=== PATIENT | male | born 1965 | race Caucasian/White ===

== ENCOUNTER → 2017-11-20 | Outpatient (CLI) | payer OTHER ==
[2017-11-20 15:54] LABS: BASO # 0.1 10^3/uL (0.0-0.2); BASO % 1.2 % (0.0-1.0); EOS # 0.5 10^3/uL (0.0-0.50); EOS % 7.2 % (0.0-3.0); HEMATOCRIT 43.3 % (42.0-52.0); HEMOGLOBIN 14.6 g/dl (14.0-18.0); IMMATURE GRANULOCYTE % 0.1 % (0-0); LYMPH # 1.9 10^3/uL (1.5-4.5); LYMPH % 25.4 % (24.0-44.0); MEAN CORPUSCULAR HEMOGLOBIN 30.8 pg (27.0-33.0); MEAN CORPUSCULAR HGB CONC 33.7 g/dl (32.0-36.5); MEAN CORPUSCULAR VOLUME 91.4 fl (80.0-96.0); MONO # 0.5 10^3/uL (0.0-0.8); MONO % 7.1 % (0.0-5.0); NEUTROPHILS # 4.3 10^3/uL (1.8-7.7); PLATELET COUNT, AUTOMATED 329 10^3/uL (150-450); RED BLOOD COUNT 4.74 10^6/uL (4.30-6.10); RED CELL DISTRIBUTION WIDTH 12.7 % (11.5-14.5); WHITE BLOOD COUNT 7.4 10^3/uL (4.0-10.0)
[2017-11-20 17:20] LABS: ANION GAP 5 MEQ/L (8-16); BLOOD UREA NITROGEN 13 MG/DL (7-18); CARBON DIOXIDE LEVEL 31 MEQ/L (21-32); CHLORIDE LEVEL 104 MEQ/L (98-107); CREATININE FOR GFR 0.97 MG/DL (0.70-1.30); GLOMERULAR FILTRATION RATE > 60.0 (>56); GLUCOSE, FASTING 82 MG/DL (70-105); POTASSIUM SERUM 4.8 MEQ/L (3.5-5.1); SODIUM LEVEL 140 MEQ/L (136-145)
== END ==
LOC: M LAB 15:07
DX: I70.213 Atherosclerosis of native arteries of extremities with intermittent claudication, bilateral legs (principal)
CPT/HCPCS: 80048

== ENCOUNTER → 2017-12-06 | Outpatient (CLI) | payer OTHER ==
[~2017-12-06] MED LIST: HEPARIN 1,000 UNITS/ML 10ML VIAL (FOR RADIOLOGY& DIALYSIS ONLY) As Ordered; ISOVUE-300 61% 50ML VIAL (Q9967) As Ordered; MIDAZOLAM INJ 2 MG/2 ML VIAL (J2250) As Ordered; fentaNYL 100 MCG/2 ML INJECTION (J3010) As Ordered
== END | disposition home or self-care (01) ==
LOC: M IRPRO 06:54
DX: I70.213 Atherosclerosis of native arteries of extremities with intermittent claudication, bilateral legs (principal)
CPT/HCPCS: 36246

== ENCOUNTER → 2018-02-07 | Outpatient (CLI) | payer OTHER | LOC: M RAD 10:46 | DX: I70.213 Atherosclerosis of native arteries of extremities with intermittent claudication, bilateral legs (principal); I87.393 Chronic venous hypertension (idiopathic) with other complications of bilateral lower extremity; F17.218 Nicotine dependence, cigarettes, with other nicotine-induced disorders | CPT/HCPCS: 93923 ==

== ENCOUNTER → 2021-01-18 | Outpatient (CLI) | payer OTHER, MEDICAID ==
[~2021-01-18] MED LIST changes: +ASPI-255 PO; +ATOR1TAB21 PO; -HEPARIN 1,000 UNITS/ML 10ML VIAL (FOR RADIOLOGY& DIALYSIS ONLY) As Ordered; -ISOVUE-300 61% 50ML VIAL (Q9967) As Ordered; -MIDAZOLAM INJ 2 MG/2 ML VIAL (J2250) As Ordered; -fentaNYL 100 MCG/2 ML INJECTION (J3010) As Ordered
[2021-01-18 13:53] LABS: CALCIUM LEVEL 10.4 MG/DL (8.5-10.1); CREATININE FOR GFR 1.37 MG/DL (0.70-1.30); MAGNESIUM LEVEL 2.3 MG/DL (1.8-2.4); POTASSIUM SERUM 4.1 MEQ/L (3.5-5.1)
== END ==
LOC: M WUC 11:00
PROVIDERS: ATTEND Student in an Organized Health Care Education/Training Program
DX: E83.52 Hypercalcemia (principal)

== ENCOUNTER → 2021-01-25 | Outpatient (CLI) | payer MEDICAID ==
[~2021-01-25] MED LIST changes: +ALBU83IN INH; +AMLO1TAB24 PO; +ASPI81TA26 PO; +BUDE10.7 INH; +FURO40TA2 PO; +GNP8.6TA PO; +MUCI600T31 PO; +PRED20TA PO; +VENTAER INH
--- NOTE | 2021-01-25 16:29 | RADONC.CN ---
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 He is referred urgently by Dr. Sinha for this telehealth consultation for RT in anticipation of EBUS biopsy on 01/30/21. Diagnosis/Treatment History Oncologic History December 2020: Patient notes onset of facial swelling plethora, hoarseness and orthopnea, generalized body ache He presented to [facility] where labs showed hypercalcemia, and imaging revealed extensive mediastinal adenopathy encasing the SVC as well as infradiaphragmatic shivani disease, and heterogenous appearing kidney parenchyma BL, which may represent malignancy. No large peripheral lung lesions, 2 small peripheral nodules <1cm. CT head with concern for intracranial lesions. He was discharged home for workup. He saw Dr. Sinha on 01/24/21 with plan to proceed with EBUS on 01/30/21. Interval History Patient and are on the phone. He is audibly hoarse. She does most of the talking. She reports he cannot tolerate lying flat due to SOB and that he has SOB at rest. His symptoms started about 3 weeks ago prior to presentation to [facility]. They deny syncope/near syncope and dysphagia. He notes the swelling has gradually worsened such that he cannot button the top button on his shirts as before. He is a current smoker. He denies fevers, chills, night sweats and weight loss. He denies paresthesias and weakness. He denies PHAM and other sensory changes. Past Medical History: HTN PVD COPD Past Surgical History: Appendectomy Cholecystecomy Hernia repair Fem-pop bypass Family History: Non-contributory Social History: 50+ pack year current smoker Drinks alcohol Allergies / Meds Allergies: Coded Allergies: No Known Allergies (Verified , 12/19/17) Home Meds Reported Medications Aspirin (Aspirin EC) 325 Mg Tabec, 325 MG PO DAILY, TAB 12/19/17 Atorvastatin Calcium (Atorvastatin Calcium) 20 Mg Tab, 20 MG PO DAILY 12/19/17 Review of Systems Events since last encounter N/A telehealth Vital Signs N/A telehealth Other Physical Findings N/A telehealth Diagnostic and Laboratory Diagnostic Review Radiologic images, relevant labs and pathology reports were personally reviewed and discussed with Mr. Reeves. Assessment and Plan Impression Mr. 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 He is referred urgently by Dr. Sinha for this telehealth consultation for RT in anticipation of EBUS biopsy on 01/30/21. Stage Undetermined, biopsy pending Performance Status ECOG 3 Plan We had an extensive discussion with Mr. Reeves regarding the diagnosis at hand and available therapeutic options. I have reviewed his imaging to date. His CT scans show large confluent shivani aggregates in the mediastinum in the absence of significant hilar adenopathy or peripheral lung mass. The shivani masses are encasing the SVC and there is significant superficial collateralization noted. There is retroperitoneal adenopathy L>R as well as BL enlarged and heterogenously enhancing kidneys with a possible right lateral upper pole mass. His CT head has several small foci of enhancement in the cerebral hemispheres which are indeterminate. Clinically he has subacute SVC syndrome. He would benefit from prompt therapy which given the possibility that this is a high grade malignancy (either lymphoma or SCLC) should be initiated after tissue is obtained. I have discussed this with Dr. Sinha who is planning biopsy on 01/30/21. Ideally RT to the mediastinum will proceed the same day as biopsy. I would hold on high dose steroid for now as these can cloud diagnosis of l ymphoma. I recommend 30 Gy in 10 fractions with 3D planning and daily CBCT for localization We discussed the logistics of receiving radiation therapy in detail including the need for a 1-time planning session. This will occur 01/26/21. We reviewed the side effects of treatment including esophagitis, skin reaction and fatigue. After discussing the risks, benefits and alternatives to radiation therapy, Mr. Reeves was amenable to pursuing radiotherapy. All questions were answered to the patient's satisfaction. We instructed the patient that if there were any questions,concerns or changes in clinical status in the interim to contact us. We also counselled that if he develops near syncopal symptoms, dysphagia, or increasing SOB that he should present to the ED here to expedite therapy to relieve the obstruction. Once a tissue diagnosis is made he can initiate care with medical oncology here. He should have a MRI head and PET-CT to complete his imaging workup in any event. I or Dr. Sinha can order these. Recommendations Palliative RT 30 Gy in 10 fractions to the mediastinal mass for SVC syndrome Simulation 01/26/21 This will follow EBUS biopsy on 01/30/21 unless his condition worsens in the interim MRI head and PET-CT to complete radiographic staging Billing Statement This is a telehealth consultation. Total time of [20] minutes was spent preparing for the visit [2], obtaining HPI [3], examining the patient [0], reviewing diagnostic tests [4], discussing management options [5], coordinating care [1], and writing this note [5]. MARY GRACE SPENCE MD Jan 25, 2021 16:29
== END ==
LOC: M ONCR 14:39
PROVIDERS: ATTEND General Practice
DX: R91.8 Other nonspecific abnormal finding of lung field (principal); I87.1 Compression of vein; C77.1 Secondary and unspecified malignant neoplasm of intrathoracic lymph nodes; E83.52 Hypercalcemia; R49.9 Unspecified voice and resonance disorder; I10 Essential (primary) hypertension; J44.9 Chronic obstructive pulmonary disease, unspecified; F17.200 Nicotine dependence, unspecified, uncomplicated

== ENCOUNTER → 2021-01-25 | Outpatient (CLI) | payer OTHER, MEDICAID | LOC: M LABSMTC 13:16 | PROVIDERS: ATTEND Anesthesiology | DX: Z01.812 Encounter for preprocedural laboratory examination (principal); Z20.822 Contact with and (suspected) exposure to COVID-19 ==

== ENCOUNTER 2021-01-27 11:09 | Inpatient (IN) | payer MEDICAID ==
[~2021-01-27] VITALS: Ht 180.3 cm; Wt 72.9 kg
[~2021-01-27 11:09] MED LIST changes: -ALBU83IN INH; -GNP8.6TA PO
--- NOTE | 2021-01-27 11:43 | REP ---
INDICATION: DYSPNEA/COUGH COMPARISON: 01/09/2021 TECHNIQUE: Portable AP view of the chest FINDINGS: Right lower lobe opacity including moderate pleural effusion. Remainder of the lung diana are well aerated and clear. Cardiac silhouette is normal. Skeletal structures intact. IMPRESSION: Moderate right lower lobe effusion and underlying airspace disease. <Electronically signed by Neo Campbell > 01/27/21 [id number]
[2021-01-27 11:54] LABS: BASO % 0.2 % (0.0-1.0); EOS # 1.4 10^3/uL (0.0-0.5); EOS % 6.5 % (0.0-3.0); HEMATOCRIT 34.5 % (42.0-52.0); LYMPH # 0.4 10^3/uL (1.5-5.0); LYMPH % 1.9 % (24.0-44.0); MEAN CORPUSCULAR HEMOGLOBIN 28.5 pg (27.0-33.0); MEAN CORPUSCULAR HGB CONC 31.9 g/dl (32.0-36.5); MEAN CORPUSCULAR VOLUME 89.4 fl (80.0-96.0); MONO # 1.1 10^3/uL (0.0-0.8); MONO % 5.1 % (2.0-8.0); NEUTROPHILS # 17.8 10^3/uL (1.5-8.5); NEUTROPHILS % 85.6 % (36.0-66.0); PLATELET COUNT, AUTOMATED 598 10^3/uL (150-450); RED BLOOD COUNT 3.86 10^6/uL (4.30-6.10); WHITE BLOOD COUNT 20.8 10^3/uL (4.0-10.0)
[2021-01-27 12:05] LABS: INR 0.97; PROTHROMBIN TIME 13.1 SECONDS (12.5-14.3)
[2021-01-27] MEDS ORDERED: GNP8.6TA PO (12:09)
[2021-01-27] MEDS ORDERED: ALBU83IN INH (12:09)
[2021-01-27 12:34] LABS: ALBUMIN 3.3 GM/DL (3.2-5.2); ALT/SGPT 18 U/L (12-78); BILIRUBIN,DIRECT 0.1 MG/DL (0.0-0.2); BILIRUBIN,TOTAL 0.4 MG/DL (0.2-1.0); BLOOD UREA NITROGEN 32 MG/DL (7-18); CALCIUM LEVEL 12.6 MG/DL (8.5-10.1); CARBON DIOXIDE LEVEL 31 MEQ/L (21-32); CHLORIDE LEVEL 98 MEQ/L (98-107); CK-MB VALUE MASS 1.1 NG/ML (<3.6); CPK CREATINE PHOSPHOKINASE 25 U/L (39-308); GLOMERULAR FILTRATION RATE 41.6 (>56); GLUCOSE, FASTING 99 MG/DL (70-100); NT-PRO BNP 1663 PG/ML (<125); POTASSIUM SERUM 4.5 MEQ/L (3.5-5.1); SODIUM LEVEL 134 MEQ/L (136-145); TOTAL PROTEIN 6.5 GM/DL (6.4-8.2); TROPONIN I < 0.02 NG/ML (< 0.10)
[2021-01-27] MEDS ORDERED: cefTRIAXone SOD 2 GM in D5W MINI-BAG PLUS 50 ML IV ONE (12:40)
[2021-01-27 12:43] LABS: RSV AMPLIFICATION NEGATIVE (NEGATIVE)
[2021-01-27] MEDS ORDERED: NS 1,000 ML IV ONE (12:50)
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
[2021-01-27] MEDS ORDERED: ACETAMINOPHEN TAB 650MG DOSE (2X325MG) PO PRN (13:40)
[2021-01-27] MEDS ORDERED: propofoL 200 MG/20 ML VIAL As Ordered ONE (14:31)
[2021-01-27] MEDS ORDERED: MIDAZOLAM INJ 2MG/2ML VIAL (J2250 PER 1MG) As Ordered ONE (14:31)
[2021-01-27] MEDS ORDERED: LIDOCAINE 2% 100MG/5ML SDV (FOR ANES.) As Ordered ONE (14:31)
[2021-01-27] MEDS ORDERED: SUGAMMADEX SODIUM 500 MG/5 ML VIAL (BRIDION) As Ordered ONE (14:31)
[2021-01-27] MEDS ORDERED: dexameTHASONE 4 MG/ML 1ML VIAL (J1100 PER 1MG) As Ordered ONE (14:31)
[2021-01-27] MEDS ORDERED: KETOROLAC 60MG 2ML VIAL As Ordered ONE (14:31)
[2021-01-27] MEDS ORDERED: fentaNYL 100 MCG/2 ML INJECTION (J3010) As Ordered ONE (14:31)
[2021-01-27] MEDS ORDERED: ONDANSETRON 4MG/2ML VIAL As Ordered ONE (14:31)
[2021-01-27] MEDS ORDERED: ROCURONIUM BROMIDE 50 MG/5 ML VIAL As Ordered ONE (14:31)
[2021-01-27] MEDS ORDERED: EPINEPHrine 1MG/10ML SYRINGE 1.5IN As Ordered ONE (15:19)
[2021-01-27] MEDS ORDERED: MUPIROCIN 2% OINT 22 GM TUBE As Ordered ONE (15:19)
[2021-01-27] MEDS ORDERED: CETACAINE SPRAY 5GM As Ordered ONE (15:19)
[2021-01-27] MEDS ORDERED: KETAMINE HCL 200 MG/20 ML VIAL As Ordered ONE (15:19)
[2021-01-27] MEDS ORDERED: BUPIVACAINE HCL 0.5% 10ML VIAL As Ordered ONE (15:19)
[2021-01-27] MEDS ORDERED: GLYCOPYRROLATE INJ 0.2 MG/ML 2 ML VIAL As Ordered ONE (15:19)
[2021-01-27] MEDS ORDERED: THROMBIN SOLN 20,000 UNITS KIT As Ordered ONE (15:19)
[2021-01-27] MEDS ORDERED: BUPIVACAINE LIPOSOME/PF 1.3% 20ML VIAL (13.3MG/ML)(EXPAREL)(C9290 PER1MG) As Ordered ONE (15:20)
[2021-01-27] MEDS ORDERED: MUPIROCIN 2% OINT 22 GM TUBE TOP ONE (16:00)
[2021-01-27] MEDS ORDERED: ceFAZolin SOD 2 GM in IV 1 EA IV ONE (16:00)
[2021-01-27] MEDS ORDERED: VANCOMYCIN HCL 1,000 MG, VIAL MATE ADAPTER 1 EACH in NS 250 ML IV SCH (16:05)
[2021-01-27] MEDS ORDERED: ALBUTEROL SULFATE 2.5 MG/0.5 ML INH NEB SOLN INH PRN (16:45)
[2021-01-27 17:13] LABS: PTH INTACT 10.7 PG/ML (18.5-88.0)
--- NOTE | 2021-01-27 17:39 | REP ---
INDICATION: POST OP IN PACU COMPARISON: 01/27/2021 at 11:35 a.m. TECHNIQUE: Portable AP view of the chest FINDINGS: Patient is status post right chest tube and the previously noted moderate pleural effusion and right basilar atelectasis has improved. No obvious pneumothorax. Left hemithorax remains stable and clear. Mediastinum and cardiac silhouette are grossly normal. Skeletal structures are intact. IMPRESSION: Right chest tube in stable position. Decreased right pleural effusion and right basilar atelectasis. <Electronically signed by Neo Campbell > 01/27/21 [id number]
[2021-01-27] MEDS ORDERED: ONDANSETRON 4MG/2ML VIAL IV PRN ×2 (17:40→19:35)
[2021-01-27] MEDS ORDERED: BISACODYL 10 MG SUPP PR PRN (17:40)
[2021-01-27] MEDS ORDERED: NORCO, ANEXSIA 5/325MG TABLET (HYDROcodone/ACETAMINOPHEN) PO PRN (17:40)
[2021-01-27] MEDS ORDERED: LEVALBUTEROL 1.25 MG/0.5 ML CONCENTRATE NEB NEB PRN (17:40)
[2021-01-27] MEDS ORDERED: PERCOCET 5MG/325MG TAB PO PRN (17:40)
[2021-01-27] MEDS ORDERED: D5W/0.9% SODIUM CHLORIDE 1,000 ML IV SCH (18:00)
[2021-01-27 18:12] LABS: LDH LACTATE DEHYDROGENASE 329 U/L (87-241)
--- NOTE | 2021-01-27 18:16 | RADENCPD ---
Date/Time of Encounter Date of Encounter: Jan 27, 2021 Time of Encounter: 18:10 Encounter Patient underwent EBUS and biopsy with Dr. Baez today. The initial impression on the biopsy specimen was NSCLC. He came down for his first fraction of radiation thereafter. His breathing was notably better than when I met him on . He was breathing comfortably on room air. He was far less orthopneic laying flat for treatment than he was on the CT table for simulation. We administered a large fraction which should tide him over until we resume treatment on Saturday morning @ 11:00AM. Recommend keeping him on IV steroids for the weekend at the present dose. These can be converted to a PO taper as he approaches discharge readiness. I will visit with the patient in greater depth after treatment on Saturday. MARY GRACE SPENCE MD Jan 27, 2021 18:16
[2021-01-27 18:26] LABS: PH BODY FLUID 7.564 UNITS (NOT ESTABLISHED); SOURCE, BODY FLUID pH PLEURAL
[2021-01-27] MEDS: MOM 30ML SUSPENSION UDC PO SCH (18:35)
[2021-01-27] MEDS: PANTOPRAZOLE 40MG TAB (PROTONIX) PO SCH (18:36)
--- NOTE | 2021-01-27 18:49 | ECGEPIP ---
[facility] - ED Test Date: 2021-01-27 Pat Name: COLIN THOMSON Department: Room: - Gender: Male Insurance Special Agent: ALLISON : [id number] Requested By: Yohannes Sevilla Order Number: [id number] Reading MD: Krupa Aviles Measurements Intervals [place] Rate: 88 P: 40 NC: 128 QRS: 42 QRSD: 92 T: 43 QT: 328 QTc: 396 Interpretive Statements Normal sinus rhythm Cannot rule out Anterior infarct , age undetermined NSTTW abnormalities low voltage limb No prior Electronically Signed on 01-27-2021 18:49:23 EST by Krupa Aviles
[2021-01-27 19:02] VITALS: BP 122/96
[2021-01-27 19:14] LABS: AMYLASE, BODY FLUID 8 U/L (NOT ESTABLISHED); CHOLESTEROL, BODY FLUID < 50 MG/DL (NOT ESTABLISHED); LDH, BODY FLUID 118 U/L (NOT ESTABLISHED); SOURCE, BODY FLUID ALBUMIN PLEURAL; SOURCE, BODY FLUID AMYLASE PLEURAL; SOURCE, BODY FLUID CHOL PLEURAL; SOURCE, BODY FLUID GLUCOSE PLEURAL; SOURCE, BODY FLUID LDH PLEURAL; SOURCE, BODY FLUID TOT PROTEIN PLEURAL; SOURCE, BODY FLUID TRIG PLEURAL; TOTAL PROTEIN, BODY FLUID 2.9 G/DL (NOT ESTABLISHED); TRIGLYCERIDE, BODY FLUID 15 MG/DL (NOT ESTABLISHED)
[2021-01-27] MEDS: VANCOMYCIN HCL 1,000 MG, VIAL MATE ADAPTER 1 EACH in NS 250 ML IV SCH (19:16)
[2021-01-27 19:26] LABS: SOURCE, BODY FLUID PLEURAL
[2021-01-27 19:27] LABS: APPEARANCE, BODY FLUID HAZY (CLEAR); PLEURAL FL COLOR YELLOW (COLORLESS)
[2021-01-27] MEDS ORDERED: fentaNYL 100 MCG/2 ML INJECTION (J3010) IV PRN (19:35)
[2021-01-27] MEDS ORDERED: oxyCODONE 5MG TAB PO PRN (19:35)
[2021-01-27] MEDS ORDERED: LR 1,000 ML IV SCH (19:35)
[2021-01-27 20:00] VITALS: BP 131/85; O2SAT 95
[2021-01-27] MEDS ORDERED: LEVALBUTEROL 1.25 MG/0.5 ML CONCENTRATE NEB NEB SCH (20:00)
[2021-01-27] MEDS: ALBUTEROL SULFATE 2.5 MG/0.5 ML INH NEB SOLN INH SCH (20:00)
[2021-01-27] MEDS: ADVAIR HFA 230/21MCG INHALER INH SCH (20:10)
[2021-01-27] MEDS: DOCUSATE SODIUM 100MG CAPSULE PO SCH (20:38)
[2021-01-27] MEDS: CEFEPIME HCL 1 GM in D5W MINI-BAG PLUS 50 ML IV SCH (20:38)
[2021-01-27] MEDS: SENNA 8.6 MG TAB (SENOKOT) PO SCH (20:38)
[2021-01-27] MEDS: KETOROLAC 30 MG/ML 1ML VIAL IV SCH (20:38)
[2021-01-27] MEDS: guaiFENesin ER 600 MG TAB PO SCH (20:38)
[2021-01-27 20:58] LABS: OSMOLALITY URINE 406 MOSM/KG (50-1400)
[2021-01-27 21:00] VITALS: BP 104/73
[2021-01-27 21:19] LABS: CREATININE,RANDOM URINE 54.4 MG/DL; SODIUM,RANDOM URINE 71 MEQ/L; UREA NITROGEN RANDOM URINE 388 MG/DL
[2021-01-27] MEDS: HEPARIN SOD (PORCINE) 5000UNITS/ML 1ML VIAL/SYRINGE SQ SCH (21:29)
[2021-01-27] MEDS: methylPREDNISolone 40MG 1ML VIAL IV SCH (21:29)
[2021-01-27 22:00] VITALS: BP 102/75
[2021-01-28] VITALS (8 sets, daily range): BP systolic 111–141; BP diastolic 71–99
[2021-01-28] MEDS: KETOROLAC 30 MG/ML 1ML VIAL IV SCH ×2 (02:57→08:45)
[2021-01-28] MEDS: methylPREDNISolone 40MG 1ML VIAL IV SCH ×3 (05:07→22:20)
[2021-01-28] MEDS: CEFEPIME HCL 1 GM in D5W MINI-BAG PLUS 50 ML IV SCH ×3 (05:07→22:20)
[2021-01-28 05:08] LABS: HEMATOCRIT 35.2 % (42.0-52.0); HEMOGLOBIN 10.8 g/dl (13.5-17.5); MEAN CORPUSCULAR HGB CONC 30.7 g/dl (32.0-36.5); MEAN CORPUSCULAR VOLUME 91.2 fl (80.0-96.0); PLATELET COUNT, AUTOMATED 519 10^3/uL (150-450); RED BLOOD COUNT 3.86 10^6/uL (4.30-6.10); WHITE BLOOD COUNT 17.2 10^3/uL (4.0-10.0)
[2021-01-28] MEDS: HEPARIN SOD (PORCINE) 5000UNITS/ML 1ML VIAL/SYRINGE SQ SCH ×3 (05:08→22:21)
[2021-01-28 05:29] LABS: ALBUMIN 2.8 GM/DL (3.2-5.2); BILIRUBIN,TOTAL 0.2 MG/DL (0.2-1.0); CALCIUM LEVEL 10.9 MG/DL (8.5-10.1); CREATININE FOR GFR 1.87 MG/DL (0.70-1.30); GLOMERULAR FILTRATION RATE 39.8 (>56); MAGNESIUM LEVEL 2.7 MG/DL (1.8-2.4); POTASSIUM SERUM 4.8 MEQ/L (3.5-5.1); TOTAL PROTEIN 6.7 GM/DL (6.4-8.2)
[2021-01-28 06:09] LABS: ABG BASE EXCESS 0.5 (-2.0-2.0); ABG HCO3 25.3 MEQ/L (22.0-26.0); ABG O2 SATURATION 98.9 % (95.0-99.0); ABG PARTIAL PRESSURE CO2 41.3 mmHg (35.0-45.0); ABG TOTAL CO2 26.6 MEQ/L (22.0-29.0); ABG pH (ARTERIAL) 7.405 UNITS (7.350-7.450)
[2021-01-28] MEDS: ADVAIR HFA 230/21MCG INHALER INH SCH ×2 (07:35→19:39)
--- NOTE | 2021-01-28 07:57 | IPNPDOC ---
Subjective Date Seen The patient was seen on 01/28/21. Subjective Chief Complaint/HPI Subjective: Seen at bedside. No acute distress, eating his breakfast. Had one round of radiation yesterday afternoon. States he feels much better than yesterday. Denies any sob, CP, abdominal discomfort, fever, chills, n/v/d. PHYSICAL EXAMINATION: VITAL SIGNS: see below GENERAL APPEARANCE: Patient is a pleasant and agreeable male who is laying in bed, + accessory muscles for breathing HEENT: EOMI. facial redness and swelling still present. Hoarseness of voice. Uvula and tongue midline. No posterior oropharyngeal erythema. Unable to appreciate significant cervical, axillary lymphadenopathy CARDIOVASCULAR: Regular rate and rhythm. PMI non-displaced. Enlarged veins over anterior chest wall noted. No JVD. no m/g/r LUNGS: Wheezing throughout, dullness to percussion more prominent on the right lower lobe, decreased tactile fremitus with mild asymmetrical chest expansion ABDOMEN: Soft, mildly tender in palpation throughout. No guarding or rebound tenderness EXTREMITIES: BUE edema and erythema (R>L). Trace lower extremity edema NEUROLOGICAL: A&O x3. No focal neurological deficits LABORATORY DATA: See below. MICROBIOLOGY: Please see below. ASSESSMENT AND PLAN: Patient is a 56 year old Male with a PMHx significant for COPD and PVD s/p stent placement, tobacco use (60+ pack year smoking history), who presented to [facility] ER due to worsening SOB, development of facial and upper extremity (right greater than left) swelling, orthopnea, and hoarseness for the past 4 months. Patient states that he has noticed positional, sharp pain over his anterior chest about 4 months ago, which has occurred daily but intermittently depending on his positioning. There is no association with movement. He also reports progressive worsening of his shortness of breath over this time period and is unable to ambulate greater than 50 feet without feeling short of breath. Patient does not follow with the PCP and the last time he saw a physician was more than 5 years ago. He reports that he has been meaning to establish care with a PCP, but due to COVID, he was unable to do so in a timely manner. Of note, Pt initially presented to [place] ED three weeks ago due to acute on chronic shortness of breath, intermittent sharp chest pains, and generalized body aches. He was found to have hypercalcemia (13.4) and a CTA that showed extensive mediastinal lymphadenopathy, 2 mm nodule left upper lobe, and a 5 cm peritracheal shivani mass but no pulmonary embolism. He was subsequently transferred to [facility] for further workup of malignancy. Further workup included a CT head that showed enhancement in the right temporal, right parietal and left frontal lobe concerning for metastatic disease. His UPEP/SPEP were unremarkable. CT abdomen showed retroperitoneal nodes/renal masses which they recommended to be followed up as an outpatient IR procedure (CT-guided biopsy). Patient was given IV fluids and IV Lasix for hypercalcemia as well as albuterol/DuoNeb/Spiriva/Mucinex in addition to 5 day course of steroids (prednisone 40 mg) for his COPD symptoms. He was discharged from the hospital with short course of Lasix and prednisone and inhalers. Patient then presented to [facility] on 01/24/[address] Sinha for these persistent symptoms as mentioned above, who has scheduled him for a endobronchial ultrasound with biopsy on 01/30/21 for what sounds like a clinical superior vena cava syndrome presentation, which at this point may be 2/2 to small cell lung ca vs. lymphoma. He was discharged with prednisone and home oxygen (2 L). A referral was also made to Dr. Miller (radiation oncology) who recommends Palliative radiation therapy, status post EBUS with biopsy per Dr. Sinha on 01/30/21. Most recent imaging shows large, confluent shivani aggregates in the mediastinum and the absence of significant hilar adenopathy or peripheral lung mass. The shivani masses are encasing the SVC and there is significant superficial collateralization. There is also a retroperitoneal adenopathy, left greater than right, as well as bilateral enlarged and heterogeneous enhancing kidneys with possible right lateral upper pole mass. There's also a moderate R pleural effusion shown on the XR chest (01/27/21) and cardiothoracic surgeon (Dr. Baez) was called for a formal consultation and plans for a mediastinotomy with diagnostics. 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 Discussed with Dr. Brooke about radiation s/p mediastinotomy immediately after OR today. I will also consult nephrology and speak with Dr. Saenz directly and appreciate further management for hypercalcemia. # R Parapneumonic effusion - Bronch with bx results- NSCLC s/p 1st round of radiation yesterday pm - pending cytology and gram stain from bx - Patient has leukocytosis, - Blood cultures pending. UA and culture pending - Will order for sputum culture - Currently on normal saline under cc per hour will assess fluid status, status post procedure per cardiothoracic. - - c/w abx IV Vanco/cefepime #Leukocytosis possibly 2/2 HCAP, possibly 2/2 post-obstructive PNA - afebrile - c/w fluids @ 100cc/h - 2 sets of blood, UA, Ucx, sputum cx, pending - procal - pending - trending Lactic acid - Coverage with IV vanco/cefepime - c/w Mucinex - c/w incentive spirometry / acapella # Clinical SVC syndrome - Bronch with biopsy per Dr. Baez-NSCLC - Radiation oncology (Dr. Miller) consultation- 1st round yesterday; 2nd round saturday @11am - c/w Solumedrol - suspect that pt's symptoms will improve significantly s/p radiation- will continue to monitor closely #Hypercalcemia - likely due to underlying maligancy/paraneoplastic syndrome - will order PTH, pthrp and vitamin d - pending - continue NS @100cc/h - Holding lasix - Nephrology consulted (Dr. Graff)- appreciate further recommendations; will consider Denosumab #HAWK - likely prerenal - c/w fluids - Will hold nephrotoxic medications / diuretics (Furosemide) - will order for urine sodium, cr and calculate FENA - nephrology on consult #Lactic acidosis - repeat LA 3s - will restart on IVF @100cc/h - pending sepsis workup - Possibly 2/2 work of breathing, possibly 2/2 sepsis - Will c/w IV fluids for now - Vanco/cefepime for broad coverage #COPD - Not believed to be decompensated at this point - Continue home inhalers - We'll switch her prednisone to IV Solu-Medrol 40 mg IV every 8 hours #PVD - c/w ASA 81 #HTN - BP well controlled - c/w Amlodipine with hold parameters - Will hold Furosemide DVT ppx: Heparin GI prophylaxis: protonix Diet: regular Fluids: NS @100cc/h CODE STATUS: FULL Disposition: PFS consult, and oncology consult to establish with oncologist to follow onoutpt basis once discharged from hospital Assessment /Plan Plan/VTE VTE Prophylaxis Ordered?: Yes VS, I&O, 24H, Ubaldo Vital Signs/I&O Vital Signs Date Time Temp Pulse Resp B/P (MAP) Pulse Ox O2 Delivery O2 Flow Rate FiO2 01/28/21 06:00 75 20 132/86 (101) 99 Nasal Cannula 2.0 01/28/21 04:00 96.8 I&O- Last 24 Hours up to 6 AM 01/28/21 06:00 Intake Total 3385 ml Output Total 1615 ml Balance 1770 ml Laboratory Data 24H LABS Laboratory Tests 2 01/27/21 11:18: Immature Granulocyte % (Auto) 0.7, Neutrophils (%) (Auto) 85.6H, Lymphocytes (%) (Auto) 1.9L, Monocytes (%) (Auto) 5.1, Eosinophils (%) (Auto) 6.5H, Basophils (%) (Auto) 0.2, Neutrophils # (Auto) 17.8H, Lymphocytes # (Auto) 0.4L, Monocytes # (Auto) 1.1H, Eosinophils # (Auto) 1.4H, Basophils # (Auto) 0.0, Nucleated Red Blood Cells % (auto) 0.0, Prothrombin Time 13.1, Prothromb Time International Ratio 0.97, Anion Gap 5L, Glomerular Filtration Rate 41.6L, Lactic Acid Level 2.7*H, Calcium Level 12.6H, Total Bilirubin 0.4, Direct Bilirubin 0.1, Aspartate Amino Transf (AST/SGOT) 6L, Alanine Aminotransferase (ALT/SGPT) 18, Alkaline Phosphatase 141H, Lactate Dehydrogenase 329H, Total Creatine Kinase 25L, Creatine Kinase MB 1.1, Creatine Kinase MB Relative Index 4.40H, Troponin I < 0.02, FJ-Vqm-Q-Type Natriuretic Peptide 1663H, Total Protein 6.5, Albumin 3.3, Albumin/Globulin Ratio 1.0, Thyroid Stimulating Hormone (TSH) 7.340H 01/27/21 11:24: Coronavirus (COVID-19)(PCR) NEGATIVE, Influenza Type A (RT-PCR) NEGATIVE, Influenza Type B (RT-PCR) NEGATIVE, Respiratory Syncytial Virus (PCR) NEGATIVE 01/27/21 12:32: POC pH (Misc Panel) 7.482H, POC Base Excess (Misc Panel) 5.0H, POC Saturated Percent O2 (Misc) 94L, POC pO2 (Misc Panel) 66.0L, POC pCO2 (Misc Panel) 38.4, POC HCO3 (Misc Panel) 28.7H, POC Total CO2 (Misc Panel) 30.0H 01/27/21 15:47: Osmolality 288, Whole Blood Ionized Calcium 6.2H, Gamma Glutamyl Transferase 55, 25-Hydroxy Vitamin D Total 21.0L, Parathyroid Hormone (Intact) 10.7L 01/27/21 16:06: Lactic Acid Followup at 4 Hours 2.0 01/27/21 17:37: Body Fluid pH 7.564, Body Fluid pH Source PLEURAL, Body Fluid WBC (Auto) 291H, Body Fluid RBC (Auto) < 2, Body Fluid Mononuclear Cells % Auto 89.0H, Fluid Polymorphonuclear Cell % Auto 11.0H, Body Fluid Glucose Source PLEURAL, Body Fluid Glucose 117, Body Fluid Protein Source PLEURAL, Body Fluid Total Protein 2.9, Body Fluid Albumin Source PLEURAL, Body Fluid Albumin 2.0, Body Fluid LDH Source PLEURAL, Body Fluid Lactate Dehydrogenase 118, Body Fluid Amylase Source PLEURAL, Body Fluid Amylase 8, Body Fluid Cholesterol < 50, Body Fluid Cholesterol Source PLEURAL, Body Fluid Triglyceride Source PLEURAL, Body Fluid Triglycerides 15, Pleural Fluid Source PLEURAL, Pleural Fluid Color YELLOW, Pleural Fluid Appearance HAZY 01/27/21 20:15: Urine Color YELLOW, Urine Appearance CLEAR, Urine pH 6.0, Urine Specific [place] 1.011, Urine Protein NEGATIVE, Urine Glucose (UA) NEGATIVE, Urine Ketones NEGATIVE, Urine Blood NEGATIVE, Urine Nitrite NEGATIVE, Urine Bilirubin NEGATIVE, Urine Urobilinogen 0.2, Urine Leukocyte Esterase NEGATIVE, Urine WBC (Auto) 6H, Urine RBC (Auto) 1, Urine Hyaline Casts (Auto) 0, Urine Bacteria (Auto) NEGATIVE, Urine Squamous Epithelial Cells 0, Urine Mucus (Auto) SMALL, Urine Sperm (Auto) , Urine Osmolality 406, Urine Random Creatinine 54.4, Urine Random Sodium 71, Urine Random Urea Nitrogen 388 01/28/21 04:50: Nucleated Red Blood Cells % (auto) 0.0, Anion Gap 6L, Glomerular Filtration Rate 39.8L, Lactic Acid Level 2.4*H, Calcium Level 10.9H, Magnesium Level 2.7H, Total Bilirubin 0.2, Gamma Glutamyl Transferase 42, Aspartate Amino Transf (AST/SGOT) 3L, Alanine Aminotransferase (ALT/SGPT) 16, Alkaline Phosphatase 137H, Total Protein 6.7, Albumin 2.8L, Albumin/Globulin Ratio 0.7 01/28/21 06:00: Blood Gas Bicarbonate Standard 25.0, Arterial Blood pH 7.405, Arterial Blood Partial Pressure CO2 41.3, Arterial Blood Partial Pressure O2 139.0H, Arterial Blood Total CO2 26.6, Arterial Blood HCO3 25.3, Arterial Blood Base Excess 0.5, Arterial Blood Oxygen Saturation 98.9 CBC/BMP Laboratory Tests 01/27/21 11:18 01/28/21 04:50 Microbiology Microbiology 01/27/21 Gram Stain - Final, Resulted 01/27/21 Sputum Culture, Resulted Pending 01/27/21 Acid Fast Stain, Received Pending 01/27/21 Mycobacterial Culture, Received Pending 01/27/21 Fungal Smear, Received Pending 01/27/21 Fungal Culture, Received Pending 01/27/21 Gram Stain - Final, Resulted 01/27/21 Body Fluid Culture, Resulted Pending 01/27/21 Anaerobic Culture, Resulted Pending 01/27/21 Blood Culture, Received Pending 01/27/21 Blood Culture, Received Pending GME ATTESTATION GME ATTESTATION My faculty preceptor for this patient encounter was physically present during the encounter and was fully available. All aspects of the patient interview, examination, medical decision making process, and medical care plan development were reviewed and approved by the faculty preceptor. The faculty preceptor is aware and concurs with the plan as stated in the body of this note and will attest to such by his/her cosignature. ATTENDING NOTE I, Rachele Bocanegra, have independently examined this patient and performed my own physical exam, as well as reviewed the documentation and edited where necessary. I have discussed in detail with the resident / student the findings and plan of treatment as documented by the resident / student and edited their note. I agree with their findings and treatment plan and have edited their documentation. I will continue to follow the patient during this hospital stay. Suzi Gauthier DO Jan 28, 2021 07:57 RACHELE BOACNEGRA MD Jan 28, 2021 14:12
[2021-01-28] MEDS: ALBUTEROL SULFATE 2.5 MG/0.5 ML INH NEB SOLN INH SCH ×4 (08:00→19:39)
--- NOTE | 2021-01-28 08:26 | REP ---
INDICATION: pleural effusion COMPARISON: 01/27/2021 TECHNIQUE: PA and lateral. FINDINGS: Right-sided chest tube in stable position. Right hemithorax demonstrates relatively stable pleuroparenchymal changes at the base including blunting to the diaphragmatic surface and costophrenic angle suggesting elements of atelectasis and small pleural reaction. The left hemithorax demonstrates new blunting of the diaphragmatic surface and costophrenic angle raising the possibility of small new left pleural effusion. Mediastinum and cardiac silhouette are within normal limits and stable. No obvious pneumothorax identified. Skeletal structures are intact. IMPRESSION: 1. No significant change to the right hemithorax. No obvious right pneumothorax. 2. New blunting of the left diaphragmatic surface and costophrenic angle raise the possibility of small pleural reaction. <Electronically signed by Neo Campbell > 01/28/21 0871
[2021-01-28] MEDS: VANCOMYCIN HCL 1,000 MG, VIAL MATE ADAPTER 1 EACH in NS 250 ML IV SCH ×2 (08:43→20:38)
[2021-01-28] MEDS: guaiFENesin ER 600 MG TAB PO SCH ×2 (08:43→20:39)
[2021-01-28] MEDS: MOM 30ML SUSPENSION UDC PO SCH (08:44)
[2021-01-28] MEDS: PANTOPRAZOLE 40MG TAB (PROTONIX) PO SCH (08:44)
[2021-01-28] MEDS: ASPIRIN 81MG ENTERIC TABLET PO SCH (08:44)
[2021-01-28] MEDS: DOCUSATE SODIUM 100MG CAPSULE PO SCH ×2 (08:44→20:39)
[2021-01-28] MEDS: amLODIPine 5 MG TAB PO SCH (08:44)
[2021-01-28] MEDS: PERCOCET 5MG/325MG TAB PO PRN (10:45)
[2021-01-28] MEDS: NS 1,000 ML IV SCH ×2 (10:45→20:38)
[2021-01-28] MEDS ORDERED: NS 1,000 ML IV ONE (15:30)
[2021-01-28] MEDS: SENNA 8.6 MG TAB (SENOKOT) PO SCH (20:38)
[2021-01-29] VITALS (8 sets, daily range): BP systolic 118–150; BP diastolic 64–98; O2SAT 95–98
[2021-01-29] MEDS: CEFEPIME HCL 1 GM in D5W MINI-BAG PLUS 50 ML IV SCH ×3 (04:17→21:42)
[2021-01-29] MEDS: NS 1,000 ML IV SCH ×3 (04:17→22:30)
[2021-01-29] MEDS: HEPARIN SOD (PORCINE) 5000UNITS/ML 1ML VIAL/SYRINGE SQ SCH ×3 (05:48→21:43)
[2021-01-29] MEDS: methylPREDNISolone 40MG 1ML VIAL IV SCH ×3 (05:48→21:43)
[2021-01-29] MEDS: PERCOCET 5MG/325MG TAB PO PRN (06:55)
[2021-01-29 07:21] LABS: HEMATOCRIT 33.4 % (42.0-52.0); HEMOGLOBIN 10.5 g/dl (13.5-17.5); MEAN CORPUSCULAR HEMOGLOBIN 28.2 pg (27.0-33.0); MEAN CORPUSCULAR HGB CONC 31.4 g/dl (32.0-36.5); MEAN CORPUSCULAR VOLUME 89.8 fl (80.0-96.0); PLATELET COUNT, AUTOMATED 520 10^3/uL (150-450); RED BLOOD COUNT 3.72 10^6/uL (4.30-6.10); WHITE BLOOD COUNT 23.3 10^3/uL (4.0-10.0)
[2021-01-29 07:39] LABS: ALBUMIN 2.7 GM/DL (3.2-5.2); BILIRUBIN,TOTAL 0.2 MG/DL (0.2-1.0); CALCIUM LEVEL 11.4 MG/DL (8.5-10.1); CREATININE FOR GFR 1.58 MG/DL (0.70-1.30); GLOMERULAR FILTRATION RATE 48.4 (>56); POTASSIUM SERUM 5.7 MEQ/L (3.5-5.1); TOTAL PROTEIN 5.8 GM/DL (6.4-8.2); VANCOMYCIN LEVEL TROUGH 18.5 UG/ML (10.0-20.0)
[2021-01-29] MEDS: ALBUTEROL SULFATE 2.5 MG/0.5 ML INH NEB SOLN INH SCH ×4 (08:00→20:00)
[2021-01-29] MEDS: ADVAIR HFA 230/21MCG INHALER INH SCH ×2 (08:32→20:22)
--- NOTE | 2021-01-29 08:36 | IPNPDOC ---
Text Note Date of Service The patient was seen on 01/29/21. NOTE Subjective: Patient is a 56 year old Male with a PMHx significant for COPD and PVD s/p stent placement, tobacco use (60+ pack year smoking history), who presented to [facility] ER due to worsening SOB, development of facial and upper extremity (right greater than left) swelling, orthopnea, and hoarseness for the past 4 months. Recently. Patient was found to have mediastinal lymphadenopathy and was transferred to [facility] for further workup. "Of note, Pt initially presented to [place] ED three weeks ago due to acute on chronic shortness of breath, intermittent sharp chest pains, and generalized body aches. He was found to have hypercalcemia (13.4) and a CTA that showed extensive mediastinal lymphadenopathy, 2 mm nodule left upper lobe, and a 5 cm peritracheal shivani mass but no pulmonary embolism. He was subsequently transferred to [facility] for further workup of malignancy. Further workup included a CT head that showed enhancement in the right temporal, right parietal and left frontal lobe concerning for metastatic disease. His UPEP/SPEP were unremarkable. CT abdomen showed retroperitoneal nodes/renal masses which they recommended to be followed up as an outpatient IR procedure (CT-guided biopsy). Patient was given IV fluids and IV Lasix for hypercalcemia as well as albuterol/DuoNeb/Spiriva/Mucinex in addition to 5 day course of steroids (prednisone 40 mg) for his COPD symptoms. He was discharged from the hospital with short course of Lasix and prednisone and inhalers. Patient then presented to [facility]ology on 01/24/[address] Sinha for these persistent symptoms as mentioned above, who has scheduled him for a endobronchial ultrasound with biopsy on 01/30/21 for what sounds like a clinical superior vena cava syndrome presentation, which at this point may be 2/2 to small cell lung ca vs. lymphoma. He was discharged with prednisone and home oxygen (2 L). A referral was also made to Dr. Miller (radiation oncology) who recommends Palliative radiation therapy, status post EBUS with biopsy per Dr. Sinha on 01/30/21." Patient was sent to the emergency room for a large sided effusion for drainage before radiation. Patient was urgently taken to the OR for drainage. A bronchoscopy was completed for tissue diagnosis and patient was subsequently taken for radiation on the same day. Patient was admitted to the hospital service for further evaluation, treatment. Patient was seen and examined at the bedside. Currently he reports that he feels weak, denies any CP, palpitations or SOB. Denies any N/V, abdominal pain, C/D. Reports his arm swelling is worse today. Objective: Vitals (See below) General: Lying in bed, AAOx3 HEENT: NC, AT CVS: +S1S2 Lungs: Fair air entry b/l, mild wheezing appreciated bilaterally. No rhonchi or crackles Abdomen: Soft, Non-distended, non-tender Extremities: Bilateral upper extremity edema, - Calf tenderness Assessment and plan: R pleural effusion - likely 2/2 malignancy - Reports improvement of breathing - Saturating well on nasal cannula - s/p Drainage and chest tube placement with Dr. Baez (01/27) - c/w Mucinex - c/w incentive spirometry / acapella - Dr. Baez on consult; appreciate their input Malignancy - 2/2 likely NSCLC - Bronchoscopy biopsy: Unofficial NSCLC - Has started Radiation therapy - Will consult Oncology on Saturday SVC syndrome - Received radiation on 01/27; Next scheduled for 01/30 - c/w Solumedrol - Radiation oncology (Dr. Miller) consultation Leukocytosis possibly 2/2 HCAP, possibly 2/2 post-obstructive PNA - Remains hemodynamically stable and afebrile - Blood cultures 01/27: Negative at 24 hours - Pleural fluid inconsistent with infection - c/w Vancomycin and Cefepime (Day #3) Hypercalcemia - likely 2/2 malignancy - PTH low - Will hold fluids (re: edema) - Nephrology on consultation; appreciate their input Acute renal failure - possibly 2/2 pre-renal etiology - Cr improving slightly - Will hold nephrotoxic medications / diuretics (Furosemide) - Nephrology on consultation; appreciate their input Lactic acidosis - Improving - possibly 2/2 malignancy, less likely 2/2 infectious etiology Thrombocytosis - likely 2/2 reactive etiology - Will continue to trend Normocytic anemia - Hg remains stable - No evidence of bleeding Acute COPD exacerbation - Mild wheezing appreciated - c/w Inhaled therapy as ordered - c/w Solumedrol PVD - c/w ASA 81 HTN - BP well controlled - c/w Amlodipine with hold parameters - Will hold Furosemide (re: HAWK) GERD - c/w Protonix DVT Prophylaxis - c/w Heparin Disposition: - Awaiting clinical improvement - Oncology input on Saturday VS,[place], I+O VS, Fishbone, I+O Laboratory Tests 01/29/21 07:03 Vital Signs Date Time Temp Pulse Resp B/P (MAP) Pulse Ox O2 Delivery O2 Flow Rate FiO2 01/29/21 08:00 97.2 76 20 142/91 (108) 95 Nasal Cannula 2.0 I&O- Last 24 Hours up to 6 AM 01/29/21 06:00 Intake Total 5090 ml Output Total 1940 ml Balance 3150 ml LILO CUENCA MD Jan 29, 2021 08:36
[2021-01-29] MEDS ORDERED: SOD POLYSTYRENE SULFONATE SUSP 15 GM/60 ML UD PO ONE (09:00)
[2021-01-29] MEDS: MOM 30ML SUSPENSION UDC PO SCH (09:00)
[2021-01-29] MEDS: guaiFENesin ER 600 MG TAB PO SCH ×2 (09:01→21:43)
[2021-01-29] MEDS: VANCOMYCIN HCL 1,000 MG, VIAL MATE ADAPTER 1 EACH in NS 250 ML IV SCH ×2 (09:01→19:46)
[2021-01-29] MEDS: amLODIPine 5 MG TAB PO SCH (09:01)
[2021-01-29] MEDS: ASPIRIN 81MG ENTERIC TABLET PO SCH (09:01)
[2021-01-29] MEDS: PANTOPRAZOLE 40MG TAB (PROTONIX) PO SCH (09:01)
[2021-01-29] MEDS: DOCUSATE SODIUM 100MG CAPSULE PO SCH ×2 (09:01→21:43)
--- NOTE | 2021-01-29 09:08 | REP ---
INDICATION: pleural effusion COMPARISON: 01/28/2021 TECHNIQUE: PA and lateral. FINDINGS: Right hemithorax is stable with chest tube and small pleural effusion with basilar atelectasis again noted. No obvious pneumothorax. Left hemithorax demonstrates slight increased to the small left pleural effusion with associated infrahilar and basilar atelectasis. Mediastinum and cardiac silhouette stable. Skeletal structures stable. IMPRESSION: 1. Right hemithorax is relatively stable with small pleural effusion and atelectasis. 2. Small left pleural effusion please slightly increased from prior examination with associated atelectasis. <Electronically signed by Neo Campbell > 01/29/21 0904
[2021-01-29 09:51] LABS: MAGNESIUM LEVEL 2.2 MG/DL (1.8-2.4); PHOSPHORUS LEVEL 4.2 MG/DL (2.5-4.9); URIC ACID 5.9 MG/DL (3.5-7.2)
[2021-01-29] MEDS: CALCITONIN SALMON (MIACALCIN) 400INTERNATIONAL UNITS/2ML INJ (J0630) SQ SCH ×2 (10:11→21:00)
[2021-01-29] MEDS ORDERED: FUROSEMIDE 20MG/2ML VIAL (J1940) IV ONE (11:55)
[2021-01-29] MEDS ORDERED: DENOSUMAB (XGEVA) 120MG/1.7ML VIAL (J0897 PER 1MG) (FOR ONCOLOGY) SC ONE (12:00)
--- NOTE | 2021-01-29 13:53 | RO ---
OPERATIVE NOTE DATE OF OPERATION: 01/27/2021 PREPROCEDURE DIAGNOSIS: Mediastinal mass and lymphadenopathy. 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 PROCEDURE: Bronchoscopy with biopsy and insertion of a right lateral chest tube for pleural effusion. SURGEON: Nasir Baez M.D. TABLE COVER FOLDER: None. ANESTHESIA: General. DESCRIPTION OF PROCEDURE: Under satisfactory general anesthesia, the patient's cords were inspected and it was found that the left cord was not moving and about only fdc to the midline. The right cord moved with inspiration. The bronchoscopy revealed tumor diffusely spread throughout the tracheobronchial tree in the trachea right and left mainstem bronchi extending all the way down to the bronchus intermedius on the right and to the end of the left mainstem bronchus on the left. There was tumor on both sides of the trachea just above the beka with the left-sided tumor looking quite ulcerated with an indentation into the mucosa of the trachea. The right side tracheal lesion was exophytic and this was copiously biopsied and sent for frozen section and touch prep, which showed poorly differentiated squamous cell carcinoma. As such, the planned mediastinoscopy was not done as the diagnosis could be obtained by bronchoscopy. Chest tube drained 1500 mL of serous fluid. Under satisfactory general anesthesia and after inspected the cords, the bronchoscope was placed in the tracheobronchial tree with the above results. The right-sided tracheal exophytic tumor was copiously biopsied and sent for pathological examination. Noted was the tumor was not very vascular and did not bleed very much. What bleeding there was, was controlled with saline epinephrine solution. After receiving the diagnosis from pathology, the patient's right chest was prepped and draped in the usual sterile fashion and infiltrated with Exparel in the approximate sixth intercostal space. An incision was made and a tunnel created in the chest without difficulty. A #24 chest tube was placed with the above results. This was secured to the chest wall with 2-0 silk suture. This was connected to the Pleur-Evac. The patient tolerated the procedure well and left the operating room in satisfactory condition to the recovery room to be taken directly to radiation therapy for superior vena cava syndrome.
--- NOTE | 2021-01-29 14:47 | CR ---
CONSULTATION DATE: 01/27/2021 REASON FOR CONSULTATION: The patient is seen at the request of the emergency room for a pleural effusion and superior vena cava syndrome. HISTORY OF PRESENT ILLNESS: The patient is a 56-year-old white male whose story starts about three to four months ago, when he started to notice his voice becoming hoarse, as well as sharp chest pain in his upper chest, which then migrated to his lower chest and his abdomen. In the last two to three months, he has become more progressively short of breath such that he even has a hard time moving around his house. His shortness of breath has progressed to the point where he can no longer lie flat and has to have his back supported by pillows. He has also noticed that his face has been swelling and that he has new distended veins on his skin on his upper chest. He has also had an increase in his cough with production of white to clear sputum. There has been no hemoptysis. Due to lack of insurance, he has not seen a primary care physician in the last five to seven years. Approximately three weeks ago, he went to the [facility] for his shortness of breath and chest pain. A CT angiogram was undertaken on 01/08/[address] [facility] [address] angio protocol. It did not show a pulmonary embolism; however, he had a massively replaced mediastinum with what looks to be lymphadenopathy. The study was done with contrast and showed extreme narrowing of the superior vena cava such that it was only a slit. Please see my description below. He was then sent to [facility] and a CT of his head by report showed brain metastasis and retroperitoneal shivani metastasis. He was also found to be hypercalcemic. For some reason, he was discharged from the hospital even with the clinical SVC syndrome and then, he was seen by Dr. Sinha of pulmonology this afternoon. She recognized that this was a serious problem and sent him to the emergency room for further evaluation. At the same time, she scheduled him for a bronchoscopy on Saturday. PAST MEDICAL HISTORY: 1. Chronic obstructive pulmonary disease. 2. Peripheral vascular disease with a stent in the left leg. 3. Tobacco abuse. 4. 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 5. Deep vein thrombosis in the remote past. PAST SURGICAL HISTORY: 1. Cholecystectomy. 2. Appendectomy. 3. Inguinal hernia x2. 4. 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 5. Status post left stent in the lower left extremity. HOME MEDICATIONS: 1. Amlodipine 5 mg q. day. 2. Aspirin 81 mg q. day. 3. Breztri inhaler. 160/9/4.8 mg two puffs b.i.d. 4. Lasix 40 mg q. day. 5. Prednisone 40 mEq q. day. 6. Senna 17.2 mg q. h.s. ALLERGIES: None. HABITS: Now smokes a half-pack per day, but only recently smoked up to two to three packs per day of reservation cigarettes. Alcohol presently denies. Illicit drug occasional marijuana, but not for the last few years. EXPOSURES: He has one pug dog at home along with a cat. No birds. No exposure to tuberculosis. 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 He states that his license was taken away by the government. REVIEW OF SYSTEMS: Constitutional: Without fever, chills, sweats, or night sweats. Eyes: He is blind in his right eye secondary to a suicide attempt where he shot himself in the right zoroastrianism; this was many years ago. Nose: Without epistaxis. Mouth: Edentulous, has dentures. Respiratory: See HPI. Cardiac: See HPI. GI: Without nausea, vomiting, or diarrhea, but does have constipation. No melena or hematochezia. He has not had any dysphagia. : Complains of blood clots in his urine about three weeks ago, which have only occurred once without dysuria. Neurologic: Without paresthesias, paralysis, or prior seizures. Psychiatric: Denies pathological anxieties, depressions, or psychosis. PHYSICAL EXAMINATION: GENERAL APPEARANCE: Well-developed, undernourished white male in mild respiratory distress with shortness of breath. VITAL SIGNS: Temperature is 97.3 with a heart rate of 88 in a sinus rhythm. Respiratory rate of 30 without the use of accessory muscles who is 100% saturated on 2 liters nasal cannula and whose blood pressure is 117/82. EYES: He has disconjugate gaze. 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 Left eye shows a round reactive pupil. HEAD: Normocephalic. NOSE: Without deformity. MOUTH: Shows his mucous membranes to be pink and moist. Lips and commisures without lesions and no thrush. He is edentulous. NECK: Supple, but neck and head are swollen. I see jugular venous distention. He has 2+ carotid upstrokes. No bruits. No thyromegaly. I do not appreciate cervical lymphadenopathy. LUNGS: Show markedly decreased breath sounds in the right lower hemithorax with a dull percussion note in the right hemithorax. He has some expiratory wheezing on both sides. Percussion note is full to the diaphragm on the left. He has engorged veins over his upper chest and lower neck. CARDIAC: Without murmurs, clicks, gallops, or rubs. I cannot feel his PMI. S1 and S2 are normal. He is cachectic. ABDOMEN: Soft and nontender. Bowel sounds are positive. There is no hepatomegaly. No CVA tenderness. He does have tenderness in his hernia incision on the left side. There is no CVA tenderness and no hepatomegaly. EXTREMITIES: Show no pretibial edema. No calf tenderness. No differential swelling of the upper extremities. SKIN: Warm, dry, and perfuse without cyanosis or mottling including that of the nail beds and knees. PSYCHIATRIC: Shows him to be awake, alert, and oriented x3 with appropriate mood and affect and conversational. LABORATORY DATA: His white count today is 20.8 with hemoglobin and hematocrit of 11.0 and 34.5 respectively with a platelet count of 598,000. Differential shows 85% neutrophils, 2% lymphocytes, and 5% monocytes. There are no immature forms and no toxic granulations. His chemistries today show nearly normal electrolytes with BUN and creatinine of 32 and 1.80, which is elevated from his last encounter on 01/03/2018, where he had a normal creatinine of 0.94. His calcium is 12.6 with a corresponding albumin of 3.3 making him hypercalcemic. AST and ALT are 6 and 18 respectively. TSH is 7.34, which is above the upper limits of normal. He is COVID negative. IMAGING DATA: His chest CT done at [facility] on 01/08/2021, shows extended collaterals over the chest wall and neck. His SVC is severely narrowed with a minimum right-left dimension of 3 mm at best. He has massive mediastinal lymphadenopathy. He has indentations on both sides of his trachea just above the beka both left and right. It looks like invading tumor. His esophagus is patent throughout the mediastinum. Trachea is also patent as are both right and left bronchi. The mass from the mediastinum is extending all around his right and left mainstem bronchi. He has severe emphysematous changes throughout, but particularly noticeable in the upper lobes. He has a very small right pleural effusion on the 01/[address] done on 01/26 yesterday by radiation therapy shows a large pleural effusion with the same mediastinal mass effect. There is no pericardial effusion. This was done without contrast. I cannot make out the adrenals on the localization CT. On the CT angio of 01/08 he looks to have hypertrophy of the left adrenal with a possible mass extending into the retroperitoneum and I cannot make out the right adrenal accurately. I do not see any liver lesions. PLAN AND DISCUSSION: He has severe superior vena cava (SVC) syndrome. I am surprised it was not treated at [facility] as it was quite clear in the middle of December it was present. I am also surprised that diagnosis was not attempted. Nevertheless, I think this is serious enough I will undertake a diagnosis either by bronchoscopy or mediastinoscopy. There is a better than even chance of being able to get this by bronchoscopy as I see two indentations in the trachea. If not, I will under take a mediastinoscopy. Mediastinoscopy is somewhat problematic in that he has SVC syndrome and there will be increased venous bleeding. After establishing a diagnosis, Dr. Brooke of radiation oncology has consented to treat him immediately. There is also the possibility this is lymphoma; I have my doubts given his smoking history. 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 I will also drain his chest and send the fluid off for the requisite studies. He should be anticoagulated with prophylactic heparin or Lovenox.
--- NOTE | 2021-01-29 16:54 | IPN ---
PROGRESS NOTE DATE: 01/28/2021 SUBJECTIVE: This is the first postoperative day after his bronchoscopy and extensive biopsy of a tracheal lesion, which now turns out to be poorly differentiated squamous cell carcinoma with mechanical reduction of the tumor mass within the trachea and a chest tube for pleural effusion, which is presumed to be malignant; although pathology is pending. His pain is being fairly well controlled at the chest tube insertion site. He is hesitant to take narcotic analgesics. His creatinine is still up and NSAIDs are not appropriate at this point in time. OBJECTIVE: VITAL SIGNS: Show a T-max of 98.0 with a heart rate that ranges between 83 and 75 in sinus rhythm. Respiratory rate of 16 to 24 without the use of accessory muscles who is 95% to 99% saturated on 2 liters nasal cannula and whose blood pressure is ranging between 141/99 to 111/71. INTAKE AND OUTPUT: Over the past 24 hours has been recorded as 2400 in and 1080 out for a positivity of 1325 mL. In the last 10 hours, he has put out 255 mL from the chest tube. There is no air leak. RESPIRATORY: His lungs show bilateral coarse rhonchi in mid to late expiration. These do not clear with coughing. Percussion notes are full to the diaphragm. CARDIAC: Without murmurs, clicks, gallops, or rubs. I cannot feel his PMI. S1 and S2 are normal. ABDOMEN: Soft and nontender. Bowel sounds are positive. There is no hepatomegaly. No CVA tenderness. EXTREMITIES: Show no pretibial edema, but 2 to 3+ arm edema with the right greater than the left. He still has distended veins over his chest and base of his neck. SKIN: Warm, dry, and perfused without cyanosis or mottling, including that of the nail beds and knees. His upper extremities and head have a bluish tint to them. NECK: Supple. I cannot detect jugular venous distention. He is swollen, however. Trachea is midline. There is no subcutaneous emphysema. MOUTH: Shows the mucous membranes to be pink and moist. Lips and commisures are without lesions and no thrush. EYES: Show his pupils equal and reactive. Extraocular movements are intact. Sclerae nonicteric. NEUROLOGIC: Shows II through XII intact. Normal gross motor, gross sensation intact. Gait is not tested. PSYCHIATRIC: Shows his to be awake, alert, and oriented x3 with appropriate mood and affect and conversational. LABORATORY DATA: His white count today is 17.2 with hemoglobin and hematocrit of 10.8 and 35.2 and a platelet count of 519,000 stable. Chemistries today show a BUN and creatinine of 40 and 1.87 with essentially normal electrolytes. Calcium is 8.9 with a corresponding albumin of 2.8. He is definitely hypercalcemic. His pleural fluid has been returned with a pH of 7.5 with a glucose of 117, LDH of 118 with a corresponding serum LDH of 329. He has 291 white cells, 89% are mononuclear lymphocytes, and 11% are neutrophils. This actually looks like a transudative effusion maybe secondary to his SVC syndrome. It is normoglycemic. It is, however, predominantly lymphocytic and monocytic. Pathology is pending. IMAGING DATA: His chest x-ray shows his lungs fully expand to the chest wall. There is ever so slight blunting of the right costophrenic angle. I do not have a preoperative x-ray to compare other than a portable chest x-ray. I cannot really tell if the mediastinal mass is smaller. IMPRESSION: 1. 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 2. Massive mediastinal lymphadenopathy. 3. Superior vena cava (SVC) syndrome. 4. Tobacco abuse. 5. Underlying chronic obstructive pulmonary disease (COPD). 6. Renal insufficiency acute. 7. History of peripheral vascular disease. PLAN AND DISCUSSION: I will continue his chest tube on suction. He underwent radiation therapy last night and is going to continue on Saturday. He does have a lactic acidosis for which I cannot explain, other than chronically low cardiac output secondary to poor venous return from his SVC syndrome. I do not think that he is infected. He remains on Rocephin as an antibiotic, although I do not know if that is really necessary. He is on prednisone, which can explain his leukocytosis. I did obtain copious amounts of samples with some very large samples, which should be sufficient for molecular testing.
--- NOTE | 2021-01-29 17:32 | IPN ---
PROGRESS NOTE DATE: 01/29/2021 SUBJECTIVE: Mr. Reeves has had a fairly uneventful 24 hours. His extremities and head are still swollen. OBJECTIVE: VITAL SIGNS: Show a T-max of 97.3 with a heart rate that ranges between 76 and 80 in sinus rhythm. Respiratory rate of 19 to 22 without the use of accessory muscles who is 95% to 100% saturated on 2 liters nasal cannula and whose blood pressure is ranging between 150/84 to 141/91. INTAKE AND OUTPUT: Over the past 24 hours has been recorded as 4670 in and 1505 out for a positivity of 3100 mL. He has taken in 1200 mL in p.o. intake and 3470 mL in IV. He has put 470 mL out the chest tube and 170 mL in the last 10 hours. There is no air leak. His weight today is 69.7 kg compared to 68.1 kg yesterday. RESPIRATORY: His lungs show equal breath sounds on either side with some scattered rhonchi, which clear with coughing. Percussion notes are full to the diaphragm. CARDIAC: Without murmurs, clicks, gallops, or rubs. I cannot feel his PMI. S1 and S2 are normal. ABDOMEN: Soft and nontender. Bowel sounds are positive. There is no hepatomegaly. No CVA tenderness. EXTREMITIES: Show no pretibial edema, but he has 3+ edema in his hands and head. He has a bluish ting to his head. SKIN: Warm, dry, and perfused without cyanosis or mottling, including that of the nail beds and knees. NECK: Supple. There is no jugular venous distention that I can detect. The trachea is midline. There is no subcutaneous emphysema. Trachea is midline. MOUTH: Shows the mucous membranes to be pink and moist. Lips and commisures are without lesions and no thrush. EYES: Show his pupils equal and reactive. Extraocular movements are intact. Sclerae nonicteric. NEUROLOGIC: Shows II through XII intact. Normal gross motor, gross sensation intact. Gait is not tested. PSYCHIATRIC: Shows him to be awake, alert, and oriented x3 with appropriate mood and affect and conversational. LABORATORY DATA: His white count is 23.3 with a hemoglobin and hematocrit of 10.5 and 33.4 respectively. Platelet count is 520,000. Electrolytes show a potassium of 5.7 with a BUN and creatinine of 39 and 1.58. Calcium is 11.4 with an albumin of 2.7. Pleural fluid shows no organisms on gram stain and no growth aerobically or anaerobically. Blood cultures were all negative. His sputum only shows a few gram positives, positive rods, positive cocci, and negative rods. IMAGING DATA: Chest x-ray shows his lungs fully expand to the chest wall. Costophrenic angle show some slight blunting. He has flat diaphragms. There is no change in the mediastinum from yesterday. Trachea is midline. There is no subcutaneous emphysema. IMPRESSION: 1. Poorly differentiated squamous cell carcinoma affecting the trachea and both mainstem bronchi and upper lobes. 2. Superior vena cava syndrome. 3. Massive mediastinal lymphadenopathy. 4. Hypercalcemia. 5. Renal failure. 6. Underlying chronic obstructive pulmonary disease. PLAN AND DISCUSSION: I really do not think he is infected even though is lactic acid is slightly up. I would recommend turning back his IV. I will continue his chest tubes as he has put out too much to pull them. He is going for radiation therapy again tomorrow with medical oncology consult. The difficulty with squamous cell carcinoma is that it is not as radiosensitive as small cell and it may be more difficult to get his SVC syndrome under control.
[2021-01-29] MEDS: SENNA 8.6 MG TAB (SENOKOT) PO SCH (21:43)
--- NOTE | 2021-01-29 23:01 | IPN ---
PROGRESS NOTE DATE: 01/29/2021 SUBJECTIVE: Patient was seen and examined at the bedside today morning. He has persistent hyperkalemia. He also reported worsening upper extremity edema because of the IV fluid hydration. Tumor lysis syndrome labs that were ordered today morning are within the normal range. Patient had worsening hyperkalemia today morning. OBJECTIVE: Vital signs: Temperature is 97.4 degrees Fahrenheit, blood pressure 118/64, pulse is 84, respiratory rate of 20, saturating 97% on nasal cannula at 2 liters. Intake and output: Urine output recorded is 1 liter yesterday, 800 mL by the time I saw him in the morning. Weight in the bed scale is 69.7 kg. PHYSICAL EXAMINATION: General: Patient is awake, alert, oriented times three, laying in bed, no apparent distress. Head and neck exam: Extraocular muscles intact. Pupils equally round and reactive to light. Neck veins are engorged. Cardiovascular: S1, S2, regular rate. 2+ edema of the bilateral upper extremities and no edema of the bilateral lower extremities. Respiratory: Mildly decreased breath sounds at the bases, otherwise no active rales or rhonchi. Patient has clinical signs and symptoms of superior vena cava (SVC) syndrome. Abdomen: Soft, positive bowel sounds, nontender. Musculoskeletal: No clubbing or cyanosis. Edema of the bilateral upper extremities as mentioned above. Central nervous system (BUSINESS PROCESS EXPERT): No focal deficits. Power is 5/5 in all extremities. LABORATORY REVIEW: CBC showed WBC 23.3, hemoglobin is 10.5, platelets are 520. BMP showed sodium 135, potassium 5.7, chloride 103, bicarbonate 26, BUN 39, creatinine is 1.5, uric acid is 5.9, calcium is 11.4, albumin 2.7. CURRENT INPATIENT MEDICATIONS: Patient's medications were all reviewed by myself. He was given a dose of Lasix 20 mg IV times one dose. He continues to be on normal saline at 100 mL/hour. He continues to be on IV cefepime and vancomycin. Patient was started on calcitonin 300 units subcutaneous every 12 hours and he was also given a dose of Xgeva 120 mg subcutaneous times one dose. He continues to be on IV Solu-Medrol and a dose of Kayexalate 30 grams by mouth times one dose was given today morning. ASSESSMENT AND PLAN: 1. Acute renal failure. Patient is responding to the IV fluid hydration. Creatinine is slightly better at 1.5 today. Continue saline. 2. Worsening upper extremity edema. It is secondary to a combination of superior vena cava (SVC) syndrome and IV fluid hydration. Patient was given a dose of IV Lasix and he is diuresing well with that. 3. Hyperkalemia. It is secondary to acute renal failure. He was given a dose of Kayexalate and diuresis would also help improve his potassium levels. 4. Hypercalcemia of malignancy. Continue IV fluid hydration. Calcitonin was started as mentioned above and he was also given a dose Xgeva. 5. Right-sided pleural effusion with malignancy. Patient is being seen by cardiothoracic (CT) surgery. He has a right-sided chest tube. 6. Non-small cell lung cancer with superior vena cava (SVC) syndrome. Patient has been started on radiation therapy. Oncology will see the patient on Saturday. 7. Leukocytosis and healthcare-associated pneumonia. Patient is on vancomycin and cefepime.
[2021-01-30] VITALS (10 sets, daily range): BP systolic 119–156; BP diastolic 84–97; O2SAT 96–100
[2021-01-30] MEDS: CEFEPIME HCL 1 GM in D5W MINI-BAG PLUS 50 ML IV SCH ×3 (05:00→21:03)
[2021-01-30 05:37] LABS: BASO % 0.1 % (0.0-1.0); EOS # 0.1 10^3/uL (0.0-0.5); EOS % 0.2 % (0.0-3.0); HEMATOCRIT 33.8 % (42.0-52.0); HEMOGLOBIN 10.7 g/dl (13.5-17.5); LYMPH # 0.2 10^3/uL (1.5-5.0); LYMPH % 1.1 % (24.0-44.0); MEAN CORPUSCULAR HEMOGLOBIN 28.1 pg (27.0-33.0); MEAN CORPUSCULAR HGB CONC 31.7 g/dl (32.0-36.5); MEAN CORPUSCULAR VOLUME 88.7 fl (80.0-96.0); MONO # 0.6 10^3/uL (0.0-0.8); MONO % 2.9 % (2.0-8.0); NEUTROPHILS # 19.6 10^3/uL (1.5-8.5); NEUTROPHILS % 94.7 % (36.0-66.0); PLATELET COUNT, AUTOMATED 503 10^3/uL (150-450); RED BLOOD COUNT 3.81 10^6/uL (4.30-6.10); WHITE BLOOD COUNT 20.7 10^3/uL (4.0-10.0)
[2021-01-30 05:58] LABS: CALCIUM LEVEL 8.7 MG/DL (8.5-10.1); CREATININE FOR GFR 1.39 MG/DL (0.70-1.30); GLOMERULAR FILTRATION RATE 56.1 (>56); MAGNESIUM LEVEL 2.2 MG/DL (1.8-2.4); POTASSIUM SERUM 4.9 MEQ/L (3.5-5.1)
[2021-01-30] MEDS: HEPARIN SOD (PORCINE) 5000UNITS/ML 1ML VIAL/SYRINGE SQ SCH ×3 (06:34→21:02)
[2021-01-30] MEDS: methylPREDNISolone 40MG 1ML VIAL IV SCH ×3 (06:34→21:02)
[2021-01-30] MEDS: ADVAIR HFA 230/21MCG INHALER INH SCH ×2 (07:18→20:10)
[2021-01-30] MEDS: ALBUTEROL SULFATE 2.5 MG/0.5 ML INH NEB SOLN INH SCH ×4 (07:18→20:00)
[2021-01-30 07:43] LABS: URIC ACID 5.5 MG/DL (3.5-7.2)
--- NOTE | 2021-01-30 08:18 | REP ---
INDICATION: pleural effusion COMPARISON: 01/29/2021 TECHNIQUE: PA and lateral. FINDINGS: Right chest tube in stable position. Bilateral pleural based opacities including blunting of the costophrenic angles remains essentially unchanged and suggests small residual pleural effusions and associated passive atelectasis. No obvious pneumothorax. Mediastinum and cardiac silhouette stable and within normal limits. Skeletal structures intact. IMPRESSION: No significant change from prior examination. Small residual pleural effusions and basilar atelectasis again suspected. <Electronically signed by Neo Campbell > 01/30/21 [id number]
--- NOTE | 2021-01-30 08:29 | IPNPDOC ---
Text Note Date of Service The patient was seen on 01/30/21. NOTE Subjective: Patient is a 56 year old Male with a PMHx significant for COPD and PVD s/p stent placement, tobacco use (60+ pack year smoking history), who presented to [facility] ER due to worsening SOB, development of facial and upper extremity (right greater than left) swelling, orthopnea, and hoarseness for the past 4 months. Recently. Patient was found to have mediastinal lymphadenopathy and was transferred to [facility] for further workup. "Of note, Pt initially presented to [place] ED three weeks ago due to acute on chronic shortness of breath, intermittent sharp chest pains, and generalized body aches. He was found to have hypercalcemia (13.4) and a CTA that showed extensive mediastinal lymphadenopathy, 2 mm nodule left upper lobe, and a 5 cm peritracheal shivani mass but no pulmonary embolism. He was subsequently transferred to [facility] for further workup of malignancy. Further workup included a CT head that showed enhancement in the right temporal, right parietal and left frontal lobe concerning for metastatic disease. His UPEP/SPEP were unremarkable. CT abdomen showed retroperitoneal nodes/renal masses which they recommended to be followed up as an outpatient IR procedure (CT-guided biopsy). Patient was given IV fluids and IV Lasix for hypercalcemia as well as albuterol/DuoNeb/Spiriva/Mucinex in addition to 5 day course of steroids (prednisone 40 mg) for his COPD symptoms. He was discharged from the hospital with short course of Lasix and prednisone and inhalers. Patient then presented to [facility] on 01/24/[address] Sinha for these persistent symptoms as mentioned above, who has scheduled him for a endobronchial ultrasound with biopsy on 01/30/21 for what sounds like a clinical superior vena cava syndrome presentation, which at this point may be 2/2 to small cell lung ca vs. lymphoma. He was discharged with prednisone and home oxygen (2 L). A referral was also made to Dr. Miller (radiation oncology) who recommends Palliative radiation therapy, status post EBUS with biopsy per Dr. Sinha on 01/30/21." Patient was sent to the emergency room for a large sided effusion for drainage before radiation. Patient was urgently taken to the OR for drainage. A bronchoscopy was completed for tissue diagnosis and patient was subsequently taken for radiation on the same day. Patient was admitted to the hospital service for further evaluation, treatment. Patient was seen and examined at the bedside. Patient appears to be very frustrated and didn't want to talk much. Reported that he felt frustrated about being in the hospital and that he just wanted to leave. Patient reports that he has not experience any nausea, vomiting, chest pain, denies any abdominal pain or leg swelling. Objective: Vitals (See below) General: Patient is lying in bed, appears frustrated is awake, alert and oriented 3 HEENT: NC, AT, facial and neck swelling noted CVS: +S1S2 Lungs: There is fair air entry bilaterally, diffuse wheezing appreciated bilaterally. No rhonchi, crackles Abdomen: Remains soft without distention or tenderness Extremities: Lower extremities are without edema but bilateral upper extremities still reveal significant edema Assessment and plan: R pleural effusion - likely 2/2 malignancy - Patient had initially reported improvement of his breathing is saturating well on nasal cannula 2 L - s/p Drainage and chest tube placement with Dr. Baez (01/27) - c/w Mucinex - c/w incentive spirometry / acapella - Dr. aBez on consult; will continue to follow and manage chest tube Malignancy - 2/2 likely NSCLC - Bronchoscopy biopsy: Unofficial NSCLC - Radiation therapy on 01/27; next session today - Dr. Brooke, Radiation oncology on consultation; appreciate their input - Will consult Oncology today SVC syndrome - Received radiation on 01/27; Next scheduled for 01/30 - c/w Solumedrol - Radiation oncology (Dr. Miller) consultation - May have to consider IR stent placement if patient remains symptomatic Leukocytosis possibly 2/2 HCAP, possibly 2/2 post-obstructive PNA - Hemodynamically stable and afebrile - Blood cultures 01/27: Negative at 48 hours - Pleural fluid inconsistent with infection - c/w Vancomycin and Cefepime (Day #4) Hypercalcemia - likely 2/2 malignancy - Improving - PTH low - Will hold fluids (re: edema) - c/w Calcitonin - s/p Denosumab - Nephrology on consultation; appreciate their input s/p Hyperkalemia - s/p Kayexalate Acute renal failure - possibly 2/2 pre-renal etiology - Cr continues to improve - Will hold nephrotoxic medications / diuretics (Furosemide) - c/w IV fluids - Nephrology on consultation; appreciate their input s/p Lactic acidosis - possibly 2/2 malignancy, less likely 2/2 infectious etiology Thrombocytosis - likely 2/2 reactive etiology - Will continue to trend Normocytic anemia - Hg remains stable - No evidence of bleeding Acute COPD exacerbation - Mild wheezing appreciated - c/w Inhaled therapy as ordered - c/w Solumedrol PVD - c/w ASA 81 HTN - BP well controlled - c/w Amlodipine with hold parameters - Will hold Furosemide (re: HAWK) GERD - c/w Protonix DVT Prophylaxis - c/w Heparin Disposition: - Awaiting clinical improvement VS,[place], I+O VS, [place], I+O Laboratory Tests 01/30/21 05:23 Vital Signs Date Time Temp Pulse Resp B/P (MAP) Pulse Ox O2 Delivery O2 Flow Rate FiO2 01/30/21 07:17 96.8 76 19 119/88 (98) 97 Nasal Cannula 2.0 I&O- Last 24 Hours up to 6 AM 01/30/21 05:59 Intake Total 2760 ml Output Total 3905 ml Balance -1145 ml LILO CUENCA MD Jan 30, 2021 08:29
[2021-01-30] MEDS: amLODIPine 5 MG TAB PO SCH (08:57)
[2021-01-30] MEDS: ASPIRIN 81MG ENTERIC TABLET PO SCH (08:57)
[2021-01-30] MEDS: DOCUSATE SODIUM 100MG CAPSULE PO SCH ×2 (08:58→21:02)
[2021-01-30] MEDS: PANTOPRAZOLE 40MG TAB (PROTONIX) PO SCH (08:58)
[2021-01-30] MEDS: MOM 30ML SUSPENSION UDC PO SCH (08:58)
[2021-01-30] MEDS: guaiFENesin ER 600 MG TAB PO SCH ×2 (08:58→21:02)
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
[2021-01-30] MEDS: VANCOMYCIN HCL 750 MG, VIAL MATE ADAPTER 1 EACH in NS 250 ML IV SCH ×2 (10:41→22:45)
[2021-01-30] MEDS: PERCOCET 5MG/325MG TAB PO PRN ×2 (14:10→18:49)
--- NOTE | 2021-01-30 17:15 | IPN ---
PROGRESS NOTE DATE: 01/30/2021 SUBJECTIVE: Mr. Reeves is going to radiation therapy today. He is breathing well. Pain is being well-controlled with oral pain medications. OBJECTIVE: VITAL SIGNS: Show a T-max of 97.6 with a heart rate that ranges between 76 and 82 in sinus rhythm. Respiratory rate of 17 to 19 without the use of accessory muscles who is 96% to 99% saturated on 2 liters nasal cannula and whose blood pressure is ranging between 128/84 to 119/88. INTAKE AND OUTPUT: Over the past 24 hours has been recorded as 4440 in and 3945 out for a positivity of 95 mL. He has put 570 mL out the chest tube. He weighs 72.1 kg today compared to 69.7 kg yesterday. He has had 2200 in p.o. intake and 1800 in IV intake. RESPIRATORY: He has end-expiratory wheezing throughout both lungs. He also has coarse inspiratory rales and rhonchi, which do not clear with coughing. Percussion notes are full to the diaphragm. CARDIAC: Without murmurs, clicks, gallops, or rubs. I cannot feel his PMI. S1 and S2 are normal. ABDOMEN: Soft and nontender. Bowel sounds are positive. There is no hepatomegaly. No CVA tenderness. EXTREMITIES: Show no pretibial edema, but 2 to 3+ right and left arm edema and neck and head edema. SKIN: Warm, dry, and perfused without cyanosis or mottling, including that of the nail beds and knees. He does have a bluish tint to his head compared to his lower extremities. MOUTH: Shows the mucous membranes to be pink and moist. Lips and commisures are without lesions and no thrush. EYES: Show his pupils equal and reactive. Extraocular movements are intact. Sclerae nonicteric. NECK: Supple. I did not detect jugular venous distention. He has dilated vein over his chest. Trachea is midline and there is no subcutaneous emphysema. NEUROLOGIC: Shows II through XII intact. Normal gross motor, gross sensation intact. Gait is not tested. PSYCHIATRIC: Shows him to be awake, alert, and oriented x3 with appropriate mood and affect and conversational. LABORATORY DATA: White count today is 20.7 slightly down from 23.3 yesterday. Hemoglobin and hematocrit 10.7 and 33.8 essentially unchanged from yesterday with a platelet count of 503,000. Differential shows 94% neutrophils, 1% lymphocytes, and 2% monocytes. There are no immature forms and no toxic granulations. His electrolytes are essentially normal with a BUN and creatinine of 35 and 1.29, which is improved from 39 and 1.59 yesterday. Glucose is 113 with a calcium of 8.7. IMAGING DATA: His chest x-ray shows the lungs fully expand to the chest wall. There is some blunting of both costophrenic angles. Chest tube is in good place posteriorly. I do not see any changes in mediastinal lymphadenopathy. IMPRESSION: 1. 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 2. Massive mediastinal lymphadenopathy. 3. Superior vena cava syndrome. 4. Tobacco abuse. 5. Underlying chronic obstructive pulmonary disease (COPD). 6. Renal insufficiency, improving. 7. History of peripheral vascular disease. PLAN AND DISCUSSION: He is still putting out too much out the chest tube. I would recommend that we cut back on his fluids. He is going for radiation therapy today and for medical oncology also today. He does understand the seriousness of his disease.
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
[2021-01-30] MEDS: SENNA 8.6 MG TAB (SENOKOT) PO SCH (21:02)
--- NOTE | 2021-01-30 23:40 | IPN ---
PROGRESS NOTE DATE: 01/30/2021 SUBJECTIVE: The patient's labs and images in the last 24 hours events were noted. When I went to see the patient in the room, he had already gone for radiation therapy for his lung cancer and SVC syndrome. OBJECTIVE: Vital signs: Temperature is 97.3 degrees Fahrenheit, blood pressure 156/97, pulse is 83, respiratory rate of 17, saturating 98% on nasal canula at 2 liters. Intake and output: Urine output recorded as 3.3 liters yesterday, 2.6 liters so far today. Since overnight, chest tube drainage is 595 ml. Weight in the bed scale is 71.2 kg. PHYSICAL EXAMINATION: Physical examination was not done because the patient was gone to radiation therapy. LABORATORY REVIEW: Complete blood count (CBC) showed a WBC 20.7, hemoglobin 10.7, platelets are 503. Basic metabolic panel (BMP) showed sodium 135, potassium 4.9, chloride 102, bicarbonate 28, BUN 35, creatinine is 1.3, it was 1.5 yesterday. Lactic acid is 1.6. Calcium has improved to 8.7. Ionized calcium is 4.8. Mag is 2.2. Vancomycin level is 21. CURRENT INPATIENT MEDICATIONS: The patient's medications are all reviewed by myself. He was getting IV fluid hydration, which has been stopped. He continues to be on IV cefepime. Vancomycin dose has been decreased to 750 mg IV q 12 hours. Calcitonin was stopped by myself. ASSESSMENT AND PLAN: 1. Acute renal failure. Renal function continues to improve. IV fluid hydration has been stopped. Continue to monitor renal function. 2. Upper extremity edema and superior vena cava (SVC) syndrome. The patient was given a dose of IV Lasix. He made a significant amount of urine. I was unable to evaluate his upper extremity edema today. 3. Hyperkalemia. It has improved with diuresis and the use of Kayexalate. 4. Hypercalcemic of malignancy. Calcitonin has been stopped. The patient was given a dose of Xgeva. Calcium level is within normal range now. 5. Right-sided pleural effusion with malignancy. Management of chest tube is as per CT surgery. Small dose of diuretic was used yesterday. 6. Non-small cell lung cancer with superior vena cava syndrome. The patient has gone for radiation therapy. The rest of the management is as per oncology service. 7. Leukocytosis, healthcare associated pneumonia with non-small cell lung cancer. Continue vancomycin and cefepime.
[2021-01-31] VITALS (15 sets, daily range): BP systolic 113–180; BP diastolic 76–120; O2SAT 96–99
[2021-01-31] MEDS: **hydrALAZINE HCL** 25 MG TAB PO SCH ×3 (01:11→16:45)
[2021-01-31] MEDS: HEPARIN SOD (PORCINE) 5000UNITS/ML 1ML VIAL/SYRINGE SQ SCH ×2 (05:42→16:29)
[2021-01-31] MEDS: methylPREDNISolone 40MG 1ML VIAL IV SCH ×3 (05:42→20:57)
[2021-01-31] MEDS: CEFEPIME HCL 1 GM in D5W MINI-BAG PLUS 50 ML IV SCH ×2 (05:42→16:28)
[2021-01-31 05:56] LABS: BASO % 0.1 % (0.0-1.0); EOS % 0.1 % (0.0-3.0); HEMATOCRIT 34.6 % (42.0-52.0); HEMOGLOBIN 10.7 g/dl (13.5-17.5); LYMPH # 0.2 10^3/uL (1.5-5.0); LYMPH % 0.9 % (24.0-44.0); MEAN CORPUSCULAR HEMOGLOBIN 27.7 pg (27.0-33.0); MEAN CORPUSCULAR HGB CONC 30.9 g/dl (32.0-36.5); MEAN CORPUSCULAR VOLUME 89.6 fl (80.0-96.0); MONO # 0.7 10^3/uL (0.0-0.8); MONO % 3.4 % (2.0-8.0); NEUTROPHILS # 19.9 10^3/uL (1.5-8.5); NEUTROPHILS % 93.9 % (36.0-66.0); PLATELET COUNT, AUTOMATED 480 10^3/uL (150-450); RED BLOOD COUNT 3.86 10^6/uL (4.30-6.10); WHITE BLOOD COUNT 21.2 10^3/uL (4.0-10.0)
[2021-01-31 06:09] LABS: BLOOD UREA NITROGEN 33 MG/DL (7-18); CALCIUM LEVEL 8.2 MG/DL (8.5-10.1); CARBON DIOXIDE LEVEL 26 MEQ/L (21-32); CHLORIDE LEVEL 101 MEQ/L (98-107); CREATININE FOR GFR 1.24 MG/DL (0.70-1.30); GLOMERULAR FILTRATION RATE > 60.0 (>56); GLUCOSE, FASTING 112 MG/DL (70-100); MAGNESIUM LEVEL 2.4 MG/DL (1.8-2.4); POTASSIUM SERUM 4.5 MEQ/L (3.5-5.1); SODIUM LEVEL 133 MEQ/L (136-145)
[2021-01-31] MEDS: ADVAIR HFA 230/21MCG INHALER INH SCH ×2 (07:10→19:42)
[2021-01-31] MEDS: ALBUTEROL SULFATE 2.5 MG/0.5 ML INH NEB SOLN INH SCH ×4 (07:10→19:44)
--- NOTE | 2021-01-31 08:51 | REP ---
INDICATION: pleural effusion. COMPARISON: Comparison chest x-ray January 30, 2021. January 29, 2021 film is also reviewed. TECHNIQUE: Two views.. FINDINGS: There is blunting of the pleural angles Bilaterally indicating small quantities of pleural fluid. An air-fluid level is seen in the right base adjacent to the right pleural chest tube indicating small hydropneumothorax on the right. There is a little more air visible today than yesterday. No new infiltrate is seen. Heart is not enlarged. There is a pleural line overlying the spine on the lateral film unchanged correlating with the right base hydropneumothorax. No new infiltrate. IMPRESSION: Small bilateral pleural effusions. Small hydropneumothorax on the right with right chest tube in place.. <Electronically signed by Franki Torres > 01/31/21 [id number]
[2021-01-31] MEDS: MOM 30ML SUSPENSION UDC PO SCH (09:09)
[2021-01-31] MEDS: ASPIRIN 81MG ENTERIC TABLET PO SCH (09:09)
[2021-01-31] MEDS: guaiFENesin ER 600 MG TAB PO SCH ×2 (09:11→20:42)
[2021-01-31] MEDS: PANTOPRAZOLE 40MG TAB (PROTONIX) PO SCH (09:11)
[2021-01-31] MEDS: DOCUSATE SODIUM 100MG CAPSULE PO SCH ×2 (09:11→20:42)
[2021-01-31] MEDS: amLODIPine 5 MG TAB PO SCH (09:11)
[2021-01-31] MEDS ORDERED: FUROSEMIDE 20MG/2ML VIAL (J1940) IV ONE (11:50)
[2021-01-31] MEDS: VANCOMYCIN HCL 750 MG, VIAL MATE ADAPTER 1 EACH in NS 250 ML IV SCH (11:52)
[2021-01-31] MEDS ORDERED: LIDOCAINE 1% MDV 20ML VIAL As Ordered ONE (13:56)
--- NOTE | 2021-01-31 15:09 | IPNPDOC ---
Date Seen The patient was seen on 01/31/21. Progress Note SUBJECTIVE: Patient is a 56 year old Male with a PMHx significant for COPD and PVD s/p stent placement, tobacco use (60+ pack year smoking history), who presented to [facility] ER due to worsening SOB, development of facial and upper extremity (right greater than left) swelling, orthopnea, and hoarseness for the past 4 months. Recently. Patient was found to have mediastinal lymphadenopathy and was transferred to [facility] for further workup. "Of note, Pt initially presented to [place] ED three weeks ago due to acute on chronic shortness of breath, intermittent sharp chest pains, and generalized body aches. He was found to have hypercalcemia (13.4) and a CTA that showed extensive mediastinal lymphadenopathy, 2 mm nodule left upper lobe, and a 5 cm peritracheal shivani mass but no pulmonary embolism. He was subsequently transferred to [facility] for further workup of malignancy. Further workup included a CT head that showed enhancement in the right temporal, right parietal and left frontal lobe concerning for metastatic disease. His UPEP/SPEP were unremarkable. CT abdomen showed retroperitoneal nodes/renal masses which they recommended to be followed up as an outpatient IR procedure (CT-guided biopsy). Patient was given IV fluids and IV Lasix for hypercalcemia as well as al buterol/DuoNeb/Spiriva/Mucinex in addition to 5 day course of steroids (prednisone 40 mg) for his COPD symptoms. He was discharged from the hospital with short course of Lasix and prednisone and inhalers. Patient then presented to [facility]monology on 01/24/[address] Sinha for these persistent symptoms as mentioned above, who has scheduled him for a endobronchial ultrasound with biopsy on 01/30/21 for what sounds like a clinical superior vena cava syndrome presentation, which at this point may be 2/2 to small cell lung ca vs. lymphoma. He was discharged with prednisone and home oxygen (2 L). A referral was also made to Dr. Miller (radiation oncology) who recommends Palliative radiation therapy, status post EBUS with biopsy per Dr. Sinha on 01/30/21." Patient was seen and examined at the bedside. He received radiation therapy this morning. Chest tube put out 500 cc overnight. Patient seems frustrated with his illness, but is tolerating his therapy well. Denies fevers, chills, n/v/d, chest pain, palpitations, SOB. C/o R arm swelling. OBJECTIVE PHYSICAL EXAMINATION: VITAL SIGNS: please see below General: lying in bed, alert and awake. Oriented x 3. HEENT: PERRLA, EOMI, sclerae clear Neck: distended neck veins, flushed Respiratory: fair air entry b/l. Moderate wheezing bilaterally. Chest tube in place. CVS: RRR, normal S1, S2, no murmurs Abdo: soft, no masses, no hepatosplenomegaly, BS+, no rebound tenderness Extremities: bilateral arm swelling R > L. Psych: calm, cooperative, AAO x 3 LABORATORY DATA, IMAGING STUDIES, MICROBIOLOGY: Please see below. DVT prophylaxis ordered?: heparin ASSESSMENT AND PLAN: R pleural effusion - likely 2/2 malignancy - Patient had initially reported improvement of his breathing is saturating well on nasal cannula 2 L - s/p Drainage and chest tube placement with Dr. Baez (01/27) - c/w Mucinex - c/w incentive spirometry / acapella - Dr. Baez on consult; will continue to follow and manage chest tube Malignancy - 2/2 likely NSCLC - Bronchoscopy biopsy: Unofficial NSCLC - Radiation therapy on 01/27; next session today - Dr. Brooke, Radiation oncology on consultation; appreciate their input - Oncology consulted, seen by Dr. 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 Miller) consultation - May have to consider IR stent placement if patient remains symptomatic - d/w Dr. Calero, c/w chest tube for now Leukocytosis possibly 2/2 HCAP, possibly 2/2 post-obstructive PNA - Hemodynamically stable and afebrile - Blood cultures 01/27: Negative at 48 hours - Pleural fluid inconsistent with infection - c/w Vancomycin and Cefepime (Day #5) Hypercalcemia - likely 2/2 malignancy - Improving - PTH low - Will hold fluids (re: edema) - c/w Calcitonin - s/p Denosumab - Nephrology on consultation; appreciate their input s/p Hyperkalemia - s/p Kayexalate Acute renal failure - possibly 2/2 pre-renal etiology - Cr continues to improve - Will hold nephrotoxic medications / diuretics (Furosemide) - c/w IV fluids - Nephrology on consultation; appreciate their input s/p Lactic acidosis - possibly 2/2 malignancy, less likely 2/2 infectious etiology Thrombocytosis - likely 2/2 reactive etiology - Will continue to trend Normocytic anemia - Hg remains stable - No evidence of bleeding Acute COPD exacerbation - Mild wheezing appreciated - c/w Inhaled therapy as ordered - c/w Solumedrol PVD - c/w ASA 81 HTN - BP well controlled - c/w Amlodipine with hold parameters - Will hold Furosemide (re: HAWK) GERD - c/w Protonix DVT Prophylaxis - c/w Heparin Disposition: - Awaiting clinical improvement VS, I&O, 24H, Fishbone Vital Signs/I&O Vital Signs Date Time Temp Pulse Resp B/P (MAP) Pulse Ox O2 Delivery O2 Flow Rate FiO2 01/31/21 12:00 96.8 80 18 139/82 (101) 98 Nasal Cannula 2.0 I&O- Last 24 Hours up to 6 AM 01/31/21 05:59 Intake Total 2750 ml Output Total 2995 ml Balance -245 ml Laboratory Data 24H LABS Laboratory Tests 2 01/31/21 05:03: Immature Granulocyte % (Auto) 1.6, Neutrophils (%) (Auto) 93.9H, Lymphocytes (%) (Auto) 0.9L, Monocytes (%) (Auto) 3.4, Eosinophils (%) (Auto) 0.1, Basophils (%) (Auto) 0.1, Neutrophils # (Auto) 19.9H, Lymphocytes # (Auto) 0.2L, Monocytes # (Auto) 0.7, Eosinophils # (Auto) 0.0, Basophils # (Auto) 0.0, Nucleated Red Blood Cells % (auto) 0.0, Anion Gap 6L, Glomerular Filtration Rate > 60.0, Calcium Level 8.2L, Magnesium Level 2.4 01/31/21 10:15: Vancomycin Level Trough 17.7 CBC/BMP Laboratory Tests 01/31/21 05:03 Microbiology Microbiology 01/27/21 Gram Stain - Final, Complete 01/27/21 Sputum Culture - Final, Complete Streptococcus Pneumoniae Staphylococcus Aureus 01/27/21 Acid Fast Stain, Received Pending 01/27/21 Mycobacterial Culture, Received Pending 01/27/21 Fungal Smear, Received Pending 01/27/21 Fungal Culture, Received Pending 01/27/21 Gram Stain - Final, Complete 01/27/21 Body Fluid Culture - Final, Complete 01/27/21 Anaerobic Culture - Final, Complete 01/27/21 Blood Culture - Preliminary, Resulted No Growth after 72 hours. All specime... 01/27/21 Blood Culture - Preliminary, Resulted No Growth after 72 hours. All specime... IVA YOUNGER MD Jan 31, 2021 15:09
--- NOTE | 2021-01-31 15:31 | IPN ---
PROGRESS NOTE DATE: 01/31/2021 Mr. Reeves is a bit sleepy today and worn out. He went for radiation therapy this morning. I do note that his right arm is much more swollen than his left arm, even more than it was yesterday. His vital signs show a maximum temperature of 97.4 with a heart rate that ranges between 75-83 in a sinus rhythm, respiratory rate of 18-24 without the use of accessory muscles, who is 96%-99% saturated on 2 liters nasal cannula and whose blood pressure is 113/76 to 180/120. His intake and output for the past 24 hours has been recorded as 2425 in and 3195 out, for a negativity of 770 mL. He has put 595 mL out of the chest tube. His weight today is 73 kg compared to 71.2 kg yesterday. PHYSICAL EXAMINATION: He has equal breath sounds on either side. He has diffuse rhonchi and expiratory wheezing. Percussion notes are full to the diaphragm. Cardiac exam is without murmurs, clicks, gallops, or rubs. I cannot feel his point of maximal impulse (PMI). S1 and S2 are normal. Abdomen is soft and nontender. Bowel sounds are positive. There is no hepatomegaly. No costovertebral angle (CVA) tenderness. Extremities show no pretibial edema but 4+ edema on the right upper extremity and 3+ on the left on the upper extremity. He has distended neck veins and chest veins. I cannot actually detect deep venous thrombosis, probably because of the swelling of his neck and head. His skin is warm, dry, and perfused without cyanosis or mottling, including that of the nailbeds and knees. History head, neck, upper extremities do have a blue tinge to them. Mouth shows his mucous membranes to be pink and moist. Lips and commissures without lesions. No thrush. Eyes show his pupils to be equal and reactive. Extraocular motion intact. Sclerae anicteric. Neurologic shows II-XII intact. Normal gross motor, gross sensation intact. Gait is not tested. Psychiatric shows him to be awake, alert, and oriented times three with appropriate mood and affect and conversational. His white count is up to 21.2 with a hemoglobin and hematocrit of 10.7 and 34.6. Platelet count is 480 and stable. Differential shows 93% neutrophils, 1% lymphocytes, and 3% monocytes. There are no immature forms or toxic granulations. His chemistries today show a sodium 133 with remainder of electrolytes normal with a BUN and creatinine of 33 and 1.24 with his creatinine normalizing. Glucose is 112 with a calcium of 8.2 and a magnesium of 2.4. His vancomycin trough is 17.7. Microbiology shows Streptococcus pneumoniae and Staphylococcus aureus in his sputum. Staphylococcus is sensitivity to everything except penicillin; however, the streptococcus is resistant to everything except Avalox, Zyvox, and vancomycin. He is now on vancomycin and cefepime as antibiotics. His chest x-ray shows the lung fully expanded to the chest wall. The air below the diaphragm is gone. He has blunting of both costophrenic angles but only slightly. I do not see a difference in the mediastinal mass yet. IMPRESSION: 1. Poorly differentiated squamous cell carcinoma, widely metastatic throughout the tracheobronchial tree, including the right and left. 2. Brain metastases from same. 3. Massive mediastina lymphadenopathy. 4. Superior vena cava syndrome. 5. Tobacco abuse. 6. Underlying chronic obstructive pulmonary disease (COPD). 7. Renal insufficiency, improving. 8. History of peripheral vascular disease. 9. Increased swelling of the left upper extremity. PLAN AND DISCUSSION: I am concerned that the left upper extremity is more swollen, and this may represent a thrombosis. That would not be surprising, considering that there is obstruction to flow from his mediastinal lymphadenopathy and that he has diffusely metastatic carcinoma, which makes him hypercoagulable. I therefore have asked for an upper extremity ultrasound of the right arm. He has lost four IVs, and I have also asked for a peripherally inserted central catheter (PICC) line to be placed. He is still putting too much out of the chest tube to remove it. Again, I think that the chest tube output is secondary to systemic venous hypertension on the chest wall from his superior vena caval syndrome. Molecular studies are pending on his tumor. [facility]
--- NOTE | 2021-01-31 15:51 | REP ---
INDICATION: Poor Access. COMPARISON: None. TECHNIQUE: The procedure was performed under the direct supervision of Dr. Torres. The risks and benefits of the procedure were explained to the patient and informed consent was obtained. The left basilic vein was localized using ultrasound guidance. The skin was prepped and draped in a sterile fashion. 2% lidocaine was used as a local anesthetic. Using ultrasound guidance the basilic vein was cannulated and a 0.018 guidewire was inserted and advanced to the SVC using fluoroscopic guidance. The needle was removed and a 5.5 Bulgarian dilator and peel-away sheath was inserted over the guide wire. A 5.5 Bulgarian dual lumen catheter was cut to length of 47 cm. The dilator was removed and the catheter was inserted over the guide wire with the tip ending at the junction of the brachiocephalic and superior vena cava.. The peel-away sheath was removed and the catheter was flushed with heparinized saline as per Hospital protocol. The catheter was affixed to the skin and a sterile dressing was applied. The patient tolerated the procedure well and there were no immediate complications. 2 minutes of fluoro time was utilized for this procedure. FINDINGS: None IMPRESSION: PICC line insertion with the tip of the catheter at the junction of the brachiocephalic and superior vena cava. <Electronically signed by Phillip Arias > 01/31/21 1548 <Electronically signed by Franki Torres > 01/31/21 1547
--- NOTE | 2021-01-31 16:06 | REP ---
INDICATION: SWELLING OF BOTH ARMS, R/O DVTs. COMPARISON: None. TECHNIQUE: Bilateral upper extremity duplex venous ultrasound. FINDINGS: Limited visualization of the left upper extremity veins below the axillary vein was achieved due to recently applied dressing for freshly installed PICC line. The left axillary subclavian and internal jugular vein are patent without evidence of thrombus on two-dimensional and color Doppler. On the right there is extensive nonocclusive thrombosis of right subclavian and proximal axillary vein and the proximal right internal jugular vein. The right cephalic vein could not be seen. Basilic and brachial veins on the right are clear. IMPRESSION: Study is positive for nonocclusive venous thrombosis involving the right internal jugular and right subclavian vein. <Electronically signed by Franki Torres > 01/31/21 1732
[2021-01-31] MEDS ORDERED: SODIUM CHLORIDE 0.9% INJ 10 ML SYR IV PRN (16:40)
[2021-01-31] MEDS: PERCOCET 5MG/325MG TAB PO PRN (17:19)
--- NOTE | 2021-01-31 17:59 | REP ---
INDICATION: chest pain, tachypnea. COMPARISON: Comparison chest x-ray is from 07/07 9 a.m. on this date, January 31, 2021. TECHNIQUE: Portable upright AP chest radiograph. 5:49 p.m. film. FINDINGS: Monitoring electrodes are seen. A right-sided chest tube remains in place. There is slight blunting of the left pleural angle. No infiltrate is seen. The patient is rotated somewhat to the left. A left-sided PICC line is noted in place. There is no visible pneumothorax on either side.. IMPRESSION: Left-sided PICC line. Slight blunting of the pleural angles persists. No new infiltrate. Right chest tube in place.. <Electronically signed by Franki Torres > 01/31/21 [id number]
[2021-01-31 18:18] LABS: BASO % 0.1 % (0.0-1.0); EOS # 0.4 10^3/uL (0.0-0.5); EOS % 1.8 % (0.0-3.0); HEMATOCRIT 33.6 % (42.0-52.0); HEMOGLOBIN 10.9 g/dl (13.5-17.5); LYMPH # 0.2 10^3/uL (1.5-5.0); MEAN CORPUSCULAR HEMOGLOBIN 28.7 pg (27.0-33.0); MEAN CORPUSCULAR HGB CONC 32.4 g/dl (32.0-36.5); MEAN CORPUSCULAR VOLUME 88.4 fl (80.0-96.0); MONO % 4.6 % (2.0-8.0); NEUTROPHILS # 18.9 10^3/uL (1.5-8.5); NEUTROPHILS % 91.3 % (36.0-66.0); PLATELET COUNT, AUTOMATED 446 10^3/uL (150-450); WHITE BLOOD COUNT 20.7 10^3/uL (4.0-10.0)
[2021-01-31] MEDS: SODIUM CHLORIDE 0.9% INJ 10 ML SYR IV SCH ×2 (18:46→18:49)
[2021-01-31 18:47] LABS: BLOOD UREA NITROGEN 31 MG/DL (7-18); CALCIUM LEVEL 8.2 MG/DL (8.5-10.1); CARBON DIOXIDE LEVEL 30 MEQ/L (21-32); CHLORIDE LEVEL 100 MEQ/L (98-107); CREATININE FOR GFR 1.13 MG/DL (0.70-1.30); GLOMERULAR FILTRATION RATE > 60.0 (>56); GLUCOSE, FASTING 106 MG/DL (70-100); MAGNESIUM LEVEL 2.5 MG/DL (1.8-2.4); POTASSIUM SERUM 4.9 MEQ/L (3.5-5.1); SODIUM LEVEL 134 MEQ/L (136-145); TROPONIN I < 0.02 NG/ML (< 0.10)
[2021-01-31] MEDS: SENNA 8.6 MG TAB (SENOKOT) PO SCH (20:42)
[2021-01-31] MEDS: ENOXAPARIN 80MG/0.8ML SYRINGE (J1650 PER 10MG) SC SCH (20:43)
--- NOTE | 2021-01-31 23:03 | IPN ---
NEPHROLOGY PROGRESS NOTE DATE: 01/31/2021 SUBJECTIVE: The patient was seen and examined at the bedside today morning. He was getting ready to go for his radiation therapy when I saw him. He still complains of persistent bilateral upper extremity edema and edema of the neck. Renal function is stable and continues to improve. Hypercalcemia has resolved and he is actually hypocalcemic on the labs today. OBJECTIVE: VITAL SIGNS: Temperature is 97.2 degrees Fahrenheit, blood pressure is 116/84, pulse is 80, respiratory rate of 34, saturating 100% on nasal cannula at 2 liters. INTAKE AND OUTPUT: Urine output recorded as 2.6 liters yesterday; 1,700 mL so far today since overnight. Chest tube discharged is 585 mL. Weight in the bed scale is 73 kg. PHYSICAL EXAMINATION: GENERAL APPEARANCE: The patient is awake, alert, oriented x3, sitting up in the wheelchair. HEAD AND NECK: Pupils are equal, round and reactive to light. Neck veins are engorged and distended. CARDIOVASCULAR: S1, S2, regular rate. EXTREMITIES: 3+ edema of the bilateral upper extremities and no edema of the bilateral lower extremities. RESPIRATORY: Mild end expiratory crackles and expiratory wheezing bilaterally in the lungs. ABDOMEN: Soft, obese, positive bowel sounds. MUSCULOSKELETAL: No clubbing, no cyanosis in the lower extremities. Significant edema in the bilateral lower extremities and SBC syndrome was noted. CHIEF PROCUREMENT OFFICER: No focal deficits. LAB REVIEW: CBC showed a WBC of 20.7, hemoglobin 10.9, platelet count 446. BMP showed sodium 134, potassium 4.9, chloride 100, bicarbonate is 30, BUN 31, creatinine is 1.1. Calcium 8.2, magnesium is 2.5. IMAGING: A chest x-ray was done which showed left sided PICC line, no infiltrates, a right sided chest tube in place. CURRENT INPATIENT MEDICATIONS: The patient's medications were all reviewed by myself. He continues to be on IV Cefepime and Vancomycin. He was given another dose of Lasix 20 mg IV times one dose by myself. He continues to be on IV Solu-Medrol 40 mg q. 8 hourly. I am going to decrease the Solu-Medrol dose to q. 12 hourly. ASSESSMENT AND PLAN: 1. Acute renal failure the patient's renal function continues to improve. Creatinine is trending down. He is not requiring any more fluid hydration. 2. 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 He is still symptomatic. Further management is as per CT Surgery recommendations. 3. Hypercalcemia of malignancy - it has resolved after administration of Xgeva. 4. Right sided pleural effusion with malignancy - The patient has a chest tube. 5. 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 He was also seen by Hematology and Oncology. Chemotherapy is as per Hematology recommendations. 6. Persistent leukocytosis and healthcare associated pneumonia The patient is on Cefepime and Vancomycin. IV steroids are being decreased.
[2021-02-01] VITALS (9 sets, daily range): BP systolic 130–152; BP diastolic 56–98; O2SAT 93–98
[2021-02-01] MEDS: VANCOMYCIN HCL 750 MG, VIAL MATE ADAPTER 1 EACH in NS 250 ML IV SCH ×3 (00:32→22:57)
[2021-02-01] MEDS: CEFEPIME HCL 1 GM in D5W MINI-BAG PLUS 50 ML IV SCH ×4 (00:32→22:08)
[2021-02-01] MEDS: **hydrALAZINE HCL** 25 MG TAB PO SCH ×4 (00:45→23:45)
[2021-02-01 06:07] LABS: BASO % 0.1 % (0.0-1.0); EOS # 0.1 10^3/uL (0.0-0.5); EOS % 0.4 % (0.0-3.0); HEMOGLOBIN 11.2 g/dl (13.5-17.5); LYMPH # 0.2 10^3/uL (1.5-5.0); LYMPH % 1.1 % (24.0-44.0); MEAN CORPUSCULAR HEMOGLOBIN 28.4 pg (27.0-33.0); MEAN CORPUSCULAR VOLUME 88.8 fl (80.0-96.0); MONO # 0.9 10^3/uL (0.0-0.8); MONO % 4.5 % (2.0-8.0); NEUTROPHILS % 92.4 % (36.0-66.0); PLATELET COUNT, AUTOMATED 455 10^3/uL (150-450); RED BLOOD COUNT 3.94 10^6/uL (4.30-6.10); WHITE BLOOD COUNT 20.6 10^3/uL (4.0-10.0)
[2021-02-01] MEDS: SODIUM CHLORIDE 0.9% INJ 10 ML SYR IV SCH ×3 (06:15→18:00)
[2021-02-01 06:26] LABS: BLOOD UREA NITROGEN 29 MG/DL (7-18); CALCIUM LEVEL 7.8 MG/DL (8.5-10.1); CARBON DIOXIDE LEVEL 26 MEQ/L (21-32); CHLORIDE LEVEL 100 MEQ/L (98-107); CREATININE FOR GFR 1.07 MG/DL (0.70-1.30); GLOMERULAR FILTRATION RATE > 60.0 (>56); GLUCOSE, FASTING 98 MG/DL (70-100); MAGNESIUM LEVEL 2.4 MG/DL (1.8-2.4); POTASSIUM SERUM 4.7 MEQ/L (3.5-5.1); SODIUM LEVEL 132 MEQ/L (136-145)
[2021-02-01] MEDS: ADVAIR HFA 230/21MCG INHALER INH SCH ×2 (07:15→20:00)
[2021-02-01] MEDS: ALBUTEROL SULFATE 2.5 MG/0.5 ML INH NEB SOLN INH SCH ×4 (07:16→20:00)
--- NOTE | 2021-02-01 08:23 | REP ---
INDICATION: pleural effusion COMPARISON: 01/31/2021 TECHNIQUE: PA and lateral. FINDINGS: Left PICC line with tip in the SVC unchanged. Right-sided chest tube in stable position. Small right pleural effusion and basilar atelectasis again noted which appears relatively stable. There is a new small/moderate left pleural effusion with associated basilar atelectasis. No pneumothorax. Mediastinum and cardiac silhouette stable. IMPRESSION: 1. Stable changes at the right lung base including small pleural effusion and atelectasis. 2. New small to moderate left pleural effusion and atelectasis. <Electronically signed by Neo Campbell > 02/01/21 0847
[2021-02-01] MEDS: MOM 30ML SUSPENSION UDC PO SCH (08:47)
[2021-02-01] MEDS: ENOXAPARIN 80MG/0.8ML SYRINGE (J1650 PER 10MG) SC SCH ×2 (08:47→20:49)
[2021-02-01] MEDS: amLODIPine 5 MG TAB PO SCH (08:47)
[2021-02-01] MEDS: DOCUSATE SODIUM 100MG CAPSULE PO SCH ×2 (08:47→20:48)
[2021-02-01] MEDS: guaiFENesin ER 600 MG TAB PO SCH ×2 (08:48→20:48)
[2021-02-01] MEDS: ASPIRIN 81MG ENTERIC TABLET PO SCH (08:48)
[2021-02-01] MEDS: PANTOPRAZOLE 40MG TAB (PROTONIX) PO SCH (08:48)
[2021-02-01] MEDS: methylPREDNISolone 40MG 1ML VIAL IV SCH ×2 (10:00→20:49)
--- NOTE | 2021-02-01 11:25 | IPNPDOC ---
Date Seen The patient was seen on 02/01/21. Progress Note Patient is a 56 year old Male with a PMHx significant for COPD and PVD s/p stent placement, tobacco use (60+ pack year smoking history), who presented to [facility] ER due to worsening SOB, development of facial and upper extremity (right greater than left) swelling, orthopnea, and hoarseness for the past 4 months. Recently. Patient was found to have mediastinal lymphadenopathy and was transferred to [facility] for further workup. "Of note, Pt initially presented to [place] ED three weeks ago due to acute on chronic shortness of breath, intermittent sharp chest pains, and generalized body aches. He was found to have hypercalcemia (13.4) and a CTA that showed extensive mediastinal lymphadenopathy, 2 mm nodule left upper lobe, and a 5 cm peritracheal shivani mass but no pulmonary embolism. He was subsequently transferred to [facility] for further workup of malignancy. Further workup i ncluded a CT head that showed enhancement in the right temporal, right parietal and left frontal lobe concerning for metastatic disease. His UPEP/SPEP were unremarkable. CT abdomen showed retroperitoneal nodes/renal masses which they recommended to be followed up as an outpatient IR procedure (CT-guided biopsy). Patient was given IV fluids and IV Lasix for hypercalcemia as well as albuterol/DuoNeb/Spiriva/Mucinex in addition to 5 day course of steroids (prednisone 40 mg) for his COPD symptoms. He was discharged from the hospital with short course of Lasix and prednisone and inhalers. Patient then presented to [facility] on 01/24/[address] Sinha for these persistent symptoms as mentioned above, who has scheduled him for a endobronchial ultrasound with biopsy on 01/30/21 for what sounds like a clinical superior vena cava syndrome presentation, which at this point may be 2/2 to small cell lung ca vs. lymphoma. He was discharged with prednisone and home oxygen (2 L). A re ferral was also made to Dr. Miller (radiation oncology) who recommends Palliative radiation therapy, status post EBUS with biopsy per Dr. Sinha on 01/30/21." Patient was seen and examined at the bedside. Chest and back discomfort improved. Afebrile. Denies chest pain, palpitations, SOB. Noted that L arm PICC line was dislodged, per RN, was caught on bedding. Chest tube putting out large quantities. OBJECTIVE PHYSICAL EXAMINATION: VITAL SIGNS: please see below General: lying in bed, alert and awake. Oriented x 3. HEENT: PERRLA, EOMI, sclerae clear Neck: distended neck veins, flushed Respiratory: fair air entry b/l. Moderate wheezing bilaterally. Chest tube in place. CVS: RRR, normal S1, S2, no murmurs Abdo: soft, no masses, no hepatosplenomegaly, BS+, no rebound tenderness Extremities: bilateral arm swelling R > L. Psych: calm, cooperative, AAO x 3 LABORATORY DATA, IMAGING STUDIES, MICROBIOLOGY: Please see below. CXR (02/01/21): IMPRESSION: 1. Stable changes at the right lung base including small pleural effusion and atelectasis. 2. New small to moderate left pleural effusion and atelectasis. Venous Duplex Bilateral Upper Extremities (01/31/21) Study is positive for nonocclusive venous thrombosis involving the right internal jugular and right subclavian vein DVT prophylaxis ordered?: heparin ASSESSMENT AND PLAN: R pleural effusion - likely 2/2 malignancy - Patient had initially reported improvement of his breathing is saturating well on nasal cannula 2 L - s/p Drainage and chest tube placement with Dr. Baez (01/27) - c/w Mucinex - c/w incentive spirometry / acapella - Dr. Baez on consult; will continue to follow and manage chest tube Malignancy - 2/2 likely NSCLC - Bronchoscopy biopsy: Unofficial NSCLC - Radiation therapy on 01/27; next session today - Dr. Brooke, Radiation oncology on consultation; appreciate their input - Oncology consulted, seen by Dr. 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 Miller) consultation - May have to consider IR stent placement if patient remains symptomatic - d/w Dr. Calero, c/w chest tube for now Leukocytosis possibly 2/2 HCAP, possibly 2/2 post-obstructive PNA - Hemodynamically stable and afebrile - Blood cultures 01/27: Negative at 48 hours - Pleural fluid inconsistent with infection - c/w Vancomycin and Cefepime (Day #6) RUE DVT - seen on duplex on 01/31/21 - right internal jugular and right subclavian vein - started on therapeutic lovenox 1 mg/kg q12h - highly prothrombotic due to active malignancy, SVC obstruction Hypercalcemia - likely 2/2 malignancy - Improving - PTH low - Will hold fluids (re: edema) - c/w Calcitonin - s/p Denosumab - Nephrology on consultation; appreciate their input s/p Hyperkalemia - s/p Kayexalate Acute renal failure - possibly 2/2 pre-renal etiology - Cr continues to improve - Will hold nephrotoxic medications / diuretics (Furosemide) - c/w IV fluids - Nephrology on consultation; appreciate their input s/p Lactic acidosis - possibly 2/2 malignancy, less likely 2/2 infectious etiology Thrombocytosis - likely 2/2 reactive etiology - Will continue to trend - improving slowly Normocytic anemia - Hg remains stable - No evidence of bleeding Acute COPD exacerbation - Mild wheezing appreciated - c/w Inhaled therapy as ordered - c/w Solumedrol PVD - c/w ASA 81 HTN - BP well controlled - c/w Amlodipine with hold parameters - Will hold Furosemide (re: HAWK) GERD - c/w Protonix DVT Prophylaxis - c/w Heparin Disposition: - Awaiting clinical improvement VS, I&O, 24H, Fishbone Vital Signs/I&O Vital Signs Date Time Temp Pulse Resp B/P (MAP) Pulse Ox O2 Delivery O2 Flow Rate FiO2 02/01/21 08:47 87 152/98 02/01/21 07:28 97.1 18 97 Nasal Cannula 2.0 I&O- Last 24 Hours up to 6 AM 02/01/21 06:00 Intake Total 1730 ml Output Total 2735 ml Balance -1005 ml Laboratory Data 24H LABS Laboratory Tests 2 01/31/21 18:05: Immature Granulocyte % (Auto) 1.2, Neutrophils (%) (Auto) 91.3H, Lymphocytes (%) (Auto) 1.0L, Monocytes (%) (Auto) 4.6, Eosinophils (%) (Auto) 1.8, Basophils (%) (Auto) 0.1, Neutrophils # (Auto) 18.9H, Lymphocytes # (Auto) 0.2L, Monocytes # (Auto) 1.0H, Eosinophils # (Auto) 0.4, Basophils # (Auto) 0.0, Nucleated Red Blood Cells % (auto) 0.0, Anion Gap 4L, Glomerular Filtration Rate > 60.0, Lactic Acid Level 1.6, Calcium Level 8.2L, Magnesium Level 2.5H, Troponin I < 0.02 02/01/21 05:41: Immature Granulocyte % (Auto) 1.5, Neutrophils (%) (Auto) 92.4H, Lymphocytes (%) (Auto) 1.1L, Monocytes (%) (Auto) 4.5, Eosinophils (%) (Auto) 0.4, Basophils (%) (Auto) 0.1, Neutrophils # (Auto) 19.0H, Lymphocytes # (Auto) 0.2L, Monocytes # (Auto) 0.9H, Eosinophils # (Auto) 0.1, Basophils # (Auto) 0.0, Nucleated Red Blood Cells % (auto) 0.0, Anion Gap 6L, Glomerular Filtration Rate > 60.0, Calcium Level 7.8L, Magnesium Level 2.4 02/01/21 10:24: CBC/BMP Laboratory Tests 01/31/21 18:05 02/01/21 05:41 Microbiology Microbiology 01/27/21 Gram Stain - Final, Complete 01/27/21 Sputum Culture - Final, Complete Streptococcus Pneumoniae Staphylococcus Aureus 01/27/21 Acid Fast Stain, Received Pending 01/27/21 Mycobacterial Culture, Received Pending 01/27/21 Fungal Smear, Received Pending 01/27/21 Fungal Culture, Received Pending 01/27/21 Gram Stain - Final, Complete 01/27/21 Body Fluid Culture - Final, Complete 01/27/21 Anaerobic Culture - Final, Complete 01/27/21 Blood Culture - Preliminary, Resulted No Growth after 72 hours. All specime... 01/27/21 Blood Culture - Preliminary, Resulted No Growth after 72 hours. All specime... IVA YOUNGER MD Feb 01, 2021 11:25
--- NOTE | 2021-02-01 12:28 | IPN ---
PROGRESS NOTE DATE: 02/01/2021 Mr. Reeves is utterly miserable today. He is all swollen up, and he is quite dejected. He had some chest pain or discomfort last night. I obtained an upper extremity ultrasound, and he indeed has a deep venous thrombosis (DVT) in his right upper extremity. He has been placed on Lovenox. In my discussion with the hospitalist yesterday, I did not object to putting him on a Xa inhibitor. I am not concerned about him bleeding at the chest tube site. His vital signs show a maximum temperature of 97.1 with a heart rate that ranges between 77-87 in a sinus rhythm, respiratory rate of 18-19 without the use of accessory muscles, who is 93%-100% saturated on 2 liters nasal cannula, and whose blood pressure is ranging between 152/98 to 148/94. His intake and output has been recorded as 1935 in and 2655 out, for a negativity of 720 mL. He has put out 735 mL from the chest tube. There is no air leak. His pathology is still pending. PHYSICAL EXAMINATION: He has equal breath sounds on either side. Percussion notes are full to the diaphragm. I hear end-expiratory wheezing. Cardiac exam is without murmurs, clicks, gallops, or rubs. I cannot feel his point of maximal impulse (PMI). S1 and S2 are normal. Abdomen is soft and nontender. Bowel sounds are positive. There is no hepatomegaly. No costovertebral angle (CVA) tenderness. Extremities show no pretibial edema, but he has significant and worsening upper extremity edema with the right greater than the left. He has a bluish tinge to his arms and his head. Skin is warm, dry, and perfused. He has, again, the blue cyanotic tinge to his upper extremities and head with his head being swollen. Neck is supple. There is no jugular venous distention that I can tell through the swelling of his neck. Trachea is midline. There is no subcutaneous emphysema. Mouth shows the mucous membranes to be pink and moist. Lips and commissures without lesions. No thrush. Eyes show his pupils to be equal and reactive. Extraocular motion intact. Sclerae anicteric. Neurologic shows II-XII intact. Normal gross motor, gross sensation intact. Gait is not tested. Psychiatric shows him to be awake, alert, and oriented times three with appropriate mood and affect and conversational. His white count today is 20.6 with a hemoglobin and hematocrit of 11.2 and 35.0 and a platelet count of 455 and stable. Differential shows 92% neutrophils, 1% lymphocytes, 4% monocytes. There are no immature forms or toxic granulations. His electrolytes show a sodium of 132 with a normal potassium of 4.7 and a BUN and creatinine of 29 and 1.07. Glucose is 98 with a calcium of 7.8 and a phosphorus of 2.4. His chest x-ray shows his lung fully expanded to the chest wall. There is some blunting of the costophrenic angles. Chest tube is in good place. I see no difference in the mediastinum. IMPRESSION: 1. Poorly differentiated squamous cell carcinoma, widely metastatic throughout the tracheobronchial tree, including right and left. 2. Brain metastases with the same. 3. Massive mediastinal lymphadenopathy. 4. Superior vena cava syndrome. 5. Tobacco abuse. 6. Chronic obstructive pulmonary disease (COPD). 7. Renal insufficiency, improved. 8. History of peripheral vascular disease. 9. Increased left upper extremity thrombosis. PLAN AND DISCUSSION: He is asking not to be transported with a mask, as it makes him uncomfortable, and he has difficulty breathing, and I consented to such. In order to relieve him of Lovenox injections, again, I have no objection to him being placed on oral anticoagulation. His chest tube is till pouring out, and I am just hoping that the radiation therapy will start shrinking this tumor. Hopefully the pain he had yesterday is an indication of that. It may very well be time for a hospice discussion, as this is widely metastatic, and everything we do is just going to be palliative in any case.
[2021-02-01] MEDS ORDERED: LIDOCAINE 1% MDV 20ML VIAL As Ordered ONE (14:31)
--- NOTE | 2021-02-01 17:35 | REP ---
PROCEDURE NAME: MIDLINE INSERTION W/ SITERITE CLINICAL INFORMATION: PICC fell out on 01/31/21. COMPARISON: None. PROCEDURE DESCRIPTION: The procedure was performed by JAREK Modoy, under the direct supervision of Dr. Torres. The risks and benefits of the procedure were explained to the patient and an informed consent was obtained both verbally and written. Directly prior to the start of the procedure a formal time-out was completed in the procedure room. The left lateral brachial vein was localized using ultrasound guidance. The skin was prepped and draped in sterile fashion. Three mL of 1% lidocaine 10 mg/mL was used as a local anesthetic. Using ultrasound guidance the left lateral brachial vein was cannulated, and a 0.018 guidewire was inserted. The needle was removed and a 5.5 Czech dilator and peel-away sheath was inserted over the guidewire. A 5.5 Czech dual lumen catheter was cut to a length of 8 cm. The dilator was removed and the catheter was inserted over the guidewire. The peel-away sheath was removed and the catheter was flushed with heparinized saline as per hospital protocol. The catheter was affixed to the skin and a sterile dressing was applied. The patient tolerated the procedure well and there were no immediate complications. CONCLUSION: Mid line insertion into the left lateral brachial vein. <Electronically signed by Meg Lara > 02/01/21 1602 <Electronically signed by Franki Torres > 02/01/21 0463
[2021-02-01] MEDS: CALCIUM/VITAMIN D 500 MG TAB PO SCH (19:35)
[2021-02-01] MEDS: SENNA 8.6 MG TAB (SENOKOT) PO SCH (20:48)
--- NOTE | 2021-02-01 21:57 | ECGEPIP ---
[facility] Test Date: 2021-01-31 Pat Name: COLIN THOMSON Department: Room: [place] [address] Gender: Male Telephone Diaphragm Assembler: YONI : 1965 Requested By: IVA YOUNGER Order Number: [id number] Reading MD: Ori Landa Measurements Intervals [place] Rate: 78 P: 65 DE: 154 QRS: 40 QRSD: 94 T: 59 QT: 366 QTc: 417 Interpretive Statements Normal sinus rhythm Low voltage QRS Nonspecific T wave abnormality Electronically Signed on 02-01-2021 21:56:49 EDT by Ori Landa
--- NOTE | 2021-02-01 23:25 | IPN ---
NEPHROLOGY PROGRESS NOTE DATE: 02/01/2021 SUBJECTIVE: Patient was seen and examined at the bedside today morning. He is afebrile, hemodynamically stable. Renal function is stable. He complains of persistent bilateral upper extremity edema. He is getting palliative radiation therapy for squamous cell lung cancer. OBJECTIVE: VITAL SIGNS: Temperature 97.1 degrees Fahrenheit, blood pressure 142/60, pulse 86, respiratory rate 19, sating 96% on nasal cannula at 3 liters. INTAKE AND OUTPUT: Urine output recorded as 1.9 liters yesterday and 1 liter so far today since overnight. Weight in the bed scale is 71.5 kg. PHYSICAL EXAMINATION: GENERAL: Patient is awake, alert, oriented x3, sitting up in bed in no apparent distress. HEAD AND NECK: Extraocular muscles intact. Pupils equally round and reactive to light. Mucous membranes are moist. Neck is supple. Significantly engorged neck veins. RESPIRATORY: Chest is clear to auscultation bilaterally. Bilateral equal air entry. Mild expiratory wheezing in the upper lobes. CARDIOVASCULAR: S1, S2, regular rate. 3+ edema of the bilateral upper extremities and no edema of the bilateral lower extremities. ABDOMEN: Soft, positive bowel sounds nontender. No organomegaly. MUSCULOSKELETAL: No clubbing or cyanosis. Pulses are 2+. MARKETING PRODUCTION SPECIALIST: No focal deficit. Power is 5/5 in all extremities. LABORATORY REVIEW: CBC showed WBC 20.6, hemoglobin 11.2, platelets 455,000. BMP showed sodium 132, potassium 4.7, chloride 100, bicarb 26, BUN 29, creatinine 1. Calcium 7.8, magnesium 2.4. IMAGING: Chest x-ray was done, which showed stable changes in the right lung base including small pleural effusion and atelectasis. New small to moderate left pleural effusion. CURRENT INPATIENT MEDICATIONS: Patient's medications were all reviewed by myself. The patient has been started on Calcium plus Vitamin D 500 mg p.o. daily. He continues to be on Cefepime and Vancomycin. ASSESSMENT AND PLAN: 1. Acute renal failure: Renal failure has resolved. Patient has a good urine output. 2. Superior vena cava syndrome: Patient is getting palliative radiation therapy. He still has upper extremity edema. He can get p.r.n. Lasix injections, however, it is not going to significantly improve his edema because it is obstructive in nature. 3. Hypocalcemia: Patient was initially given Xgeva for hypercalcemia of malignancy, however, the calcium levels are low now. He is being started on oral calcium tablets. 4. Right-sided pleural effusion and malignancy: Patient has a right-sided chest tube. He is on antibiotics. The rest of the management is as per CT surgery. 5. Squamous cell cancer of the lung: Patient has widely metastatic cancer, currently getting palliative radiation therapy. Rest of the management is as per HEM/ONC. 6. Healthcare associated pneumonia and leukocytosis: Patient is on Vancomycin and Cefepime. DISPOSITION: Patient's renal function is stable. His electrolytes are within the acceptable range at this time. He is getting palliative treatment for his metastatic lung cancer. Nephrology service is going to sign off at this moment. Please call nephrology service for any help in the management of this patient during this hospitalization.
[2021-02-01] MEDS: PERCOCET 5MG/325MG TAB PO PRN (23:57)
[2021-02-02] VITALS: BP 138/72; O2SAT 97
[2021-02-02] MEDS: SODIUM CHLORIDE 0.9% INJ 10 ML SYR IV PRN ×3 (00:13→21:34)
[2021-02-02 04:00] VITALS: BP 114/79; O2SAT 97
[2021-02-02] MEDS: SODIUM CHLORIDE 0.9% INJ 10 ML SYR IV SCH ×3 (05:50→18:49)
[2021-02-02] MEDS: CEFEPIME HCL 1 GM in D5W MINI-BAG PLUS 50 ML IV SCH ×2 (06:06→15:51)
[2021-02-02 06:09] LABS: BASO % 0.2 % (0.0-1.0); EOS # 0.3 10^3/uL (0.0-0.5); EOS % 1.4 % (0.0-3.0); HEMATOCRIT 34.8 % (42.0-52.0); LYMPH # 0.1 10^3/uL (1.5-5.0); LYMPH % 0.7 % (24.0-44.0); MEAN CORPUSCULAR HEMOGLOBIN 27.8 pg (27.0-33.0); MEAN CORPUSCULAR HGB CONC 31.6 g/dl (32.0-36.5); MEAN CORPUSCULAR VOLUME 88.1 fl (80.0-96.0); MONO # 0.5 10^3/uL (0.0-0.8); NEUTROPHILS # 16.7 10^3/uL (1.5-8.5); NEUTROPHILS % 93.6 % (36.0-66.0); PLATELET COUNT, AUTOMATED 449 10^3/uL (150-450); RED BLOOD COUNT 3.95 10^6/uL (4.30-6.10); WHITE BLOOD COUNT 17.9 10^3/uL (4.0-10.0)
[2021-02-02 06:31] LABS: BLOOD UREA NITROGEN 30 MG/DL (7-18); CALCIUM LEVEL 8.5 MG/DL (8.5-10.1); CARBON DIOXIDE LEVEL 28 MEQ/L (21-32); CHLORIDE LEVEL 99 MEQ/L (98-107); CREATININE FOR GFR 1.14 MG/DL (0.70-1.30); GLOMERULAR FILTRATION RATE > 60.0 (>56); GLUCOSE, FASTING 101 MG/DL (70-100); MAGNESIUM LEVEL 2.5 MG/DL (1.8-2.4); SODIUM LEVEL 132 MEQ/L (136-145)
[2021-02-02 07:28] VITALS: BP 128/96
[2021-02-02] MEDS: ALBUTEROL SULFATE 2.5 MG/0.5 ML INH NEB SOLN INH SCH ×4 (08:00→19:45)
[2021-02-02] MEDS: ADVAIR HFA 230/21MCG INHALER INH SCH ×2 (08:06→19:45)
--- NOTE | 2021-02-02 08:12 | REP ---
INDICATION: pleural effusion. COMPARISON: 02/01/2021 TECHNIQUE: Upright PA and lateral chest. FINDINGS: The bilateral pleural effusions are unchanged. The right thoracotomy tube is unchanged. There is no left thoracotomy tube. This is unchanged. The right hilus is elevated. This could be from atelectasis in the right upper lobe. There is a focal nonspecific density just above the right hilus which could represent atelectasis or neoplasm. The lung diana are otherwise clear. Cardiac size is normal. Skeletal structures are unremarkable. IMPRESSION: The bilateral pleural effusions are unchanged. The right hilus is elevated. This is unchanged from a prior study of 01/08/2021 and may be secondary to right upper lobe atelectasis. There is a focal nonspecific density in the right suprahilar area which could represent atelectasis or neoplasm. <Electronically signed by Nabil Knapp > 02/02/21 0808
[2021-02-02] MEDS: **hydrALAZINE HCL** 25 MG TAB PO SCH ×3 (08:45→23:53)
[2021-02-02] MEDS ORDERED: ISOVUE-370 76% 100ML VIAL As Ordered ONE (08:49)
[2021-02-02] MEDS: ASPIRIN 81MG ENTERIC TABLET PO SCH (09:00)
[2021-02-02] MEDS: guaiFENesin ER 600 MG TAB PO SCH ×2 (09:00→21:05)
[2021-02-02] MEDS: PANTOPRAZOLE 40MG TAB (PROTONIX) PO SCH (09:00)
[2021-02-02] MEDS: DOCUSATE SODIUM 100MG CAPSULE PO SCH ×2 (09:00→21:05)
[2021-02-02] MEDS: CALCIUM/VITAMIN D 500 MG TAB PO SCH (09:00)
[2021-02-02] MEDS: amLODIPine 5 MG TAB PO SCH (09:01)
[2021-02-02] MEDS: ENOXAPARIN 80MG/0.8ML SYRINGE (J1650 PER 10MG) SC SCH ×2 (09:01→21:09)
[2021-02-02] MEDS: methylPREDNISolone 40MG 1ML VIAL IV SCH ×2 (09:01→21:06)
[2021-02-02] MEDS: MOM 30ML SUSPENSION UDC PO SCH (09:03)
--- NOTE | 2021-02-02 10:40 | REP ---
INDICATION: status SVC, ?PE COMPARISON: 01/08/2021 TECHNIQUE: Axial contrast enhanced images from the thoracic inlet to the upper abdomen using pulmonary embolus technique with multiplanar re-formations. 75 ml Isovue 370 intravenous contrast material administered without complication. This CT examination was performed using the following dose reduction techniques: Automated exposure control, adjustment of mA and/or kv according to the patient's size, and use of iterative reconstruction technique. FINDINGS: There is no evidence for acute pulmonary embolus. Thoracic aorta appears intact and without aneurysm or dissection. Further evaluation of the mediastinum demonstrates small pericardial effusion there is significant infiltrating mass/adenopathy throughout the mediastinum and possibly invading the superior aspect of the pericardium. There is a moderate to large left pleural effusion. Associated atelectasis/partial collapse to the bilateral lower lobes is appreciated. Scattered rounded lesions best identified in the right upper lobe measure up to approximately 9 mm. A right-sided chest tube is identified along the posterior aspect of the right lower lobe and a very small residual anterior pneumothorax is identified. Underlying chronic emphysematous changes are again noted IMPRESSION: 1. No evidence for pulmonary embolus. 2. Moderate to large left pleural effusion, bilateral lower lobe atelectasis/partial consolidation, and few scattered presumed metastatic nodules up to 9 mm primarily identified in the right upper lobe. 3. Right hemithorax demonstrates posterior chest tube with miniscule residual anterior pneumothorax. 4. Extensive presumed infiltrating adenopathy throughout the mediastinum with suspicion for pericardial invasion. <Electronically signed by Neo Campbell > 02/02/21 1039
--- NOTE | 2021-02-02 11:48 | IPNPDOC ---
Date Seen The patient was seen on 02/02/21. Progress Note Patient is a 56 year old Male with a PMHx significant for COPD and PVD s/p stent placement, tobacco use (60+ pack year smoking history), who presented to [facility] ER due to worsening SOB, development of facial and upper extremity (right greater than left) swelling, orthopnea, and hoarseness for the past 4 months. Recently. Patient was found to have mediastinal lymphadenopathy and was transferred to [facility] for further workup. "Of note, Pt initially presented to [facility] ED three weeks ago due to acute on chronic shortness of breath, intermittent sharp chest pains, and generalized body aches. He was found to have hypercalcemia (13.4) and a CTA that showed extensive mediastinal lymphadenopathy, 2 mm nodule left upper lobe, and a 5 cm peritracheal shivani mass but no pulmonary embolism. He was subsequently transferred to [facility] for further workup of malignancy. Further workup i ncluded a CT head that showed enhancement in the right temporal, right parietal and left frontal lobe concerning for metastatic disease. His UPEP/SPEP were unremarkable. CT abdomen showed retroperitoneal nodes/renal masses which they recommended to be followed up as an outpatient IR procedure (CT-guided biopsy). Patient was given IV fluids and IV Lasix for hypercalcemia as well as albuterol/DuoNeb/Spiriva/Mucinex in addition to 5 day course of steroids (prednisone 40 mg) for his COPD symptoms. He was discharged from the hospital with short course of Lasix and prednisone and inhalers. Patient then presented to [facility] on 01/24/[address] Sinha for these persistent symptoms as mentioned above, who has scheduled him for a endobronchial ultrasound with biopsy on 01/30/21 for what sounds like a clinical superior vena cava syndrome presentation, which at this point may be 2/2 to small cell lung ca vs. lymphoma. He was discharged with prednisone and home oxygen (2 L). A re ferral was also made to Dr. Miller (radiation oncology) who recommends Palliative radiation therapy, status post EBUS with biopsy per Dr. Sinha on 01/30/21." Patient was seen and examined at the bedside. Chest and back discomfort improved. Afebrile. Denies chest pain, palpitations, SOB. Noted that L arm PICC line was dislodged, per RN, was caught on bedding. Chest tube putting out large quantities. OBJECTIVE PHYSICAL EXAMINATION: VITAL SIGNS: please see below General: lying in bed, alert and awake. Oriented x 3. HEENT: PERRLA, EOMI, sclerae clear Neck: distended neck veins, flushed Respiratory: fair air entry b/l. Moderate wheezing bilaterally. Chest tube in place. CVS: RRR, normal S1, S2, no murmurs Abdo: soft, no masses, no hepatosplenomegaly, BS+, no rebound tenderness Extremities: bilateral arm swelling R > L. Psych: calm, cooperative, AAO x 3 LABORATORY DATA, IMAGING STUDIES, MICROBIOLOGY: Please see below. CXR (02/01/21): IMPRESSION: 1. Stable changes at the right lung base including small pleural effusion and atelectasis. 2. New small to moderate left pleural effusion and atelectasis. Venous Duplex Bilateral Upper Extremities (01/31/21) Study is positive for nonocclusive venous thrombosis involving the right internal jugular and right subclavian vein DVT prophylaxis ordered?: heparin ASSESSMENT AND PLAN: R pleural effusion - likely 2/2 malignancy - Patient had initially reported improvement of his breathing is saturating well on nasal cannula 2 L - s/p Drainage and chest tube placement with Dr. Baez (01/27) - c/w Mucinex - c/w incentive spirometry / acapella - Dr. Baez on consult; will continue to follow and manage chest tube Malignancy - 2/2 likely NSCLC - Bronchoscopy biopsy: Unofficial NSCLC - Radiation therapy on 01/27; next session today - Dr. Brooke, Radiation oncology on consultation; appreciate their input - Oncology consulted, seen by Dr. Nascimento - possibility for radiation to brain mets SVC syndrome - Receiving RT - c/w Solumedrol - Radiation oncology (Dr. Miller) consultation - May have to consider IR stent placement if patient remains symptomatic - d/w Dr. Calero, c/w chest tube for now Leukocytosis possibly 2/2 HCAP, possibly 2/2 post-obstructive PNA - Hemodynamically stable and afebrile - Blood cultures 01/27: Negative at 48 hours - sputum + strep pneumo and staph aureus - Pleural fluid inconsistent with infection - c/w Vancomycin and Cefepime (Day #7) RUE DVT - seen on duplex on 3/16/21 - right internal jugular and right subclavian vein - started on therapeutic lovenox 1 mg/kg q12h - highly prothrombotic due to active malignancy, SVC obstruction - would prefer to use lovenox in setting of malignancy for treatment of DVT Hypercalcemia - likely 2/2 malignancy - Improving - PTH low - Will hold fluids (re: edema) - c/w Calcitonin - s/p Denosumab s/p Hyperkalemia - s/p Kayexalate Acute renal failure - possibly 2/2 pre-renal etiology - Cr continues to improve - prn lasix, although no significant improvement in edema is expected - renal function normalized s/p Lactic acidosis - possibly 2/2 malignancy, less likely 2/2 infectious etiology Thrombocytosis - likely 2/2 reactive etiology - Will continue to trend - improving slowly Normocytic anemia - Hg remains stable - No evidence of bleeding Acute COPD exacerbation - Mild wheezing appreciated - c/w Inhaled therapy as ordered - c/w Solumedrol PVD - c/w ASA 81 HTN - BP well controlled - c/w Amlodipine with hold parameters - Will hold Furosemide (re: HAWK) GERD - c/w Protonix DVT Prophylaxis - c/w Heparin Disposition: - Awaiting clinical improvement VS, I&O, 24H, Fishbone Vital Signs/I&O Vital Signs Date Time Temp Pulse Resp B/P (MAP) Pulse Ox O2 Delivery O2 Flow Rate FiO2 02/02/21 09:01 82 128/96 02/02/21 07:28 97.4 18 Nasal Cannula 3.0 02/02/21 04:00 97 I&O- Last 24 Hours up to 6 AM 02/02/21 06:00 Intake Total 1390 ml Output Total 1630 ml Balance -240 ml Laboratory Data 24H LABS Laboratory Tests 2 02/02/21 05:13: Immature Granulocyte % (Auto) 1.1, Neutrophils (%) (Auto) 93.6H, Lymphocytes (%) (Auto) 0.7L, Monocytes (%) (Auto) 3.0, Eosinophils (%) (Auto) 1.4, Basophils (%) (Auto) 0.2, Neutrophils # (Auto) 16.7H, Lymphocytes # (Auto) 0.1L, Monocytes # (Auto) 0.5, Eosinophils # (Auto) 0.3, Basophils # (Auto) 0.0, Nucleated Red Blood Cells % (auto) 0.0, Anion Gap 5L, Glomerular Filtration Rate > 60.0, Calcium Level 8.5, Magnesium Level 2.5H CBC/BMP Laboratory Tests 02/02/21 05:13 Microbiology Microbiology 01/27/21 Gram Stain - Final, Complete 01/27/21 Sputum Culture - Final, Complete Streptococcus Pneumoniae Staphylococcus Aureus 01/27/21 Acid Fast Stain, Received Pending 01/27/21 Mycobacterial Culture, Received Pending 01/27/21 Fungal Smear, Received Pending 01/27/21 Fungal Culture, Received Pending 01/27/21 Gram Stain - Final, Complete 01/27/21 Body Fluid Culture - Final, Complete 01/27/21 Anaerobic Culture - Final, Complete 01/27/21 Blood Culture - Final, Complete NO GROWTH AFTER 5 DAYS 01/27/21 Blood Culture - Final, Complete NO GROWTH AFTER 5 DAYS IVA YOUNGER MD Feb 02, 2021 11:48
[2021-02-02 12:00] VITALS: BP 132/82
[2021-02-02] MEDS: VANCOMYCIN HCL 750 MG, VIAL MATE ADAPTER 1 EACH in NS 250 ML IV SCH (12:16)
[2021-02-02 16:00] VITALS: BP 144/88
--- NOTE | 2021-02-02 16:29 | IPN ---
PROGRESS NOTE DATE: 02/02/2021 Mr. Reeves feels a bit better today. It looks as though his face is a little bit less swollen today as well as his left upper extremity. His right upper extremity still shows a large amount of swelling secondary to his subclavian vein thrombosis. His vital signs show a maximum temperature of 97.4 with a heart rate that ranges between 82-93 in a sinus rhythm, respiratory rate of 18-22 without the use of accessory muscles, who is 97%-100% saturated on 3 liters nasal cannula, and whose blood pressure is ranging between 114/79 to 138/72. His intake and output for the past 24 hours has been recorded as 1750 in and 1625 out, for a positivity of 125 mL. He put out 585 mL from the chest tube yesterday and 305 in the last 18 hours. He weighs 71.4 kg today compared to 71.5 kg yesterday. PHYSICAL EXAMINATION: His lungs show equal breath sounds on either side. Percussion notes are full to the diaphragm. Most of the rhonchi clear with coughing. Cardiac exam is without murmurs, clicks, gallops, or rubs. I cannot feel his point of maximal impulse (PMI). S1 and S2 are normal. Abdomen is soft and nontender. Bowel sounds are positive. There is no hepatomegaly. No costovertebral angle (CVA) tenderness. Extremities show no pretibial edema, no calf tenderness, no differential swelling of the upper extremities. Skin is warm, dry, and perfused without cyanosis or mottling, including that of the nailbeds and knees. Neck is supple. There is no jugular venous distention. No subcutaneous emphysema. Trachea is midline. Mouth shows the mucous membranes to be pink and moist. Lips and commissures without lesions. No thrush. Eyes show his pupils to be equal and reactive. Extraocular motion intact. Sclerae anicteric. Neurologic shows II-XII intact. Normal gross motor, gross sensation intact. Gait is not tested. Psychiatric shows him to be awake, alert, and oriented times three with appropriate mood and affect and conversational. His white count today is 17.9, down from 20.6 yesterday. Hemoglobin and hematocrit 11.0 and 34.8, respectively. Platelet count is 409 and stable. Differential shows 93% neutrophils, 1% lymphocytes, and 3% monocytes. There are no immature forms or toxic granulations. Chemistries today show essentially normal electrolytes except for a marginally low sodium of 132. BUN and creatinine are 30 and 1.04 with a glucose of 101 and a calcium of 8.5. His phosphorus is 2.5. Pathology from the pleural fluid has been reported back as negative. That certainly supports this being a transudative pleural effusion secondary to high chest wall venous pressure secondary to his superior vena cava (SVC). IMPRESSION: 1. 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 2. Brain metastasis. 3. Massive mediastinal lymphadenopathy. 4. Superior vena cava (SVC) syndrome. 5. Tobacco abuse. 6. Chronic obstructive pulmonary disease (COPD). 7. Renal insufficiency, improved. 8. History of peripheral vascular disease. 9. Left upper extremity thrombosis. PLAN AND DISCUSSION: I will obtain a CT scan of his chest today to see if the vena cava is opening up and if the tumor spreading. It certainly clinically seems that his SVC syndrome may be starting to resolve. I will continue his chest tube for the time being.
[2021-02-02 20:00] VITALS: BP 152/91; O2SAT 95
[2021-02-02] MEDS ORDERED: LevoFLOXacin 750 MG TABLET PO SCH (21:00)
[2021-02-02] MEDS: SENNA 8.6 MG TAB (SENOKOT) PO SCH (21:05)
[2021-02-03] VITALS: BP 136/86; O2SAT 95
[2021-02-03] MEDS: PERCOCET 5MG/325MG TAB PO PRN (02:04)
[2021-02-03 04:00] VITALS: BP 135/92; O2SAT 95
[2021-02-03 06:08] LABS: BASO % 0.2 % (0.0-1.0); EOS # 0.1 10^3/uL (0.0-0.5); EOS % 0.7 % (0.0-3.0); HEMATOCRIT 32.8 % (42.0-52.0); HEMOGLOBIN 10.2 g/dl (13.5-17.5); LYMPH # 0.1 10^3/uL (1.5-5.0); LYMPH % 0.5 % (24.0-44.0); MEAN CORPUSCULAR HEMOGLOBIN 27.6 pg (27.0-33.0); MEAN CORPUSCULAR HGB CONC 31.1 g/dl (32.0-36.5); MEAN CORPUSCULAR VOLUME 88.6 fl (80.0-96.0); MONO # 0.5 10^3/uL (0.0-0.8); MONO % 3.1 % (2.0-8.0); NEUTROPHILS % 94.1 % (36.0-66.0); PLATELET COUNT, AUTOMATED 457 10^3/uL (150-450); WHITE BLOOD COUNT 16.9 10^3/uL (4.0-10.0)
[2021-02-03 06:24] LABS: BLOOD UREA NITROGEN 30 MG/DL (7-18); CALCIUM LEVEL 7.9 MG/DL (8.5-10.1); CARBON DIOXIDE LEVEL 28 MEQ/L (21-32); CHLORIDE LEVEL 102 MEQ/L (98-107); CREATININE FOR GFR 1.15 MG/DL (0.70-1.30); GLOMERULAR FILTRATION RATE > 60.0 (>56); GLUCOSE, FASTING 116 MG/DL (70-100); MAGNESIUM LEVEL 2.5 MG/DL (1.8-2.4); POTASSIUM SERUM 4.8 MEQ/L (3.5-5.1); SODIUM LEVEL 133 MEQ/L (136-145)
[2021-02-03] MEDS: SODIUM CHLORIDE 0.9% INJ 10 ML SYR IV SCH (06:25)
[2021-02-03] MEDS: ADVAIR HFA 230/21MCG INHALER INH SCH (07:27)
[2021-02-03] MEDS: ALBUTEROL SULFATE 2.5 MG/0.5 ML INH NEB SOLN INH SCH ×3 (07:28→15:04)
[2021-02-03 08:00] VITALS: BP 150/93
--- NOTE | 2021-02-03 08:05 | REP ---
INDICATION: pleural effusion. COMPARISON: PA and lateral chest dated 02/02/[address] with IV contrast dated 02/02/2021. TECHNIQUE: PA and lateral chest FINDINGS: There is a right thoracotomy tube, unchanged. The right costophrenic angle is effaced. On the comparison CT there is a small right pleural effusion there is no pneumothorax. There is a moderate left pleural effusion. There is no left thoracotomy tube. Upon review the right hilus is not elevated, however, on the comparison CT there is a significant infiltrating mass/adenopathy throughout the mediastinum and into the right suprahilar zone resulting in a mass-like density in the right suprahilar area on plain films. Cardiac size is normal. There is no pneumothorax. IMPRESSION: Bilateral pleural effusions as described. The left pleural effusion is larger. Right thoracotomy tube. No left thoracotomy tube. Right suprahilar mass as discussed likely a portion of the mediastinal infiltrating mass/adenopathy on the comparison CT. <Electronically signed by Nabil Knapp > 02/03/21 0801
[2021-02-03] MEDS: **hydrALAZINE HCL** 25 MG TAB PO SCH (08:45)
[2021-02-03] MEDS: ENOXAPARIN 80MG/0.8ML SYRINGE (J1650 PER 10MG) SC SCH (09:10)
[2021-02-03] MEDS: DOCUSATE SODIUM 100MG CAPSULE PO SCH (09:10)
[2021-02-03] MEDS: CALCIUM/VITAMIN D 500 MG TAB PO SCH (09:10)
[2021-02-03] MEDS: guaiFENesin ER 600 MG TAB PO SCH (09:10)
[2021-02-03] MEDS: PANTOPRAZOLE 40MG TAB (PROTONIX) PO SCH (09:10)
[2021-02-03] MEDS: ASPIRIN 81MG ENTERIC TABLET PO SCH (09:10)
[2021-02-03] MEDS: MOM 30ML SUSPENSION UDC PO SCH (09:10)
[2021-02-03 09:11] VITALS: BP 150/93
[2021-02-03] MEDS: methylPREDNISolone 40MG 1ML VIAL IV SCH (09:11)
[2021-02-03] MEDS: amLODIPine 5 MG TAB PO SCH (09:11)
[2021-02-03] MEDS ORDERED: HYDR25TA PO (11:16)
[2021-02-03] MEDS ORDERED: LEVO750T13 PO (11:16)
[2021-02-03] MEDS ORDERED: ALBU83IN INH (11:16)
[2021-02-03] MEDS ORDERED: ACET1TAB55 PO (11:16)
[2021-02-03] MEDS ORDERED: PANT40TA29 PO (11:16)
[2021-02-03] MEDS ORDERED: LOVE0.6I2 SC (11:16)
[2021-02-03] MEDS ORDERED: VENTAER INH (11:16)
[2021-02-03] MEDS ORDERED: PERCOCET PO (11:16)
[2021-02-03] MEDS ORDERED: BUDE10.7 INH (11:16)
[2021-02-03] MEDS ORDERED: MUCI600T31 PO (11:16)
[2021-02-03] MEDS ORDERED: DOK1CAP7 PO (11:16)
[2021-02-03] MEDS ORDERED: CALCD50TA PO (11:16)
[2021-02-03] MEDS ORDERED: ADVA230A INH (11:16)
[2021-02-03] MEDS ORDERED: PRED10TA2 PO (11:19)
[2021-02-03 11:48] VITALS: BP 161/111
--- NOTE | 2021-02-03 11:57 | DS.PDOC ---
Discharge Summary General Date of Admission Jan 27, 2021 at 12:49 Date of Discharge 02/03/21 Discharge Summary PROCEDURES PERFORMED DURING STAY: [None]. ADMITTING DIAGNOSES: R Pleural effusion possibly malignant Leukocytosis possible 2/2 postobstructive pneumonia SVC syndrome Hypercalcemia HAWK Lactic acidosis Hx of COPD PVD HTN DISCHARGE DIAGNOSES: R Pleural effusion possibly malignant Leukocytosis possible 2/2 postobstructive pneumonia SVC syndrome Hypercalcemia HAWK Lactic acidosis Hx of COPD PVD HTN R upper extremity DVT Invasive squamous cell carcinoma of lung COMPLICATIONS/CHIEF COMPLAINT: Metastatic Cancer Pleural Effusion. HISTORY OF PRESENT ILLNESS: Patient is a 56 year old Male with a PMHx significant for COPD and PVD s/p stent placement, tobacco use (60+ pack year smoking history), who presented to [facility] ER due to worsening SOB, development of facial and upper extremity (right greater than left) swelling, orthopnea, and hoarseness for the past 4 months. Patient states that he has noticed positional, sharp pain over his anterior chest about 4 months ago, which has occurred daily but intermittently depending on his positioning. There is no association with movement. He also reports progressive worsening of his shortness of breath over this time period and is unable to ambulate greater than 50 feet without feeling short of breath. Patient does not follow with the PCP and the last time he saw a physician was more than 5 years ago. He reports that he has been meaning to establish care with a PCP, but due to COVID, he was unable to do so in a timely manner. Of note, Pt initially presented to [place] ED three weeks ago due to acute on chronic shortness of breath, intermittent sharp chest pains, and generalized body aches. He was found to have hypercalcemia (13.4) and a CTA that showed extensive mediastinal lymphadenopathy, 2 mm nodule left upper lobe, and a 5 cm peritracheal shivani mass but no pulmonary embolism. He was subsequently transferred to [facility] for further workup of malignancy. Further workup included a CT head that showed enhancement in the right temporal, right parietal and left frontal lobe concerning for metastatic disease. His UPEP/SPEP were unremarkable. CT abdomen showed retroperitoneal nodes/renal masses which they recommended to be followed up as an outpatient IR procedure (CT-guided biopsy). Patient was given IV fluids and IV Lasix for hypercalcemia as well as albuterol/DuoNeb/Spiriva/Mucinex in addition to 5 day course of steroids (prednisone 40 mg) for his COPD symptoms. He was discharged from the hospital with short course of Lasix and prednisone and inhalers. Patient then presented to [facility] on 01/24/[address] Sinha for these persistent symptoms as mentioned above, who has scheduled him for a endobronchial ultrasound with biopsy on 01/30/21 for what sounds like a clinical superior vena cava syndrome presentation, which at this point may be 2/2 to small cell lung ca vs. lymphoma. He was discharged with prednisone and home oxygen (2 L). A referral was also made to Dr. Miller (radiation oncology) who recommends Palliative radiation therapy, status post EBUS with biopsy per Dr. Sinha on 01/30/21. HOSPITAL COURSE: R pleural effusion - likely 2/2 malignancy - Patient had initially reported improvement of his breathing is saturating well on nasal cannula 2 L - s/p Drainage and chest tube placement with Dr. Baez (01/27) - c/w Mucinex - c/w incentive spirometry / acapella - Dr. Baez on consult; will continue to follow and manage chest tube Malignancy - 2/2 likely NSCLC - Tracheal tumor biopsies, from 01/30/21: invasive squamous cell carcinoma. - Dr. Brooke, Radiation oncology on consultation; appreciate their input - Daily radiation therapy. Last session inpatient 02/03/21 - to continue daily RT sessions on 02/06/21 - Oncology consulted, seen by Dr. Nascimento - possibility for radiation to brain mets SVC syndrome - Receiving RT - c/w Solumedrol - Radiation oncology (Dr. Miller) consultation. - May have to consider IR stent placement if patient remains symptomatic - d/w Dr. Calero, SVC compression has improved somewhat based on repeat CT chest on 02/02/21. Chest tube was removed on 02/03/21. Cleared for DC. If reaccumulation of pleural effusion, option to place PleurX drain in the future Leukocytosis possibly 2/2 HCAP, possibly 2/2 post-obstructive PNA - Hemodynamically stable and afebrile - Blood cultures 01/27: Negative at 48 hours - sputum + strep pneumo and staph aureus, sensitive to levaquin - Pleural fluid inconsistent with infection - s/p Vancomycin and Cefepime (7 days) - D/w ID Dr. Oneil. Will DC on 10 days of PO levaquin therapy. RUE DVT - seen on duplex on 01/31/21 - right internal jugular and right subclavian vein - started on therapeutic lovenox 1 mg/kg q12h - highly prothrombotic due to active malignancy, SVC obstruction - would prefer to use lovenox in setting of malignancy for treatment of DVT - discharged with lovenox 1 mg/kg q12h. Hypercalcemia - likely 2/2 malignancy - Improving - PTH low - Will hold fluids (re: edema) - s/p Calcitonin - s/p Denosumab - calcium carbonate daily on DC s/p Hyperkalemia - resolved - s/p Kayexalate Acute renal failure - possibly 2/2 pre-renal etiology - Cr continues to improve - prn lasix, although no significant improvement in edema is expected - renal function normalized s/p Lactic acidosis - possibly 2/2 malignancy, less likely 2/2 infectious etiology Thrombocytosis - likely 2/2 reactive etiology - improving slowly Normocytic anemia - Hg remains stable - No evidence of bleeding Acute COPD exacerbation - c/w Inhaled therapy as ordered - s/p IV solumdedrol - 10 day prednisone taper on DC. PVD - c/w ASA 81 HTN - BP well controlled - c/w Amlodipine with hold parameters - Will hold Furosemide (re: HAWK) GERD - c/w Protonix DVT Prophylaxis - c/w Heparin Disposition: - Patient very keen to go home and recuperate with his family. I spoke to his sister Renetta Reeves at ([phone]) and updated her as to plan and answered all questions in detail. Patient to follow up with radiation oncology, medical oncology, pulmonology. Home health referral for Home PT/OT/RN and Aide were placed. Prescription for 4[facility]er[facility] DISCHARGE MEDICATIONS: Please see below. ALLERGIES: Please see below. PHYSICAL EXAMINATION ON DISCHARGE: VITAL SIGNS: please see below General: lying in bed, alert and awake. Oriented x 3. HEENT: PERRLA, EOMI, sclerae clear Neck: distended neck veins, flushed Respiratory: fair air entry b/l. Moderate wheezing bilaterally. Chest tube in place. CVS: RRR, normal S1, S2, no murmurs Abdo: soft, no masses, no hepatosplenomegaly, BS+, no rebound tenderness Extremities: bilateral arm swelling R > L. Psych: calm, cooperative, AAO x 3 LABORATORY DATA: Please see below. IMAGING: CTA chest (02/02/21): 1. No evidence for pulmonary embolus. 2. Moderate to large left pleural effusion, bilateral lower lobe atelectasis/partial consolidation, and few scattered presumed metastatic nodules up to 9 mm primarily identified in the right upper lobe. 3. Right hemithorax demonstrates posterior chest tube with miniscule residual anterior pneumothorax. 4. Extensive presumed infiltrating adenopathy throughout the mediastinum with suspicion for pericardial invasion. IMPRESSION: 1. Stable changes at the right lung base including small pleural effusion and atelectasis. 2. New small to moderate left pleural effusion and atelectasis. CXR (02/02/21): The bilateral pleural effusions are unchanged. The right hilus is elevated. This is unchanged from a prior study of 01/08/2021 and may be secondary to right upper lobe atelectasis. There is a focal nonspecific density in the right suprahilar area which could represent atelectasis or neoplasm. Venous Duplex Bilateral Upper Extremities (01/31/21) Study is positive for nonocclusive venous thrombosis involving the right internal jugular and right subclavian vein CXR (01/27/21): Moderate right lower lobe effusion and underlying airspace disease. PROGNOSIS: palliative ACTIVITY: [As tolerated]. DIET: as tolerated, high protein DISCHARGE PLAN: Patient to follow up with radiation oncology, medical oncology, pulmonology. F/u final cultures from pleural effusion, path and genetic testing for tumor. Home health referral for Home PT/OT/RN and Aide were placed. Prescription for 4[facility].; DISPOSITION: . DISCHARGE INSTRUCTIONS: 1. . ITEMS TO FOLLOWUP ON ON OUTPATIENT: 1. Final pleural fluid cultures 2. Tumor markers/genetic tests 3. Would recommend f/u chest XR in 1 week to monitor for re-accumulation of pleural effusion. DISCHARGE CONDITION: [Stable]. TIME SPENT ON DISCHARGE: 35 minutes Vital Signs/I&Os Vital Signs Date Time Temp Pulse Resp B/P (MAP) Pulse Ox O2 Delivery O2 Flow Rate FiO2 02/03/21 09:11 85 150/93 02/03/21 08:00 97.0 17 99 Nasal Cannula 3.0 I&O- Last 24 Hours up to 6 AM 02/03/21 06:00 Intake Total 815 ml Output Total 1255 ml Balance -440 ml Laboratory Data Labs 24H Laboratory Tests 2 02/03/21 05:19: Immature Granulocyte % (Auto) 1.4, Neutrophils (%) (Auto) 94.1H, Lymphocytes (%) (Auto) 0.5L, Monocytes (%) (Auto) 3.1, Eosinophils (%) (Auto) 0.7, Basophils (%) (Auto) 0.2, Neutrophils # (Auto) 16.0H, Lymphocytes # (Auto) 0.1L, Monocytes # (Auto) 0.5, Eosinophils # (Auto) 0.1, Basophils # (Auto) 0.0, Nucleated Red Blood Cells % (auto) 0.0, Anion Gap 3L, Glomerular Filtration Rate > 60.0, Calcium Level 7.9L, Magnesium Level 2.5H 02/03/21 10:06: Vancomycin Level Trough 14.2 CBC/BMP Laboratory Tests 02/03/21 05:19 Microbiology Microbiology 01/27/21 Gram Stain - Final, Complete 01/27/21 Sputum Culture - Final, Complete Streptococcus Pneumoniae Staphylococcus Aureus 01/27/21 Acid Fast Stain, Received Pending 01/27/21 Mycobacterial Culture, Received Pending 01/27/21 Fungal Smear, Received Pending 01/27/21 Fungal Culture, Received Pending 01/27/21 Gram Stain - Final, Complete 01/27/21 Body Fluid Culture - Final, Complete 01/27/21 Anaerobic Culture - Final, Complete 01/27/21 Blood Culture - Final, Complete NO GROWTH AFTER 5 DAYS 01/27/21 Blood Culture - Final, Complete NO GROWTH AFTER 5 DAYS Discharge Medications Scheduled Amlodipine Besylate (Amlodipine Besylate) 5 Mg Tablet, 5 MG PO DAILY, (Reported) Aspirin (Aspirin EC) 81 Mg Tablet.dr, 81 MG PO DAILY, (Reported) Budesonide/Glycopyr/Formoterol (Breztri Aerosphere Inhaler) 160 Mcg-9 Mcg-4.8 Mcg/Actuation Hfa.aer.ad, 2 PUFFS INH BID Calcium/Vitamin D (Calcium 500-Vit D3 200 Tablet) 1 Each Tablet, 500 MG PO DAILY Enoxaparin Sodium (Lovenox) 80 Mg/0.8 Ml Syringe, 70 MG SC Q12H Fluticasone Propion/Salmeterol (Advair Hfa 230-21 Mcg Inhaler) 12 Gm Hfa.aer.ad, 2 PUFF INH RBID Guaifenesin (Mucinex) 600 Mg Tab.er.12h, 600 MG PO BID Hydralazine HCl (Hydralazine HCl) 25 Mg Tablet, 25 MG PO Q8H Levofloxacin (Levofloxacin) 750 Mg Tablet, 750 MG PO DAILY@2100 Pantoprazole Sodium (Pantoprazole Sodium) 40 Mg Tablet.dr, 40 MG PO DAILY Prednisone (Prednisone) 10 Mg Tablet, 10 MG PO TAPER Take 4 tabs daily x 3 days, then 3 tabs daily x 3 days, then 2 tabs daily x 3 days, then 1 tab daily x 3 days and stop Scheduled PRN Acetaminophen (Acetaminophen) 325 Mg Tablet, 650 MG PO Q4H PRN for PAIN OR FEVER Albuterol Sulf (Albuterol Sulfate) 2.5 Mg/3 Ml Vial.neb, 2.5 MG INH Q6H PRN for SOB/WHEEZING Albuterol Sulfate (Ventolin Hfa) 18 Gm Hfa.aer.ad, 2 PUFFS INH QID PRN for SOB/WHEEZING Docusate Sodium (Dok) 100 Mg Capsule, 100 MG PO BID PRN for CONSTIPATION Oxycodone/Acetaminophen (Oxycodone-Acetaminophen 5-325) 1 Each Tablet, 1 TAB PO Q4H PRN for MODERATE PAIN (PS 5-7) Allergies Coded Allergies: No Known Allergies (Verified , 01/26/21) IVA YOUNGER MD Feb 03, 2021 11:57
--- NOTE | 2021-02-03 13:13 | IPN ---
PROGRESS NOTE DATE: 02/03/2021 Mr. Reeves is insisting upon going home. His chest tube is still putting out quite a bit, although I am not at all adverse to removing it. His CT yesterday showed his vena cava was starting to open up, and hopefully with the continued radiation therapy the pleural effusion will brandon. The worse case scenario is that I will have to place a PleurX catheter later on. The pleural fluid did not show any malignant cells and looks transudative. His vital signs show a maximum temperature of 97.4 with a heart rate that ranges between 83-91 in a sinus rhythm, respiratory rate of 17-18 without the use of accessory muscles, who is 94%-100% saturated on 3 liters nasal cannula and whose blood pressure is ranging between 150/93 to 135/92. His intake and output for the past 24 hours has been recorded as 695 in and 1745 out, for a negativity of 1050 mL. He has put out 435 mL from the chest tube and 175 mL in the last 12 hours. His weight is 72.9 kg compared to 71.4 kg yesterday. PHYSICAL EXAMINATION: He has equal breath sounds on either side with expiratory wheezing and coarse rhonchi, some of which cleared with coughing. Percussion note is full to the diaphragm. Cardiac exam is without murmurs, clicks, gallops, or rubs. I cannot feel his point of maximal impulse (PMI). S1 and S2 are normal. Abdomen is soft and nontender. Bowel sounds are positive. There is no hepatomegaly. No costovertebral angle (CVA) tenderness. Extremities show no pretibial edema, no calf tenderness. There is increased swelling of both upper extremities with the left greater than the right. The right looks a little bit less swollen today than it was yesterday, as does his face. Skin is warm, dry, and perfused without cyanosis or mottling, including that of the nailbeds and knees. Neck is supple. There is no jugular venous distention. No subcutaneous emphysema. Trachea is midline. Mouth shows the mucous membranes to be pink and moist. Lips and commissures without lesions. No thrush. Eyes show his pupils to be equal and reactive. Extraocular motion intact. Sclerae anicteric. Neurologic shows II-XII intact. Normal gross motor, gross sensation intact. Gait is not tested. Psychiatric shows him to be awake, alert, and oriented times three with appropriate mood and affect and conversational. His white count today is 16.9 with a hemoglobin and hematocrit of 10.2 and 32.8, respectively. Platelet count is 457 and stable, and differential shows 94% neutrophils, 1% lymphocytes, and 3% monocytes. There are no immature forms or toxic granulations. His chemistries show a marginally low sodium of 133 with a BUN and creatinine of 30 and 1.15. Glucose is 116 with a calcium of 7.9 and phosphorus of 2.5. His chest x-ray today shows his lung fully expanded to the chest wall. Chest tube is in good place. There is some blunting of both costophrenic angles. He has flat diaphragms. CT angiogram done yesterday shows an improvement in the diameter of the superior vena cava (SVC) and the innominate vein. The mass is not any smaller, and if so just marginally so. IMPRESSION: 1. 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 2. Brain metastasis from the same. 3. Massive mediastinal lymphadenopathy. 4. Superior vena caval syndrome. 5. Tobacco abuse. 6. Chronic obstructive pulmonary disease (COPD). 7. Renal insufficiency, resolved. 8. Hypercalcemia, resolved. 9. History of peripheral vascular disease. 10. Left extremity thrombosis. PLAN AND DISCUSSION: This is widely disseminated carcinoma with a limited life expectancy. I have no objections to him going home and being treated as an outpatient. He already has seen oncology, and that should be arranged before going home. He will return to see me in 1 week, and we will re-evaluate his fluid with a chest x-ray. If the vena cava continues to open, I think that the fluid will brandon, and my strategy will be to attempt thoracenteses prior to placing a PleurX catheter so long as he continues therapy. He does have an optimistic attitude.
== END 2021-02-03 16:13 | disposition home health service (06) | DRG 136 ==
LOC: M ED 11:09 → M ED INP 12:49 → ENRESERV 13:16 → M ICU 18:16 → M PCU 01-28 14:20
PROVIDERS: ADMIT Internal Medicine; ATTEND Family Medicine
PROC: 0BB18ZX Excision of Trachea, Via Natural or Artificial Opening Endoscopic, Diagnostic (ICD-10-PCS; principal; 2021-01-27 15:00)
PROC: 02HV33Z Insertion of Infusion Device into Superior Vena Cava, Percutaneous Approach (ICD-10-PCS; 2021-01-31)
DX: C34.91 Malignant neoplasm of unspecified part of right bronchus or lung (principal); J18.9 Pneumonia, unspecified organism; N17.9 Acute kidney failure, unspecified; J91.0 Malignant pleural effusion; I82.B11 Acute embolism and thrombosis of right subclavian vein; C78.39 Secondary malignant neoplasm of other respiratory organs; I82.C11 Acute embolism and thrombosis of right internal jugular vein; E87.2 Acidosis; C79.31 Secondary malignant neoplasm of brain; E87.5 Hyperkalemia; I87.1 Compression of vein; J44.1 Chronic obstructive pulmonary disease with (acute) exacerbation; E83.52 Hypercalcemia; I10 Essential (primary) hypertension; F17.200 Nicotine dependence, unspecified, uncomplicated; K21.9 Gastro-esophageal reflux disease without esophagitis; Z79.82 Long term (current) use of aspirin; Z79.899 Other long term (current) drug therapy; Z89.422 Acquired absence of other left toe(s)

== ENCOUNTER 2021-02-08 10:52 | Outpatient (RCR) | payer MEDICAID ==
[~2021-02-08 10:52] MED LIST changes: +ACET1TAB55 PO; +ADVA230A INH; +ALBU83IN INH; +CALCD50TA PO; +DOK1CAP7 PO; +GNP8.6TA7 PO; +HYDR25TA PO; +LEVO750T13 PO; +LOVE0.6I2 SC; +PANT40TA29 PO; +PERCOCET PO; +PRED10TA2 PO
--- NOTE | 2021-02-08 14:08 | RADENCPD ---
Date/Time of Encounter Date of Encounter: Feb 08, 2021 Time of Encounter: 11:00 Encounter Santino asked to see me after treatment today. He has completed 9/10 planned radiation treatments. He is concerned about worsening swelling in the upper extremities as well as increased SOB and particularly orthopnea, such that when he reclines he is unable to breath. On exam he has anasarca in the upper body, his shirt is soaked with weeping fluid from his tensely distended upper extremities. The fingers on the right hand are particularly dusky and the pulse oximeter will not register on this hand. His sats are in the high 80s on supplemental O2 3L. He is hoarse. I explained that I am concerned for his acute on chronic swelling and now, poor perfusion evident in his arms as well as increasing difficulty breathing. I think a palliative stent in the SVC in the short term is the only measure which will restore flow and allow resolution of this SVC syndrome as the latent effects of RT have yet to manifest. To this end I recommended that he present to the ED immediately. He stated he would not proceed to the ED until he goes home and attends to some things prior to returning to the ED later. I stated that this is against my medical advice, however he politely declined to go direct to the ED. I have alerted his glue specialty supervisor Dr Sinha and his thoracic surgeon Dr. Baez of the situation. Consensus is that he may require transfer to [facility] for s tenting if IR here cannot facilitate. MARY GRACE SPENCE MD Feb 08, 2021 14:08
--- NOTE | 2021-02-09 08:48 | RADENCPD ---
Date/Time of Encounter Date of Encounter: Feb 09, 2021 Time of Encounter: 08:42 Encounter Spoke to Renetta patient's sister. She states stent was not deemed technically feasible at [place] and he was discharged home overnight. He will come in for his final radiation treatment today. I will increase his steroid dose and add a diuretic in attempt to lessen his swelling, barring that, and with stent not feasible, the only other option to consider is whether chemotherapy would be feasible in his condition. To that end he has an appointment with medical oncology tomorrow. If chemotherapy is not an option, then I explained that strong consideration of hospice should be given as his SVC syndrome has progressed through the course of radiation. While it is possible that there is will be some latent RT effects, the probability of that there is a meaningful clinical improvement is low. The RT being focal to the mass blocking the SVC does not address the disease elsewhere. She was tearful but appreciative of this discussion. I remain available to her and the family and will see Santino when he comes in for treatment today and recount this conversation. MARY GRACE SPENCE MD Feb 09, 2021 08:48
[2021-02-10] MEDS ORDERED: MORP1SOL4 PO (09:16)
[2021-02-10] MEDS ORDERED: MORP20SO3 PO ×2 (11:09→12:38)
--- NOTE | 2021-02-10 12:51 | RADENCPD ---
Date/Time of Encounter Date of Encounter: Feb 10, 2021 Time of Encounter: 12:44 Encounter Spoke to Renetta (sister) whom Santino is staying with. He is not feeling well enough today to come for his medical oncology appointment or final RT session. He is intermittently alert and oriented but very tired. He complains of dyspnea, but no pain at present. I offered to assess him in person today in the office, however they politely de clined this. I discussed that he is potentially entering the terminal phase of his cancer SVC syndrome, and that focusing on his comfort now would be the best course. To that end I offered to make a hospice referral. Renetta was not ready to commit to that today without being able to discuss it with Santino further. For his dyspnea and air hunger, I prescribed liquid morphine 4-5 mg q4h PRN. Renetta and I agreed that if he struggles over the weekend that she will bring him to the ED. Barring this I will call back Saturday morning to assess him and if possible, advance further GOC discussions with Santino and Renetta, as he would be hospice appropriate. MARY GRACE SPENCE MD Feb 10, 2021 12:51
[2021-02-13] MEDS ORDERED: PRED20TA PO (09:20)
--- NOTE | 2021-02-13 09:26 | RADENCPD ---
Date/Time of Encounter Date of Encounter: Feb 13, 2021 Time of Encounter: 09:21 Encounter Spoke with Santino and Renetta, briefly Santino says that his hoarseness is worse and he is increasingly weak. Renetta reports that he has not been ambulatory over the weekend and that his lower extremities are swollen now as well. She has been giving him the low-dose morphine as a sleep aid. He is still eating shakes and otherwise liquid diet. I explained that this is all suggestive of continued disease progression despite RT to his mediastinal mass. Overall I think he would be appropriate for hospice. They have a medical oncology appointment for a final opinion on chemotherapy, I encouraged them to keep this appointment and at that time we can make decisions regarding hospice versus the alternative of cancer-directed therapies. As he is too weak to come into the office today I have cancelled his final RT fraction (he completed 27/30 Gy) and have cancelled his MRI head which was scheduled for tomorrow as he is unable to lay flat for this study and if he elects to pursue hospice then it would not be helpful to obtain. I will inform Dr. Nascimento of this conversation and his decline. MARY GRACE SPENCE MD Feb 13, 2021 09:26
[2021-02-24] MEDS ORDERED: PRED5PAK PO ×2 (13:35)
[2021-02-24] MEDS ORDERED: XARE10TA PO (13:35)
== END 2021-02-15 ==
LOC: M ONCR 10:52
PROVIDERS: ATTEND General Practice
DX: C77.1 Secondary and unspecified malignant neoplasm of intrathoracic lymph nodes (principal)

== ENCOUNTER 2021-02-08 14:30 | Emergency (ER) | payer MEDICAID ==
[~2021-02-08 14:30] MED LIST changes: +GNP8.6TA PO; -GNP8.6TA7 PO
[2021-02-08 16:31] LABS: RSV AMPLIFICATION NEGATIVE (NEGATIVE)
[2021-02-08 17:28] LABS: CK-MB VALUE MASS 7.2 NG/ML (<3.6); CPK CREATINE PHOSPHOKINASE 140 U/L (39-308); MB/CK RELATIVE INDEX 5.14 (< OR =4); TROPONIN I < 0.02 NG/ML (< 0.10)
--- NOTE | 2021-02-09 09:31 | ECGEPIP ---
[facility] Test Date: 2021-02-08 Pat Name: COLIN THOMSON Department: Room: - Gender: Male Accounting Systems Analyst: TACOS : 1965 Requested By: Pradip Mueller Order Number: [id number] Reading MD: Cortez Diggs Measurements Intervals [place] Rate: 91 P: 54 [place]: 132 QRS: 41 QRSD: 86 T: 61 QT: 308 QTc: 378 Interpretive Statements Normal sinus rhythm Low voltage QRS throughout Cannot rule out anterior infarct , age undetermined Nonspecific ST-T wave abnormalities No significant change when compared to prior tracing of 01/31/2021 Electronically Signed on 02-09-2021 9:30:39 EDT by Cortez Diggs
== END 2021-02-08 18:18 | disposition short-term general hospital (02) ==
LOC: M ED 14:30
DX: I87.1 Compression of vein (principal); C34.91 Malignant neoplasm of unspecified part of right bronchus or lung; N17.9 Acute kidney failure, unspecified; J44.1 Chronic obstructive pulmonary disease with (acute) exacerbation; F17.200 Nicotine dependence, unspecified, uncomplicated; Z79.899 Other long term (current) drug therapy

== ENCOUNTER → 2021-02-21 | Outpatient (POV) | payer MEDICAID, OTHER ==
[~2021-02-21] VITALS: Ht 180.3 cm; Wt 72.3 kg
[~2021-02-21] MED LIST changes: +MORP1SOL4 PO; +MORP20SO3 PO
[2021-02-21 14:35] VITALS: BP 130/82
--- NOTE | 2021-02-23 11:32 | IRCOV ---
[facility] IR Consult Office Visit IR Consult Office Visit DATE: Feb 21, 2021 REASON FOR CONSULTATION/CHIEF COMPLAINT: SVC syndrome. 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 CT workup at the time demonstrated extensive mediastinal lymphadenopathy. He was transferred to [place] where he was diagnosed with brain metastases. He underwent bronchoscopy with Dr. Baez which revealed tumor throughout the tracheobronchial tree on b oth sides and a large right-sided pleural effusion. This was drained. He then underwent radiation therapy with Dr. Brooke, 27/30 jones to the mediastinum. He was referred to [facility] for SVC stenting but they felt he was not a candidate. Today he complains of dry throat and sore throat for several months now. This is a same before and after radiation therapy. He states he finds it difficult to swallow. He also complains of nausea. He drinks ensure 2-3 a day. He states his face and neck were much more swollen several weeks ago compared to now. He states he used to look like Riaz, several weeks ago but the swelling has gone down significantly. He reports both his hands and feet are swollen. He describes waking up in the middle of the night, sitting up and gasping for breath. His shortness of breath at baseline is unchanged for over 6 months. He continues to smoke. He has been on Lovenox 70 mg twice a day and steroids 20 mg twice a day. ALLERGIES: Please see below. HOME MEDICATIONS: Please see below. PAST MEDICAL HISTORY: COPD Peripheral vascular disease Suicide attempt DVT PAST SURGICAL HISTORY: Cholecystectomy Inguinal hernia repair 2 Left second and third digit amputation Left lower extremity stent FAMILY HISTORY: Noncontributory. SOCIAL HISTORY: 75-mazk-muzu history. Active smoker. Denies alcohol or drugs. REVIEW OF SYSTEMS: Otherwise negative. PHYSICAL EXAMINATION: VITAL SIGNS: Please see below. GENERAL APPEARANCE: Short of breath at rest. Cannot speak in complete sentences due to shortness of breath. Mild swelling of the face. No significant engorged veins on the neck, chest wall or back. No significant upper extremity swelling. Clavicle and glenohumeral, acromioclavicular bony landmarks are all palpable. HEENT: No scleral icterus. RESPIRATORY: Using accessory muscle to breathe. Diminished breath sounds bilaterally. CARDIOVASCULAR: Normal rate. ABDOMEN: Non-distended. EXTREMITIES: Edema of hands and feet. NEUROLOGICAL: Alert and oriented. PSYCHIATRIC: Appropriate to circumstance. LABORATORY DATA: 02/03/2021 hemoglobin 10.2 hematocrit 32.8 WBC 16.9 platelets 457 sodium 133 potassium 4.8 BUN 30 creatinine 1.15 GFR greater than 60 01/29/2021 total bilirubin 0.2 GGT 42 AST 6 ALT 18 ALP 125 01/27/2021 BNP 1663 02/17/21 INR 0.94 Imaging: I personally reviewed the CT angio of the chest performed 02/02/2021. There is left axillary, subclavian and brachiocephalic vein thrombus. Trickle of contrast flows through the brachiocephalic into the SVC which is compressed by the mediastinal adenopathy. Extensive venous collateralization over the neck and left greater than right chest wall, axilla and posterior thorax. ASSESSMENT/PLAN: 56-year-old male with metastatic lung cancer, squamous in origin with bulky mediastinal adenopathy causing SVC compression. Compared to his CT angiogram from 02/02/2021, I see a remarkable clinical difference. I don't see the engorged veins on his neck or anterior or posterior thorax. His facial swelling has decreased. He's also been on Lovenox for his brachiocephalic thrombus. I think the combination of anticoagulation, radiation therapy and steroids has probably improved his venous drainage and he is no longer in full- blown SVC syndrome. In terms of quality of life, if patient is having a difficult with eating, we can consider a G-tube placement for nutrition. If any further palliative chemotherapy is planned, I'd be happy to consider him for a port. Given his generalized anasarca, possible paroxysmal nocturnal dyspnea and elevated BNP, he may benefit from an echocardiogram. I spent 30 minutes in consultation with the patient. Thank you for this referral. Cc Dr. Nascimento Cc Dr. Brooke Allergies Coded Allergies: No Known Allergies (Verified , 01/26/21) Home Medications Scheduled Amlodipine Besylate (Amlodipine Besylate), 5 MG PO DAILY, (Reported) Aspirin (Aspirin EC), 81 MG PO DAILY, (Reported) Budesonide/Glycopyr/Formoterol (Breztri Aerosphere Inhaler), 2 PUFFS INH BID Calcium/Vitamin D (Calcium 500-Vit D3 200 Tablet), 500 MG PO DAILY Enoxaparin Sodium (Lovenox), 70 MG SC Q12H Fluticasone Propion/Salmeterol (Advair Hfa 230-21 Mcg Inhaler), 2 PUFF INH RBID Guaifenesin (Mucinex), 600 MG PO BID Hydralazine HCl (Hydralazine HCl), 25 MG PO Q8H Levofloxacin (Levofloxacin), 750 MG PO DAILY@2100 Pantoprazole Sodium (Pantoprazole Sodium), 40 MG PO DAILY Prednisone (Prednisone), 1 TAB PO DAILY Scheduled PRN Acetaminophen (Acetaminophen), 650 MG PO Q4H PRN for PAIN OR FEVER Albuterol Sulf (Albuterol Sulfate), 2.5 MG INH Q6H PRN for SOB/WHEEZING Albuterol Sulfate (Ventolin Hfa), 2 PUFFS INH QID PRN for SOB/WHEEZING Docusate Sodium (Dok), 100 MG PO BID PRN for CONSTIPATION Morphine Sulfate (Morphine Sulfate), 0.25 ML PO Q4H PRN for DYSPNEA VS, I&O, 24H, Fishbone Vital Signs/I&O Vital Signs Date Time Temp Pulse Resp B/P (MAP) Pulse Ox O2 Delivery O2 Flow Rate FiO2 02/21/21 14:35 98.0 94 22 130/82 (98) 100 Nasal Cannula DEANDRA NIELSON MD Feb 23, 2021 11:32
== END ==
LOC: M IRPOV 14:25
PROVIDERS: ATTEND Radiology Diagnostic Radiology
DX: I82.A12 Acute embolism and thrombosis of left axillary vein (principal); I82.B12 Acute embolism and thrombosis of left subclavian vein; I82.290 Acute embolism and thrombosis of other thoracic veins; C34.91 Malignant neoplasm of unspecified part of right bronchus or lung; C34.92 Malignant neoplasm of unspecified part of left bronchus or lung; C79.31 Secondary malignant neoplasm of brain; F17.210 Nicotine dependence, cigarettes, uncomplicated; I73.9 Peripheral vascular disease, unspecified; J90 Pleural effusion, not elsewhere classified; J44.9 Chronic obstructive pulmonary disease, unspecified; R59.0 Localized enlarged lymph nodes; R60.1 Generalized edema; Z86.718 Personal history of other venous thrombosis and embolism; Z92.3 Personal history of irradiation

== ENCOUNTER 2021-03-11 20:58 | Inpatient (IN) | payer OTHER ==
[~2021-03-11] VITALS: Ht 180.3 cm; Wt 65.1 kg
[~2021-03-11 20:58] MED LIST changes: -GNP8.6TA PO; +GNP8.6TA7 PO; +PRED5PAK PO; +XARE10TA PO
[2021-03-11] MEDS ORDERED: predniSONE 5 MG TAB PO SCH (21:00)
[2021-03-11] MEDS ORDERED: **hydrALAZINE HCL** 25 MG TAB PO SCH (21:00)
[2021-03-11] MEDS ORDERED: COMBIVENT RESPIMAT 100-20MCG INHALER 4GM INH STA (22:09)
--- NOTE | 2021-03-11 22:15 | REPVR ---
PROCEDURE INFORMATION: Exam: US Duplex Left Lower Extremity Veins, Limited Exam date and time: 03/11/2021 9:58 PM Age: 56 years old Clinical indication: Edema, localized; Lower extremity, left; Additional info: Swelling TECHNIQUE: Imaging protocol: Real-time Duplex ultrasound of the Left Lower Extremity with 2-D jones scale, color Doppler flow and spectral waveform analysis with image documentation. Limited exam focused on the left lower extremity veins. COMPARISON: LOWER EXTREMITY ARTERIAL US 02/07/2018 10:56 AM FINDINGS: Left deep veins: Unremarkable. The common femoral, femoral, proximal profunda femoral and popliteal veins are patent without thrombus. Normal Doppler waveforms. Normal compressibility and/or augmentation response. Left superficial veins: Unremarkable. Saphenofemoral junction is patent without thrombus. Soft tissues: Leg swelling. IMPRESSION: No evidence of deep vein thrombosis. Electronically signed by: Yung Bailey On 03/11/2021 22:14:49 PM
[2021-03-11 22:28] LABS: VENOUS BASE EXCESS -4.2 (-2.0-2.0); VENOUS HCO3 22.4 MEQ/L (23.0-27.0); VENOUS O2 SATURATION 53.4 % (60.0-80.0); VENOUS PARTIAL PRESSURE CO2 46.8 mmHg (38.0-50.0); VENOUS PH 7.297 UNITS (7.330-7.430); VENOUS STANDARD HCO3 20.1 MEQ/L; VENOUS TOTAL CO2 23.8 MEQ/L (24.0-28.0)
--- NOTE | 2021-03-11 22:30 | REPVR ---
PROCEDURE INFORMATION: Exam: US Duplex Left Upper Extremity Veins, Limited Exam date and time: 03/11/2021 9:58 PM Age: 56 years old Clinical indication: Edema, localized; Upper extremity, left; Additional info: Swelling TECHNIQUE: Imaging protocol: Real-time Duplex ultrasound of the Left Upper Extremity with 2-D jones scale, color Doppler flow and spectral waveform analysis with image documentation. Limited exam focused on the left upper extremity veins. COMPARISON: US DUPLEX EXT UPPER VEINS BILAT 01/31/2021 3:33 PM FINDINGS: Left deep veins: There is echogenic thrombus within the left subclavian vein which is nonocclusive as there is venous return along the margin. More hypoechoic thrombus is seen within the axillary vein with a thin channel of venous return along the margin. This is significant thrombus within the they. The thrombus extends to the proximal brachial vein. Below this there is venous return. There is venous return of the cephalic vein and basilic vein. Left superficial veins: Unremarkable. Visualized cephalic and basilic veins are patent without thrombus. Soft tissues: Arm swelling. IMPRESSION: Significant thrombus within the left subclavian vein and axillary vein with a small channel of venous return identified. This extends into a proximal branch of the left brachial vein as well. Electronically signed by: Yung Bailey On 03/11/2021 22:29:51 PM
[2021-03-11 22:32] LABS: HEMATOCRIT 37.4 % (42.0-52.0); HEMOGLOBIN 11.9 g/dl (13.5-17.5); MEAN CORPUSCULAR HEMOGLOBIN 28.7 pg (27.0-33.0); MEAN CORPUSCULAR HGB CONC 31.8 g/dl (32.0-36.5); MEAN CORPUSCULAR VOLUME 90.3 fl (80.0-96.0); PLATELET COUNT, AUTOMATED 256 10^3/uL (150-450); RED BLOOD COUNT 4.14 10^6/uL (4.30-6.10); WHITE BLOOD COUNT 15.7 10^3/uL (4.0-10.0)
[2021-03-11 22:48] LABS: ANISOCYTOSIS 1+; EOSINOPHILS 5 % (0-3); HYPOCHROMASIA 1+; LYMPHOCYTES 2 % (16-44); METAMYELOCYTES 1 % (0-0); MONOCYTES 4 % (0-5); NEUTROPHILS 81 % (28-66); PLATELET ESTIMATE NORMAL (NORMAL)
[2021-03-11 22:57] LABS: RSV AMPLIFICATION NEGATIVE (NEGATIVE)
[2021-03-11 23:06] LABS: ALBUMIN 2.5 GM/DL (3.2-5.2); ALT/SGPT 25 U/L (12-78); BILIRUBIN,DIRECT 0.3 MG/DL (0.0-0.2); BILIRUBIN,TOTAL 0.6 MG/DL (0.2-1.0); BLOOD UREA NITROGEN 67 MG/DL (7-18); CARBON DIOXIDE LEVEL 25 MEQ/L (21-32); CHLORIDE LEVEL 103 MEQ/L (98-107); CK-MB VALUE MASS 16.9 NG/ML (<3.6); CPK CREATINE PHOSPHOKINASE 974 U/L (39-308); CREATININE FOR GFR 1.96 MG/DL (0.70-1.30); GLOMERULAR FILTRATION RATE 37.7 (>56); GLUCOSE, FASTING 100 MG/DL (70-100); MB/CK RELATIVE INDEX 1.74 (< OR =4); NT-PRO BNP 2700 PG/ML (<125); POTASSIUM SERUM 5.1 MEQ/L (3.5-5.1); SODIUM LEVEL 136 MEQ/L (136-145); TOTAL PROTEIN 5.5 GM/DL (6.4-8.2); TROPONIN I < 0.02 NG/ML (< 0.10)
--- NOTE | 2021-03-11 23:06 | REPVR ---
PROCEDURE INFORMATION: Exam: XR Chest Exam date and time: 03/11/2021 10:23 PM Age: 56 years old Clinical indication: Other: Dyspnea/cough TECHNIQUE: Imaging protocol: XR of the chest. Views: 1 view. COMPARISON: CR Chest, 2 view PA, Lat 02/01/2021 8:04 AM FINDINGS: Lungs: There is atelectasis and pneumonic infiltrate in both lung bases but greater on the left. Pleural spaces: There are small bilateral pleural effusions. There is no evidence of pneumothorax. Heart/Mediastinum: There is some prominence left side of the heart. Bones/joints: Unremarkable. IMPRESSION: 1. There are small bilateral pleural effusions. 2. There is atelectasis and pneumonia in both lung bases greater on the left. Electronically signed by: Yung Bailey On 03/11/2021 23:06:08 PM
[2021-03-11] MEDS ORDERED: HEPARIN SOD (PORCINE) 5000UNITS/ML 1ML VIAL/SYRINGE IV ONE (23:25)
[2021-03-11] MEDS ORDERED: HEPARIN (FLUSH) 100 UNITS in SODIUM CHLORIDE 0.45% 99 ML UAC SCH (23:25)
[2021-03-11] MEDS ORDERED: HEPARIN DRIP 25,000 UNITS in IV 1 EA IV SCH (23:25)
[2021-03-11] MEDS ORDERED: VANCOMYCIN HCL 1,000 MG, VIAL MATE ADAPTER 1 EACH in NS 250 ML IV ONE (23:35)
[2021-03-11] MEDS ORDERED: CEFEPIME HCL 1 GM in D5W MINI-BAG PLUS 50 ML IV ONE (23:35)
[2021-03-11] MEDS ORDERED: HYDR-3910 PO (23:38)
[2021-03-11] MEDS ORDERED: PRED5TA PO (23:38)
[2021-03-11] MEDS ORDERED: MUCI600T31 PO (23:38)
[2021-03-11] MEDS ORDERED: ALBU83IN NEB (23:38)
[2021-03-11] MEDS ORDERED: PANT-23 PO (23:38)
[2021-03-11] MEDS ORDERED: BUDE10.7 INH (23:38)
[2021-03-11] MEDS ORDERED: VENTAER INH (23:38)
[2021-03-11] MEDS ORDERED: MORP20SO3 PO (23:38)
[2021-03-12] VITALS (17 sets, daily range): BP systolic 87–104; BP diastolic 61–69; O2SAT 95–98
[2021-03-12 00:26] LABS: INR 1.07; PROTHROMBIN TIME 14.2 SECONDS (12.5-14.3)
[2021-03-12 00:27] LABS: PARTIAL THROMBOPLASTIN TIME 33.2 SECONDS (24.2-38.5)
[2021-03-12] MEDS ORDERED: VANCOMYCIN HCL 750 MG, VIAL MATE ADAPTER 1 EACH in NS 250 ML IV ONE (00:35)
[2021-03-12] MEDS ORDERED: ALBUTEROL SULFATE 2.5 MG/0.5 ML INH NEB SOLN NEB PRN ×2 (01:20→04:50)
[2021-03-12] MEDS ORDERED: ACETAMINOPHEN TAB 650MG DOSE (2X325MG) PO PRN (01:20)
[2021-03-12] MEDS ORDERED: FUROSEMIDE 20MG/2ML VIAL (J1940) IV ONE (01:50)
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
[2021-03-12 03:00] LABS: SODIUM,RANDOM URINE < 10 MEQ/L; UREA NITROGEN RANDOM URINE 759 MG/DL
--- NOTE | 2021-03-12 03:57 | REPVR ---
PROCEDURE INFORMATION: Exam: US Abdomen; Limited Exam date and time: 03/12/2021 3:07 AM Age: 56 years old Clinical indication: Bloating; Additional info: Rule out acites TECHNIQUE: Imaging protocol: US abdomen. Real time ultrasound with image documentation. Limited exam focused on the region of clinical interest. COMPARISON: 1. CT ABD/PELVIS W/ CONTRAST - OUTSIDE PRIOR 2021-01-09 18:43 2. RENAL US 2021-03-12 02:52 FINDINGS: Pleural space: Left greater than right small pleural effusions. Intraperitoneal space: No ascites. IMPRESSION: 1. Left greater than right small pleural effusions. 2. No ascites. Electronically signed by: Ori Zarate On 03/12/2021 03:56:33 AM
[2021-03-12] MEDS: guaiFENesin ER 600 MG TAB PO SCH ×2 (04:00→09:07)
[2021-03-12] MEDS ORDERED: methylPREDNISolone 125MG 2ML VIAL IV SCH (04:00)
[2021-03-12] MEDS: ENOXAPARIN 80MG/0.8ML SYRINGE (J1650 PER 10MG) SC SCH ×2 (04:19→14:31)
--- NOTE | 2021-03-12 04:34 | REPVR ---
PROCEDURE INFORMATION: Exam: US Retroperitoneal Limited, Kidneys Exam date and time: 03/12/2021 3:07 AM Age: 56 years old Clinical indication: Abnormal findings; Abnormal lab test; Abnormal kidney function lab tests; Additional info: Cesar TECHNIQUE: Imaging protocol: Real-time ultrasound of the retroperitoneum with image documentation. Examination was focused on the kidneys. COMPARISON: 1. CT ABD/PELVIS W/ CONTRAST - OUTSIDE PRIOR 2021-01-09 18:43 2. US RENAL - OUTSIDE PRIOR 2021-01-09 21:24 FINDINGS: Right kidney: 13 x 6 x 7 cm right kidney with echogenic appearance. Mild right renal hydronephrosis. Heterogeneous right renal cortex. 13 x 6 x 7 cm right kidney has increased echogenicity with heterogeneous renal cortex. Left kidney: 9 mm echogenic lesion in the inferior left kidney, suspect pseudo abnormality related to scan planes and technique, less likely mass. Bladder: Bilateral ureteral jets are not visualized, although the bladder is not well distended. IMPRESSION: Bilateral hyperechoic kidneys with heterogeneous cortex. Evidence of chronic renal disease. Electronically signed by: Ori Zarate On 03/12/2021 04:33:37 AM
[2021-03-12] MEDS ORDERED: FUROSEMIDE 40MG/4ML VIAL (J1940) IV SCH (05:00)
[2021-03-12 06:12] LABS: HEMATOCRIT 36.7 % (42.0-52.0); HEMOGLOBIN 11.4 g/dl (13.5-17.5); MEAN CORPUSCULAR HEMOGLOBIN 27.7 pg (27.0-33.0); MEAN CORPUSCULAR HGB CONC 31.1 g/dl (32.0-36.5); MEAN CORPUSCULAR VOLUME 89.3 fl (80.0-96.0); PLATELET COUNT, AUTOMATED 229 10^3/uL (150-450); RED BLOOD COUNT 4.11 10^6/uL (4.30-6.10); WHITE BLOOD COUNT 13.6 10^3/uL (4.0-10.0)
[2021-03-12 06:53] LABS: CALCIUM LEVEL 7.3 MG/DL (8.5-10.1); CREATININE FOR GFR 1.72 MG/DL (0.70-1.30); FREE T3 0.8 PG/ML (2.2-4.0); FREE T4 0.93 NG/DL (0.76-1.46); GLOMERULAR FILTRATION RATE 43.9 (>56); MAGNESIUM LEVEL 2.9 MG/DL (1.8-2.4); PHOSPHORUS LEVEL 3.4 MG/DL (2.5-4.9); POTASSIUM SERUM 4.9 MEQ/L (3.5-5.1)
[2021-03-12] MEDS: IPRATROPIUM 0.5MG/ALBUTEROL 2.5MG INH SOL UD 3ML (DUONEB) NEB SCH ×3 (07:14→20:53)
[2021-03-12] MEDS ORDERED: ASPIRIN 81MG ENTERIC TABLET PO SCH (09:00)
[2021-03-12] MEDS: PANTOPRAZOLE 40MG TAB (PROTONIX) PO SCH (09:07)
--- NOTE | 2021-03-12 11:49 | ECGEPIP ---
[facility] - ED Test Date: 2021-03-11 Pat Name: COLIN THOMSON Department: Room: [place] [address] Gender: Male Emergency Room Specialist: YASEMIN : 1965 Requested By: Krupa Aviles Order Number: [id number] Reading MD: Krupa Aviles Measurements Intervals [place] Rate: 88 P: 48 MT: 130 QRS: 21 QRSD: 84 T: 117 QT: 350 QTc: 423 Interpretive Statements Normal sinus rhythm Low voltage QRS Cannot rule out Anterior infarct , age undetermined similar 02/08/21 Electronically Signed on 03-12-2021 11:49:15 EDT by Krupa Aviles
[2021-03-13] VITALS: BP 92/63
[2021-03-13] MEDS: ENOXAPARIN 80MG/0.8ML SYRINGE (J1650 PER 10MG) SC SCH ×2 (02:01→12:32)
[2021-03-13] MEDS: MORPHINE 10MG/0.5ML ORAL CONCENTRATE SOLUTION U/D PO PRN ×2 (02:03→08:39)
[2021-03-13] MEDS: IPRATROPIUM 0.5MG/ALBUTEROL 2.5MG INH SOL UD 3ML (DUONEB) NEB SCH ×2 (02:12→06:06)
[2021-03-13 04:00] VITALS: BP 106/75; O2SAT 94
[2021-03-13] MEDS ORDERED: guaiFENesin/CODEINE SYRUP 5 ML UDC PO ONE (04:10)
[2021-03-13] MEDS ORDERED: FUROSEMIDE 40MG/4ML VIAL (J1940) IV ONE (04:10)
--- NOTE | 2021-03-13 04:13 | IPNPDOC ---
Text Note Date of Service The patient was seen on 03/13/21. NOTE 400am I was informed by the patient's RN that his O2 sats dropped to 87 % on 3L despite receiving a neg about 1 H prior At the time of my evaluation the patient was c/o dyspnea and producing a lot of phlegm; he feels like the nebs are not helping his breathing. His arm swelling had improved a bit but has not completely resolved. PE: RR 18 / expiratory crackles Plan: give one dose of guaifenesin, give 1 dose of IV lasix, try acapella / will ask RN to call phlebotomy early to draw blood work VS,Fishbone, I+O VS, Fishbone, I+O Laboratory Tests 03/12/21 05:28 Vital Signs Date Time Temp Pulse Resp B/P (MAP) Pulse Ox O2 Delivery O2 Flow Rate FiO2 03/13/21 02:36 16 03/13/21 02:03 93 Nasal Cannula 3.0 03/13/21 00:00 97.6 80 92/63 (73) I&O- Last 24 Hours up to 6 AM 03/13/21 06:00 Intake Total 470.0 ml Output Total 750 ml Balance -280.0 ml HELEN PYLE MD Mar 13, 2021 04:12
[2021-03-13 06:06] VITALS: O2SAT 91
[2021-03-13 07:09] VITALS: BP 91/60
[2021-03-13 07:53] LABS: CALCIUM LEVEL 7.2 MG/DL (8.5-10.1); CREATININE FOR GFR 2.05 MG/DL (0.70-1.30); GLOMERULAR FILTRATION RATE 35.8 (>56); POTASSIUM SERUM 4.9 MEQ/L (3.5-5.1)
[2021-03-13] MEDS: PANTOPRAZOLE 40MG TAB (PROTONIX) PO SCH (08:37)
[2021-03-13] MEDS ORDERED: guaiFENesin SYRUP 200 MG/10 ML UDC PO PRN (09:05)
[2021-03-13] MEDS ORDERED: ONDANSETRON 4 MG ORAL DISINTEGRATING TAB PO PRN (09:05)
[2021-03-13] MEDS ORDERED: HYOSCYAMINE SULFATE 0.125 MG SUBL TABLET PO PRN (09:05)
--- NOTE | 2021-03-13 09:33 | ECHO ---
DATE OF PROCEDURE: 03/12/2021 Age: 56 Gender: Male Height: 180 cm Weight: 72 kg REFERRING PHYSICIAN: Hector Thomas D.O. INDICATION: Localized edema, unspecified. MEASUREMENTS: 2D Measurements: Intraventricular septum 1.45 cm Posterior wall 1.40 cm Left ventricle diastole 2.6 cm Left atrium 3.1 cm Aortic root 3.5 cm Aortic annulus 2.4 cm Inferior vena cava 2.8 cm (marked reduction of respiratory variation) Doppler Measurements: No aortic stenosis No aortic regurgitation No mitral regurgitation No mitral stenosis Mitral E velocity 37.0 cm/s Mitral A velocity 38.1 cm/s Mitral deceleration time 106 msec No tricuspid regurgitation No pulmonic regurgitation Pulmonary artery acceleration time 87 msec MITRAL ANNULAR TISSUE DOPPLER E prime septal 8.4 cm/s, E prime lateral 11.2 cm/s DESCRIPTION: This was a moderately technically difficult echocardiogram. The study was performed with the patient supine. Rhythm was sinus. No pericardial effusion. This was a 2D, M-mode, color flow Doppler, and pulsed wave Doppler examination including mitral annular tissue Doppler. CONCLUSIONS: 1. Mild concentric left ventricular hypertrophy. Reduced LV cavity size at end- diastole. Normal regional LV wall motion and wall thickening. Normal LV systolic function. LVEF 70% by visual estimate. Normal LV diastolic function. 2. Suggestive of moderate elevation of pulmonary artery systolic pressure. Normal right ventricle size with right ventricular hypertrophy. Normal right ventricle systolic function. 3. Inferior vena cava plethora. Suggestive of elevated central venous pressure of at least 20 mmHg. 4. Moderate aortic valve sclerosis of a 3-cuspid aortic valve. No aortic stenosis or aortic regurgitation. 5. Moderately technically difficult echocardiogram. [facility]
[2021-03-13] MEDS ORDERED: MORPHINE 10MG/0.5ML ORAL CONCENTRATE SOLUTION U/D SL PRN (10:00)
[2021-03-13] MEDS: LORazepam 1 MG TAB PO PRN ×2 (11:17→14:32)
[2021-03-13 11:54] LABS: CORTISOL AM 147.2 UG/DL (4.3-22.4)
[2021-03-13] MEDS ORDERED: ATIV1TAB10 PO (12:25)
[2021-03-13] MEDS ORDERED: MORP20SO3 PO (12:25)
[2021-03-13] MEDS ORDERED: HYOS125TA PO (12:25)
--- NOTE | 2021-03-13 12:41 | RADENCPD ---
Date/Time of Encounter Date of Encounter: Mar 13, 2021 Time of Encounter: 12:39 Encounter Spoke with Santino at bedside and Renetta by phone. Discussed hospice given his continued functional decline, dyspnea and failure to thrive. There are no viable cancer-directed therapies for him at this point. They both agreed for home hospice. Floor team to arrange. MARY GRACE SPENCE MD Mar 13, 2021 12:41
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
== END 2021-03-13 14:43 | disposition hospice, home (50) | DRG 197 ==
LOC: M ED 20:58 → M ED INP 03-12 00:40 → ENRESERV 03-12 02:12 → M PCU 03-12 03:11
PROVIDERS: ADMIT Internal Medicine; ATTEND Internal Medicine Nephrology
DX: I82.A12 Acute embolism and thrombosis of left axillary vein (principal); J96.11 Chronic respiratory failure with hypoxia; N17.9 Acute kidney failure, unspecified; C34.90 Malignant neoplasm of unspecified part of unspecified bronchus or lung; R13.10 Dysphagia, unspecified; I82.B12 Acute embolism and thrombosis of left subclavian vein; C79.31 Secondary malignant neoplasm of brain; J44.9 Chronic obstructive pulmonary disease, unspecified; Z79.82 Long term (current) use of aspirin; Z79.899 Other long term (current) drug therapy; I73.9 Peripheral vascular disease, unspecified; F17.210 Nicotine dependence, cigarettes, uncomplicated; F12.90 Cannabis use, unspecified, uncomplicated